=== PATIENT | male | born 1990 | race African-American/Black ===

== ENCOUNTER 2022-06-10 10:44 | Inpatient (IN) | payer OTHER ==
[2022-06-10] MEDS ORDERED: SODIUM CHLORIDE 0.9% 1,000 ML IV ONE ×2 (11:34→15:25)
--- NOTE | 2022-06-10 11:34 | ED ---
General Adult HPI - General Chief complaint: Weakness Stated complaint: Sickle Cell Time Seen by Provider: 06/10/22 11:23 Source: patient, RN notes reviewed Mode of arrival: ambulatory Limitations: no limitations - History of Present Illness Initial comments: 32-year-old -Chinese male with a past medical history significant for sickle cell disease presents to the emergency department for generalized fatigue. He reports that he felt this way for approximately 2 weeks. He reports that it was worse today as he was not able to get a good night's sleep last night. He denies any recent known sick contacts. He reports accompanying symptoms of palpitations. He denies any dizziness, lightheadedness, chest pain, shortness of breath, cough, abdominal pain, nausea, vomiting with this. He does report that his last bowel movement was yesterday and was non-bloody diarrhea. - Related Data Home Medications Medication Instructions Recorded Confirmed No Known Home Medications 06/10/22 06/10/22 Allergies Allergy/AdvReac Type Severity Reaction Status Date / Time cefazolin Allergy Rash/Hives Verified 06/10/22 13:07 Review of Systems ROS Statement: Those systems with pertinent positive or pertinent negative responses have been documented in the HPI. ROS Other: All systems not noted in ROS Statement are negative. Past Medical History Additional Past Medical History / Comment(s): sickle cell History of Any Multi-Drug Resistant Organisms: None Reported Past Surgical History: Cholecystectomy Past Psychological History: No Psychological Hx Reported Smoking Status: Current every day smoker Past Alcohol Use History: None Reported Past Drug Use History: None Reported General Exam Limitations: no limitations General appearance: alert, in no apparent distress Head exam: Present: atraumatic, normocephalic, normal inspection Eye exam: Present: normal appearance, PERRL, EOMI. Absent: scleral icterus, conjunctival injection, periorbital swelling ENT exam: Present: normal exam, mucous membranes moist Neck exam: Present: normal inspection. Absent: tenderness, meningismus, lymphadenopathy Respiratory exam: Present: normal lung sounds bilaterally. Absent: respiratory distress, wheezes, rales, rhonchi, stridor Cardiovascular Exam: Present: regular rate, normal rhythm, normal heart sounds. Absent: systolic murmur, diastolic murmur, rubs, gallop, clicks GI/Abdominal exam: Present: soft, normal bowel sounds. Absent: distended, tenderness, guarding, rebound, rigid Extremities exam: Present: normal inspection, full ROM, normal capillary refill. Absent: tenderness, pedal edema, joint swelling, calf tenderness Back exam: Present: normal inspection Neurological exam: Present: alert, oriented X3, CN II-XII intact Psychiatric exam: Present: normal affect, normal mood Skin exam: Present: warm, dry, intact, normal color. Absent: rash Course Vital Signs 06/10/22 06/10/22 06/10/22 11:17 12:00 12:11 Temperature 98.4 F 100.0 F H 100.4 F H Pulse Rate 83 77 Respiratory 18 16 Rate Blood Pressure 147/72 118/74 O2 Sat by Pulse 95 Oximetry 06/10/22 06/10/22 06/10/22 13:00 15:00 15:28 Temperature 98.7 F Pulse Rate 77 67 73 Respiratory 16 15 16 Rate Blood Pressure 131/76 121/73 114/69 O2 Sat by Pulse 99 99 99 Oximetry - Reevaluation(s) Reevaluation #1: 06/10/22 13:18 Patient reevaluated. Patient reports feeling tired however he is not in any acute distress. Patient notified awaiting additional test results. Reevaluation #2: 06/10/22 16:[address] Reardon, EMS who agrees and accepts the patient for admission EKG Findings - EKG Comments: EKG Findings:: I interpreted the following: EKG performed at 11:54. Rate 77 bpm normal sinus rhythm, with left ventricular hypertrophy. DC interval 155, QRS duration 94, QT/QTc 352/384 Medical Decision Making - Medical Decision Making Was pt. sent in by a medical professional or institution (, PA, NEUROPHYSIOLOGICAL TECHNICIAN, urgent care, hospital, or senior living...) When possible be specific @ -[No] Did you speak to anyone other than the patient for history (EMS, parent, family, police, friend...)? What history was obtained from this source @ -[No] Did you review nursing and triage notes (agree or disagree)? Why? @ -[I reviewed and agree with nursing and triage notes] Were old charts reviewed (outside hosp., previous admission, EMS record, old EKG, old radiological studies, urgent care reports/EKG's, senior living records)? Report findings @ -[No old charts were reviewed] Differential Diagnosis (chest pain, altered mental status, abdominal pain women, abdominal pain men, vaginal bleeding, weakness, fever, dyspnea, syncope, headache, dizziness, GI bleed, back pain, seizure, CVA, palpatations, mental health, musculoskeletal)? @ -[not applicable] EKG interpreted by me (3pts min.). @ -[As above] X-rays interpreted by me (1pt min.). @ -[None done] CT interpreted by me (1pt min.). @ -[None done] U/S interpreted by me (1pt. min.). @ -[None done] What testing was considered but not performed or refused? (CT, X-rays, U/S, labs)? Why? @ -[None] What meds were considered but not given or refused? Why? @ -[None] Did you discuss the management of the patient with other professionals (professionals i.e. , PA, NEUROPHYSIOLOGICAL TECHNICIAN, lab, RT, psych nurse, social work faculty member, sweatband drummer, teacher, animal park code enforcement officer, pillowcase cleaner)? Give summary @ -[No] Was smoking cessation discussed for >3mins.? @ -[No] Was critical care preformed (if so, how long)? @ -[No] Were there social determinants of health that impacted care today? How? (Homelessness, low income, unemployed, alcoholism, drug addiction, transportation, low edu. Level, literacy, decrease access to med. care, [facility], rehab)? @ -[No] Was there de-escalation of care discussed even if they declined (Discuss DNR or withdrawal of care, Hospice)? DNR status @ -[No] What co-morbidities impacted this encounter? (DM, HTN, Smoking, COPD, CAD, Cancer, CVA, ARF, Chemo, Hep., AIDS, mental health diagnosis, sleep apnea, morbid obesity)? @ -[None] Was patient admitted / discharged? Hospital course, mention meds given and route, prescriptions, significant lab abnormalities, going to OR and other pertinent info. @ -Admission. This is a 32-year-old -Chinese male who presents to the emergency department with sickle cell crisis. Patient had a thorough history and physical exam performed on the ED. Visible exam is essentially unremarkable heart rate regular rate and rhythm, lungs clear to auscultation bilaterally abdomen is soft and nontender. Patient in no acute distress. Patient was given 2 L of IV fluids and given Tylenol Motrin for his fever. Patient had lab work and imaging performed: Labs remarkable for WBCs 8.9, hemoglobin 7.3, reticulocyte 25.7, BMP unre markable BUN 6, creatinine 0.56, initial troponin 0.050, second troponin 0.251 urinalysis negative Covid, RSV, influenza negative Chest x-ray negative for intrapleural process I discussed the results in detail with the patient verbalized understanding and all questions were addressed. It is my decision to admit the patient for minimum of 1-2 nights for further observation. Case discussed with Dr. Reardon who agrees and accepts the patient for admission. Case discussed with [facility]. H[facility] who agrees with plan of care Undiagnosed new problem with uncertain prognosis? @ -[No] Drug Therapy requiring intensive monitoring for toxicity (Heparin, Nitro, Insulin, Cardizem)? @ -[No] Were any procedures done? @ -[No] Diagnosis/symptom? @ -sickle cell crisis - generalized weakness Acute, or Chronic, or Acute on Chronic? @ -acute Uncomplicated (without systemic symptoms) or Complicated (systemic symptoms)? @ -uncomplicated Side effects of treatment? @ -[No] Exacerbation, Progression, or Severe Exacerbation? @ -[No] Poses a threat to life or bodily function? How? (Chest pain, [place], [place], pneumonia, PE, COPD, DKA, ARF, appy, cholecystitis, CVA, Diverticulitis, Homicidal, Suicidal, threat to staff... and all critical care pts) @ -low likelihood - Lab Data Result diagrams: 06/11/22 07:31 06/11/22 07:31 Lab Results 06/10/22 06/10/22 06/10/22 Range/Units 12:11 12:11 12:11 WBC 8.9 (3.8-10.6) k/uL RBC 2.20 L (4.30-5.90) m/uL Hgb 7.3 L (13.0-17.5) gm/dL Hct 21.3 L (39.0-53.0) % MCV 96.8 (80.0-100.0) fL MCH 33.2 (25.0-35.0) pg MCHC 34.3 (31.0-37.0) g/dL RDW 24.6 H (11.5-15.5) % Plt Count 205 (150-450) k/uL MPV 9.6 Neutrophils % (Manual) 57 % Lymphocytes % (Manual) 34 % Monocytes % (Manual) 9 % Eosinophils % (Manual) 1 % Myelocytes % 1 % Neutrophils # (Manual) 5.07 (1.3-7.7) k/uL Lymphocytes # (Manual) 3.03 (1.0-4.8) k/uL Monocytes # (Manual) 0.80 (0-1.0) k/uL Eosinophils # (Manual) 0.09 (0-0.7) k/uL Myelocytes # (Manual) 0.09 H (0) k/uL Nucleated RBCs 6 H (0-0) /100 WBC Manual Slide Review Performed Polychromasia Present Hypochromasia Slight Hyperchromasia Moderate Poikilocytosis Marked Anisocytosis Marked Microcytosis Slight Macrocytosis Moderate Sickle Cells Present Target Cells Present Stomatocytes Present Retic Count (0.5-2.0) % PT 11.0 (9.0-12.0) sec INR 1.1 (<1.2) APTT 25.8 (22.0-30.0) sec Sodium (137-145) mmol/L Potassium (3.5-5.1) mmol/L Chloride (98-107) mmol/L Carbon Dioxide (22-30) mmol/L Anion Gap mmol/L BUN (9-20) mg/dL Creatinine (0.66-1.25) mg/dL Est GFR (CKD-EPI)AfAm (>60 ml/min/1.73 sqM) Est GFR (CKD-EPI)NonAf (>60 ml/min/1.73 sqM) Glucose (74-99) mg/dL Calcium (8.4-10.2) mg/dL Total Bilirubin (0.2-1.3) mg/dL AST (17-59) U/L ALT (4-49) U/L Alkaline Phosphatase (38-126) U/L Troponin I (0.000-0.034) ng/mL Total Protein (6.3-8.2) g/dL Albumin (3.5-5.0) g/dL Urine Color Yellow Urine Appearance Clear (Clear) Urine pH 7.0 (5.0-8.0) Ur Specific [place] 1.005 (1.001-1.035) Urine Protein Negative (Negative) Urine Glucose (UA) Negative (Negative) Urine Ketones Negative (Negative) Urine Blood Negative (Negative) Urine Nitrite Negative (Negative) Urine Bilirubin Negative (Negative) Urine Urobilinogen 3.0 (<2.0) mg/dL Ur Leukocyte Esterase Negative (Negative) Influenza Type A (PCR) (Not Detectd) Influenza Type B (PCR) (Not Detectd) RSV (PCR) (Not Detectd) SARS-CoV-2 (PCR) (Not Detectd) Blood Type Confirm 06/10/22 06/10/22 06/10/22 Range/Units 12:11 12:11 12:11 WBC (3.8-10.6) k/uL RBC (4.30-5.90) m/uL Hgb (13.0-17.5) gm/dL Hct (39.0-53.0) % MCV (80.0-100.0) fL MCH (25.0-35.0) pg MCHC (31.0-37.0) g/dL RDW (11.5-15.5) % Plt Count (150-450) k/uL MPV Neutrophils % (Manual) % Lymphocytes % (Manual) % Monocytes % (Manual) % Eosinophils % (Manual) % Myelocytes % % Neutrophils # (Manual) (1.3-7.7) k/uL Lymphocytes # (Manual) (1.0-4.8) k/uL Monocytes # (Manual) (0-1.0) k/uL Eosinophils # (Manual) (0-0.7) k/uL Myelocytes # (Manual) (0) k/uL Nucleated RBCs (0-0) /100 WBC Manual Slide Review Polychromasia Hypochromasia Hyperchromasia Poikilocytosis Anisocytosis Microcytosis Macrocytosis Sickle Cells Target Cells Stomatocytes Retic Count (0.5-2.0) % PT (9.0-12.0) sec INR (<1.2) APTT (22.0-30.0) sec Sodium 139 (137-145) mmol/L Potassium 4.1 (3.5-5.1) mmol/L Chloride 112 H (98-107) mmol/L Carbon Dioxide 21 L (22-30) mmol/L Anion Gap 6 mmol/L BUN 6 L (9-20) mg/dL Creatinine 0.56 L (0.66-1.25) mg/dL Est GFR (CKD-EPI)AfAm >90 (>60 ml/min/1.73 sqM) Est GFR (CKD-EPI)NonAf >90 (>60 ml/min/1.73 sqM) Glucose 83 (74-99) mg/dL Calcium 9.0 (8.4-10.2) mg/dL Total Bilirubin 3.5 H (0.2-1.3) mg/dL AST 53 (17-59) U/L ALT 22 (4-49) U/L Alkaline Phosphatase 168 H (38-126) U/L Troponin I 0.050 H* (0.000-0.034) ng/mL Total Protein 7.7 (6.3-8.2) g/dL Albumin 3.9 (3.5-5.0) g/dL Urine Color Urine Appearance (Clear) Urine pH (5.0-8.0) Ur Specific [place] (1.001-1.035) Urine Protein (Negative) Urine Glucose (UA) (Negative) Urine Ketones (Negative) Urine Blood (Negative) Urine Nitrite (Negative) Urine Bilirubin (Negative) Urine Urobilinogen (<2.0) mg/dL Ur Leukocyte Esterase (Negative) Influenza Type A (PCR) Not Detected (Not Detectd) Influenza Type B (PCR) Not Detected (Not Detectd) RSV (PCR) Not Detected (Not Detectd) SARS-CoV-2 (PCR) Not Detected (Not Detectd) Blood Type Confirm 06/10/22 06/10/22 06/10/22 Range/Units 12:11 12:11 13:55 WBC (3.8-10.6) k/uL RBC (4.30-5.90) m/uL Hgb (13.0-17.5) gm/dL Hct (39.0-53.0) % MCV (80.0-100.0) fL MCH (25.0-35.0) pg MCHC (31.0-37.0) g/dL RDW (11.5-15.5) % Plt Count (150-450) k/uL MPV Neutrophils % (Manual) % Lymphocytes % (Manual) % Monocytes % (Manual) % Eosinophils % (Manual) % Myelocytes % % Neutrophils # (Manual) (1.3-7.7) k/uL Lymphocytes # (Manual) (1.0-4.8) k/uL Monocytes # (Manual) (0-1.0) k/uL Eosinophils # (Manual) (0-0.7) k/uL Myelocytes # (Manual) (0) k/uL Nucleated RBCs (0-0) /100 WBC Manual Slide Review Polychromasia Hypochromasia Hyperchromasia Poikilocytosis Anisocytosis Microcytosis Macrocytosis Sickle Cells Target Cells Stomatocytes Retic Count 25.7 H (0.5-2.0) % PT (9.0-12.0) sec INR (<1.2) APTT (22.0-30.0) sec Sodium (137-145) mmol/L Potassium (3.5-5.1) mmol/L Chloride (98-107) mmol/L Carbon Dioxide (22-30) mmol/L Anion Gap mmol/L BUN (9-20) mg/dL Creatinine (0.66-1.25) mg/dL Est GFR (CKD-EPI)AfAm (>60 ml/min/1.73 sqM) Est GFR (CKD-EPI)NonAf (>60 ml/min/1.73 sqM) Glucose (74-99) mg/dL Calcium (8.4-10.2) mg/dL Total Bilirubin (0.2-1.3) mg/dL AST (17-59) U/L ALT (4-49) U/L Alkaline Phosphatase (38-126) U/L Troponin I 0.051 H* (0.000-0.034) ng/mL Total Protein (6.3-8.2) g/dL Albumin (3.5-5.0) g/dL Urine Color Urine Appearance (Clear) Urine pH (5.0-8.0) Ur Specific [place] (1.001-1.035) Urine Protein (Negative) Urine Glucose (UA) (Negative) Urine Ketones (Negative) Urine Blood (Negative) Urine Nitrite (Negative) Urine Bilirubin (Negative) Urine Urobilinogen (<2.0) mg/dL Ur Leukocyte Esterase (Negative) Influenza Type A (PCR) (Not Detectd) Influenza Type B (PCR) (Not Detectd) RSV (PCR) (Not Detectd) SARS-CoV-2 (PCR) (Not Detectd) Blood Type Confirm A Positive Disposition Clinical Impression: Sickle cell anemia with crisis, Fatigue Disposition: ADMITTED IP TO THIS HOSP Condition: Fair Is patient prescribed a controlled substance at d/c from ED?: No Time of Disposition: 15:12
--- NOTE | 2022-06-10 12:28 | XR ---
EXAMINATION TYPE: XR chest 2V DATE OF EXAM: 06/10/2022 COMPARISON: NONE HISTORY: Palpitations. TECHNIQUE: Frontal and lateral views of the chest are obtained. FINDINGS: There is no focal air space opacity, pleural effusion, or pneumothorax seen. The cardiac silhouette size is within normal limits. The osseous structures are intact. Overlying EKG leads are noted. IMPRESSION: No acute cardiopulmonary process.
[2022-06-10 12:46] LABS: Anisocytosis Marked; HCT 21.3 % (39.0-53.0); HGB 7.3 gm/dL (13.0-17.5); Hyperchromasia Moderate; Hypochromasia Slight; MCH 33.2 pg (25.0-35.0); MCHC 34.3 g/dL (31.0-37.0); MCV 96.8 fL (80.0-100.0); Macrocytosis Moderate; Mean Platelet Volume 9.6; Microcytosis Slight; Platelet Count 205 k/uL (150-450); Poikilocytosis Marked; RDW 24.6 % (11.5-15.5)
[2022-06-10 12:51] LABS: ALT 22 U/L (4-49); AST 53 U/L (17-59); African American GFR (CKD) >90 (>60 ml/min/1.73 sqM); Albumin 3.9 g/dL (3.5-5.0); Alkaline Phosphatase 168 U/L (38-126); Anion Gap 6 mmol/L; Blood Urea Nitrogen 6 mg/dL (9-20); Carbon Dioxide 21 mmol/L (22-30); Chloride 112 mmol/L (98-107); Glucose 83 mg/dL (74-99); Non-African American GFR(CKD) >90 (>60 ml/min/1.73 sqM); Potassium 4.1 mmol/L (3.5-5.1); Sodium 139 mmol/L (137-145); Total Bilirubin 3.5 mg/dL (0.2-1.3); Total Protein 7.7 g/dL (6.3-8.2)
[2022-06-10 12:54] LABS: INR 1.1 (<1.2); Partial Thromboplastin Time 25.8 sec (22.0-30.0)
[2022-06-10 12:55] LABS: Appearance,Urine Clear (Clear); Bilirubin,Urine Negative (Negative); Blood,Urine Negative (Negative); Color,Urine Yellow; Glucose,Urine (UA) Negative (Negative); Ketones,Urine Negative (Negative); Leukocyte Esterase,Urine Negative (Negative); Nitrite,Urine Negative (Negative); Protein,Urine Negative (Negative); Specific Gravity,Urine 1.005 (1.001-1.035)
[2022-06-10] MEDS ORDERED: IBUPROFEN 600 MG TAB PO STA (12:57)
[2022-06-10 13:34] LABS: Eosinophils # (M) 0.09 k/uL (0-0.7); Myelocytes # (M) 0.09 k/uL (0); Myelocytes % 1 %; Neutrophils % (M) 57 %; Nucleated Red Blood Cells 6 /100 WBC (0-0); Total Cells Counted 200
[2022-06-10 13:35] LABS: Lymphocytes # (M) 3.03 k/uL (1.0-4.8); Neutrophils # (M) 5.07 k/uL (1.3-7.7); WBC 8.9 k/uL (3.8-10.6)
[2022-06-10 13:36] LABS: Polychromasia Present; Sickle Cells Present; Target Cells Present
[2022-06-10 13:37] LABS: Stomatocytes Present
[2022-06-10] MEDS: ACETAMINOPHEN TAB 325 MG TAB PO STA ×2 (13:47→13:54)
[2022-06-10] MEDS ORDERED: NALOXONE 0.4 MG/ML 1 ML VIAL IV PRN (16:06)
[2022-06-10] MEDS ORDERED: ACETAMINOPHEN TAB 325 MG TAB PO PRN (16:06)
[2022-06-10 17:00] LABS: Reticulocyte % 25.7 % (0.5-2.0)
[2022-06-10] MEDS: SODIUM CHLORIDE 0.9% 1,000 ML IV SCH (18:19)
[2022-06-10] MEDS: IBUPROFEN 400 MG TAB PO PRN (20:45)
[2022-06-10] MEDS: NICOTINE 14MG/24HR PATCH TRANSDERM SCH (20:48)
[2022-06-11] MEDS: SODIUM CHLORIDE 0.9% 1,000 ML IV SCH ×2 (06:18→21:33)
[2022-06-11] MEDS: IBUPROFEN 400 MG TAB PO PRN ×2 (06:18→20:10)
[2022-06-11] MEDS: NICOTINE 14MG/24HR PATCH TRANSDERM SCH (08:21)
[2022-06-11 08:58] LABS: Anisocytosis Marked; Hypochromasia Marked; MCH 33.1 pg (25.0-35.0); MCHC 32.5 g/dL (31.0-37.0); Macrocytosis Marked; Mean Platelet Volume 9.3; Platelet Count 177 k/uL (150-450); Poikilocytosis Marked; RBC 1.95 m/uL (4.30-5.90)
[2022-06-11 09:10] LABS: RDW 25.8 % (11.5-15.5)
[2022-06-11 09:11] LABS: HCT 19.8 % (39.0-53.0); HGB 6.4 gm/dL (13.0-17.5); MCV 101.8 fL (80.0-100.0)
[2022-06-11 09:20] LABS: African American GFR (CKD) >90 (>60 ml/min/1.73 sqM); Anion Gap 4 mmol/L; Blood Urea Nitrogen 8 mg/dL (9-20); Calcium 8.4 mg/dL (8.4-10.2); Carbon Dioxide 18 mmol/L (22-30); Chloride 119 mmol/L (98-107); Glucose 78 mg/dL (74-99); Non-African American GFR(CKD) >90 (>60 ml/min/1.73 sqM); Potassium 4.8 mmol/L (3.5-5.1); Sodium 141 mmol/L (137-145)
--- NOTE | 2022-06-11 10:05 | P.CRDCN ---
History of Present Illness Consult date: 06/11/22 History of present illness: HISTORY OF PRESENT ILLNESS: This is a 32-year-old male with a past medical history significant for sickle cell anemia and nicotine dependence. 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 We have been asked to see the patient in consultation for abnormal troponins. Patient examined at the bedside. Patient presented to the ER with a chief complaint of generalized weakness and fatigue. Patient without complaints of chest pain or pressure. No shortness of breath. Vital signs are stable. * EKG reveals sinus mechanism with signs of LVH * Chest xray negative for acute process * Laboratory data: WBC 8.9. Hemoglobin 7.3. Platelet count 205. Sodium 139. Potassium 4.1. BUN 6. Creatinine 0.56. Troponin 0.050. 0.051. * Current home cardiac medications include none REVIEW OF SYSTEMS: At the time of my exam: CONSTITUTIONAL: Denies fever or chills. HEENT: Denies blurred vision, vision changes, or eye pain. Denies hemoptysis CARDIOVASCULAR: Denies chest pain. Denies orthopnea. Denies PND. Denies palpitations RESPIRATORY: Denies shortness of breath. GASTROINTESTINAL: Denies abdominal pain. Denies nausea or vomiting. HEMATOLOGIC: Denies bleeding disorders. GENITOURINARY: Denies any blood in urine. SKIN: Denies pruitis. Denies rash. PHYSICAL EXAM: VITAL SIGNS: Reviewed. GENERAL: Well-developed in no acute distress. HEENT: Head is normocephalic. Pupils are equal, round. Sclerae anicteric. Mucous membranes of the mouth are moist. Neck supple. No JVD or thyromegaly LUNGS: Respirations even and unlabored. Lungs essentially clear to auscultation bilaterally. HEART: Regular rate and rhythm. S1 and S2 heard. + systolic murmur ABDOMEN: Soft. Nondistended. Nontender. EXTREMITIES: Normal range of motion. No clubbing or cyanosis. Peripheral pulse s intact. No lower extremity edema NEUROLOGIC: Awake and alert. Oriented x 3. ASSESSMENT: Generalized weakness Sickle cell anemia Abnormal troponin, flat, no suggestive of ACS, likely secondary to above Nicotine dependence PLAN: An acute coronary event has been ruled out Obtain 2-D echo to assess cardiac structure and function Smoking cessation recommended If no significant abnormalities noted on echocardiogram, no further recommendations from a cardiac standpoint Nurse practitioner note has been reviewed by physician. Signing provider agrees with the documented findings, assessment, and plan of care. Past Medical History Additional Past Medical History / Comment(s): sickle cell History of Any Multi-Drug Resistant Organisms: None Reported Past Surgical History: Cholecystectomy Past Anesthesia/Blood Transfusion Reactions: No Reported Reaction Past Psychological History: No Psychological Hx Reported Smoking Status: Current every day smoker Past Alcohol Use History: None Reported Past Drug Use History: None Reported Medications and Allergies Home Medications Medication Instructions Recorded Confirmed Type No Known Home Medications 06/10/22 06/10/22 History Allergies Allergy/AdvReac Type Severity Reaction Status Date / Time cefazolin Allergy Rash/Hives Verified 06/10/22 13:07 Physical Exam Vitals: Vital Signs Temp Pulse Pulse Resp BP BP Pulse Ox 06/11/22 04:00 97.5 F L 75 16 96/53 92 L 06/11/22 01:48 78 18 06/11/22 00:00 78 18 104/53 94 L 06/10/22 20:00 97.9 F 68 18 112/50 94 L 06/10/22 15:28 73 16 114/69 99 06/10/22 15:00 98.7 F 67 15 121/73 99 06/10/22 13:00 77 16 131/76 99 06/10/22 12:11 100.4 F H 06/10/22 12:00 100.0 F H 77 16 118/74 06/10/22 11:17 98.4 F 83 18 147/72 95 Intake and Output 06/10/22 06/11/22 06/11/22 22:59 06:59 14:59 Other: Voiding Method Toilet Toilet # Voids 1 Weight 64.41 kg Results 06/11/22 07:31 06/11/22 07:31 Cardiac Enzymes 06/10/22 06/10/22 06/10/22 Range/Units 12:11 12:11 13:55 AST 53 (17-59) U/L Troponin I 0.050 H* 0.051 H* (0.000-0.034) ng/mL Coagulation 06/10/22 Range/Units 12:11 PT 11.0 (9.0-12.0) sec APTT 25.8 (22.0-30.0) sec CBC 06/10/22 Range/Units 12:11 WBC 8.9 (3.8-10.6) k/uL RBC 2.20 L (4.30-5.90) m/uL Hgb 7.3 L (13.0-17.5) gm/dL Hct 21.3 L (39.0-53.0) % Plt Count 205 (150-450) k/uL Comprehensive Metabolic Panel 06/10/22 Range/Units 12:11 Sodium 139 (137-145) mmol/L Potassium 4.1 (3.5-5.1) mmol/L Chloride 112 H (98-107) mmol/L Carbon Dioxide 21 L (22-30) mmol/L BUN 6 L (9-20) mg/dL Creatinine 0.56 L (0.66-1.25) mg/dL Glucose 83 (74-99) mg/dL Calcium 9.0 (8.4-10.2) mg/dL AST 53 (17-59) U/L ALT 22 (4-49) U/L Alkaline Phosphatase 168 H (38-126) U/L Total Protein 7.7 (6.3-8.2) g/dL Albumin 3.9 (3.5-5.0) g/dL Current Medications Generic Name Dose Route Start Last Admin Trade Name Freq PRN Reason Stop Dose Admin Acetaminophen 650 mg 06/10/22 16:06 Acetaminophen Tab 325 Mg Tab PO Q6HR PRN Mild Pain or Fever > 100.5 Sodium Chloride 1,000 mls @ 75 mls/hr 06/10/22 16:15 06/11/22 06:18 Saline 0.9% IV 75 mls/hr .[id number] CHANDNI Administration Ibuprofen 400 mg 06/10/22 16:06 06/11/22 06:18 Ibuprofen 400 Mg Tab PO 400 mg Q6HR PRN Administration Mild Pain or Fever > 100.5 Naloxone HCl 0.2 mg 06/10/22 16:06 Naloxone 0.4 Mg/Ml 1 Ml Vial IV Q2M PRN Opioid Reversal Nicotine 1 patch 06/10/22 20:45 06/10/22 20:48 Nicotine 14mg/24hr Patch TRANSDERM 1 patch DAILY CHANDNI Administration Intake and Output 06/10/22 06/11/22 06/11/22 22:59 06:59 14:59 Other: Voiding Method Toilet Toilet # Voids 1 Weight 64.41 kg 06/10/22 12:11 06/10/22 12:11
[2022-06-11 10:45] LABS: Total Bilirubin 3.5 mg/dL (0.2-1.3)
[2022-06-11 10:57] LABS: Reticulocyte % 27.8 % (0.5-2.0)
[2022-06-11 13:07] LABS: Band Neutrophils % 1 %; Metamyelocytes % 1 %; Neutrophils % (M) 45 %; Nucleated Red Blood Cells 6 /100 WBC (0-0); Total Cells Counted 200
[2022-06-11 13:08] LABS: Basophils # (M) 0.08 k/uL (0-0.2); Eosinophils # (M) 0.33 k/uL (0-0.7); Metamyelocytes # (M) 0.08 k/uL (0); WBC 8.2 k/uL (3.8-10.6)
[2022-06-11 13:09] LABS: Sickle Cells Present; Target Cells Present
[2022-06-11 13:10] LABS: Polychromasia Present
--- NOTE | 2022-06-11 18:43 | P.CONS ---
History of Present Illness - Reason for Consult Consult date: 06/11/22 sickle cell anemia Requesting physician: Lisa Almeida - Chief Complaint fatigue and dizziness - History of Present Illness patient is a 32-year-old male with a significant history of sickle cell anemia, diagnosed in childhood. We were consulted for sickle cell anemia. He is a patient of Dr. Brown out of [facility]. He reports last f/u with Dr. Brown was 3-4 years ago, and has been off of hydrea for same amount of time. Pt reports his last sickle cell crisis was approx 5 years ago at which time he had an exchange transfusion. He reports intermittent transient painful priapism and pain in toes. Patient presented to the emergency room for fatigue, dizziness and palpitations. Patient reports dizziness and palpitations have subsided since admission, but is still experiencing fatigue. Hemoglobin 6.4, hematocrit 19.8, platelets 177,000. Reticulocytes 25.7. Bilirubin 3.5. Coags normal. Patient was given 2 L normal saline bolus in the ER, and continues on IV hydration. He is on 2 L supplemental oxygen via nasal cannula. And is taking Motrin for pain with adequate control of pain. Review of Systems 10 point ROS is negative except as stated in HPI Past Medical History Additional Past Medical History / Comment(s): sickle cell History of Any Multi-Drug Resistant Organisms: None Reported Past Surgical History: Cholecystectomy Past Anesthesia/Blood Transfusion Reactions: No Reported Reaction Past Psychological History: No Psychological Hx Reported Smoking Status: Current every day smoker Past Alcohol Use History: None Reported Past Drug Use History: None Reported Medications and Allergies Home Medications Medication Instructions Recorded Confirmed Type No Known Home Medications 06/10/22 06/10/22 History Allergies Allergy/AdvReac Type Severity Reaction Status Date / Time cefazolin Allergy Rash/Hives Verified 06/10/22 13:07 Physical Exam Vitals: Vital Signs Temp Pulse Pulse Resp BP BP Pulse Ox 06/11/22 14:24 97.8 F 81 16 126/63 94 L 06/11/22 12:24 71 18 115/58 99 06/11/22 12:04 63 16 113/64 100 06/11/22 12:03 61 16 113/64 100 06/11/22 11:54 97.5 F L 73 18 112/61 99 06/11/22 08:23 97.5 F L 70 15 102/54 95 06/11/22 04:00 97.5 F L 75 16 96/53 92 L 06/11/22 01:48 78 18 06/11/22 00:00 78 18 104/53 94 L 06/10/22 20:00 97.9 F 68 18 112/50 94 L Intake and Output 06/11/22 06/11/22 06/11/22 06:59 14:59 22:59 Intake Total 546 Balance 546 Intake: Oral 236 Blood Product 310 Rc As-1 Unit 310 [id number] Other: Voiding Method Toilet Toilet # Voids 1 2 - Constitutional General appearance: average body habitus, no acute distress - EENT Eyes: anicteric sclerae, EOMI ENT: hearing grossly normal - Respiratory Respiratory: bilateral: CTA - Cardiovascular Rhythm: regular Heart sounds: normal: S1, S2 Abnormal Heart Sounds: no systolic murmur, no diastolic murmur, no rub, no S3 Gallop, no S4 Gallop, no click, no other - Gastrointestinal General gastrointestinal: soft, no tenderness - Integumentary Integumentary: pale - Neurologic grossly intact - Musculoskeletal Musculoskeletal: strength equal bilaterally - Psychiatric Psychiatric: A&O x's 3, appropriate affect, intact judgment & insight Results CBC & Chem 7: 06/11/22 07:31 06/11/22 07:31 Labs: Abnormal Lab Results - Last 24 Hours (Table) 06/10/22 06/11/22 06/11/22 Range/Units 12:11 07:31 07:31 RBC 1.95 L (4.30-5.90) m/uL Hgb 6.4 L* (13.0-17.5) gm/dL Hct 19.8 L* (39.0-53.0) % MCV 101.8 H D (80.0-100.0) fL RDW 25.8 H (11.5-15.5) % Metamyelocytes # (Man) 0.08 H (0) k/uL Nucleated RBCs 6 H (0-0) /100 WBC Macrocytosis Marked A Retic Count 25.7 H (0.5-2.0) % Chloride 119 H (98-107) mmol/L Carbon Dioxide 18 L (22-30) mmol/L BUN 8 L (9-20) mg/dL Creatinine 0.51 L (0.66-1.25) mg/dL Total Bilirubin (0.2-1.3) mg/dL Lactate Dehydrogenase (120-246) U/L Crossmatch 06/11/22 06/11/22 06/11/22 Range/Units 09:52 09:52 09:52 RBC (4.30-5.90) m/uL Hgb (13.0-17.5) gm/dL Hct (39.0-53.0) % MCV (80.0-100.0) fL RDW (11.5-15.5) % Metamyelocytes # (Man) (0) k/uL Nucleated RBCs (0-0) /100 WBC Macrocytosis Retic Count 27.8 H (0.5-2.0) % Chloride (98-107) mmol/L Carbon Dioxide (22-30) mmol/L BUN (9-20) mg/dL Creatinine (0.66-1.25) mg/dL Total Bilirubin 3.5 H (0.2-1.3) mg/dL Lactate Dehydrogenase 463 H (120-246) U/L Crossmatch See Detail Chest x-ray: report reviewed Assessment and Plan (1) Sickle cell anemia with crisis Current Visit: Yes Status: Acute Priority: High Code(s): D57.00 - HB-SS DISEASE WITH CRISIS, UNSPECIFIED SNOMED Code(s): 611168774 Plan: Sickle cell anemia: -Hgb 6.4, hct 19.8, MCV 101.8, plt 177,000 -1 unit PRBCs ordered -Hemolysis workup ordered -Plan for supportive care. Will continue IV hydration, supplemental oxygen and ibuprofen/tylenol for pain control -Will continue to monitor counts, CBC in AM -Plan for hydrea upon discharge and encouraged pt to reestablish care with Dr. Brown at [facility] Dr attests: I have performed H&P and developed impression and plan of care for patient, discussed with dictator. I agree with dictated note, documented as a scribe
--- NOTE | 2022-06-12 02:55 | HP ---
HISTORY AND PHYSICAL CHIEF COMPLAINT: Weakness and fatigue. HISTORY OF PRESENT ILLNESS: This is a 32-year-old gentleman with a past medical history of multiple medical problems including sickle cell anemia, admitted with weakness and fatigue, some mild diffuse aches and pains. The patient was admitted for further evaluation and treatment. Hemoglobin was found to be 7.3, gone down to 6.4. Retic count was 27.8, indicating possibly sickle cell crisis. Troponins elevated also. There is no history of any fever, rigors, or chills at this time. PAST MEDICAL HISTORY: Sickle cell anemia. Rest of the history and rest of the chart is also reviewed. HOME MEDICATIONS: None. ALLERGIES: Cefazolin. FAMILY HISTORY: No history of heart disease or strokes in the family. SOCIAL HISTORY: History of smoking. REVIEW OF SYSTEMS: A 14-point review is negative as mentioned earlier. PHYSICAL EXAMINATION: VITAL SIGNS: Pulse is 61, blood pressure n, respirations 16. HEENT: Conjunctivae normal. NECK: No jugular venous distention. CARDIOVASCULAR: S1, S2 muffled. RESPIRATORY: Breath sounds diminished at the bases. No rhonchi. No crackles. ABDOMEN: Soft. LEGS: No edema. NERVOUS SYSTEM: No focal deficits. SKIN: No ulcers, rashes, or bleeding. JOINTS: No active deforming arthropathy. LABORATORY DATA: Reviewed. ASSESSMENT: 1. Generalized fatigue, possibly sickle cell crisis. 2. Anemia. 3. Elevated reticulocyte count. 4. Troponin 0.050. 5. Multiple medical issues. RECOMMENDATIONS: This is a 32-year-old gentleman who presented with multiple complex medical issues, we will monitor the patient closely. I would also continue to follow up with Hematology, Oncology transfusion. Cardiology is following the patient closely and the prognosis guarded because of multiple complex medical issues. Pain management. Otherwise, I would recommend cultures as well and further recommendations follow. Prognosis guarded. Also obtain a 2D echo with Doppler. MMODL / IJN: [id number] / [facility]
--- NOTE | 2022-06-12 06:31 | P.PN ---
Subjective Progress Note Date: 06/12/22 Principal diagnosis: Abnormal troponin The patient is a 32-year-old -[place] gentleman who was admitted to the hospital with sickle cell crisis complicated by anemia. We consulted to see the patient because of abnormal troponin. The patient did not have any symptoms of any chest pain or chest discomfort. The EKG did not show any ischemic changes. Further risk stratification was advised including obtaining an echocardiogram which is still pending. 06/12/2022 The patient was seen and evaluated this morning. He is asymptomatic. He is moderately stable. The hemoglobin was below 7. He received blood. Hemoglobin this morning still pending. Echo still pending. We'll follow-up with the patient Assessment Sickle cell crisis Anemia secondary to the above Evidence of myocardial injury was no evidence of ischemia Plan Continue the current medical regimen Continue monitor the hemoglobin Follow-up on the echo Objective - Vital Signs Vital signs: Vital Signs Temp 97.8 F 06/12/22 03:51 Pulse 82 06/12/22 03:51 Resp 18 06/12/22 03:51 BP 110/68 06/12/22 03:51 Pulse Ox 98 06/12/22 03:51 FiO2 Intake & Output 06/11/22 06/11/22 06/12/22 06:59 18:59 06:59 Intake Total 786 Balance 786 Intake: Oral 476 Blood Product 310 Rc As-1 Unit 310 [id number] Other: Voiding Method Toilet Toilet Toilet # Voids 1 2 - Labs CBC & Chem 7: 06/11/22 07:31 06/11/22 07:31 Labs: Abnormal Lab Results - Last 24 Hours (Table) 06/11/22 06/11/22 06/11/22 Range/Units 07:31 07:31 09:52 RBC 1.95 L (4.30-5.90) m/uL Hgb 6.4 L* (13.0-17.5) gm/dL Hct 19.8 L* (39.0-53.0) % MCV 101.8 H D (80.0-100.0) fL RDW 25.8 H (11.5-15.5) % Metamyelocytes # (Man) 0.08 H (0) k/uL Nucleated RBCs 6 H (0-0) /100 WBC Macrocytosis Marked A Retic Count 27.8 H (0.5-2.0) % Haptoglobin (31.2-198.0) mg/dL Chloride 119 H (98-107) mmol/L Carbon Dioxide 18 L (22-30) mmol/L BUN 8 L (9-20) mg/dL Creatinine 0.51 L (0.66-1.25) mg/dL Total Bilirubin (0.2-1.3) mg/dL Lactate Dehydrogenase (120-246) U/L Crossmatch 06/11/22 06/11/22 06/11/22 Range/Units 09:52 09:52 09:52 RBC (4.30-5.90) m/uL Hgb (13.0-17.5) gm/dL Hct (39.0-53.0) % MCV (80.0-100.0) fL RDW (11.5-15.5) % Metamyelocytes # (Man) (0) k/uL Nucleated RBCs (0-0) /100 WBC Macrocytosis Retic Count (0.5-2.0) % Haptoglobin <10.0 L (31.2-198.0) mg/dL Chloride (98-107) mmol/L Carbon Dioxide (22-30) mmol/L BUN (9-20) mg/dL Creatinine (0.66-1.25) mg/dL Total Bilirubin 3.5 H (0.2-1.3) mg/dL Lactate Dehydrogenase 463 H (120-246) U/L Crossmatch See Detail
[2022-06-12] MEDS: NICOTINE 14MG/24HR PATCH TRANSDERM SCH (08:04)
[2022-06-12] MEDS: IBUPROFEN 400 MG TAB PO PRN ×2 (08:04→19:40)
[2022-06-12 08:09] LABS: Anisocytosis Moderate; HCT 22.5 % (39.0-53.0); HGB 7.8 gm/dL (13.0-17.5); Hyperchromasia Slight; Hypochromasia Slight; MCH 33.7 pg (25.0-35.0); MCHC 34.6 g/dL (31.0-37.0); MCV 97.5 fL (80.0-100.0); Macrocytosis Moderate; Mean Platelet Volume 9.5; Platelet Count 194 k/uL (150-450); Poikilocytosis Marked; RDW 23.3 % (11.5-15.5)
[2022-06-12 08:19] LABS: African American GFR (CKD) >90 (>60 ml/min/1.73 sqM); Anion Gap 6 mmol/L; Blood Urea Nitrogen 9 mg/dL (9-20); Calcium 8.5 mg/dL (8.4-10.2); Carbon Dioxide 19 mmol/L (22-30); Chloride 116 mmol/L (98-107); Glucose 85 mg/dL (74-99); Non-African American GFR(CKD) >90 (>60 ml/min/1.73 sqM); Potassium 4.4 mmol/L (3.5-5.1); Sodium 141 mmol/L (137-145)
[2022-06-12 10:00] LABS: Eosinophils # (M) 0.21 k/uL (0-0.7); Lymphocytes # (M) 3.38 k/uL (1.0-4.8); Monocytes # (M) 0.69 k/uL (0-1.0); Neutrophils # (M) 2.69 k/uL (1.3-7.7); Neutrophils % (M) 39 %; Nucleated Red Blood Cells 5 /100 WBC (0-0); Polychromasia Present; Sickle Cells Present; Total Cells Counted 200; WBC 6.9 k/uL (3.8-10.6)
[2022-06-12 10:01] LABS: Target Cells Present
[2022-06-12] MEDS: SODIUM CHLORIDE 0.9% 1,000 ML IV SCH ×2 (11:49→20:29)
--- NOTE | 2022-06-12 12:38 | CA ---
Transthoracic Echo Report Name: Rno Malone Age: 32 Gender: M : 1990 Exam Date: 06/11/2022 12:47 Exam Location: [employer] Echo Ht (in): 69 Wt (lb): 142 Ordering Physician: Kaleigh Duffy Attending/Referring Phys: [id number], [facility] [employer] Vikram Salinas RDCS Procedure CPT: Indications: LV function Cardiac Hx: Technical Quality: Good Contrast 1: Total Dose (mL): Contrast 2: Total Dose (mL): MEASUREMENTS (Male / Female) Normal Values 2D ECHO LV Diastolic Diameter PLAX 6.2 cm 4.2 - 5.9 / 3.9 - 5.3 cm LV Systolic Diameter PLAX 3.3 cm IVS Diastolic Thickness 1.2 cm 0.6 - 1.0 / 0.6 - 0.9 cm LVPW Diastolic Thickness 1.3 cm 0.6 - 1.0 / 0.6 - 0.9 cm LV Relative Wall Thickness 0.4 RV Internal Dim ED PLAX 3.3 cm LVOT Diameter 2.0 cm LA Systolic Diameter LX 4.6 cm 3.0 - 4.0 / 2.7 - 3.8 cm MV Area Planimetry 16.7 cm??? LV Diastolic Volume MOD BP 154.8 cm??? 67 - 155 / 56 - 104 cm??? LV Systolic Volume MOD BP 60.3 cm??? 22 - 58 / 19 - 49 cm??? LV Ejection Fraction MOD BP 61.1 % >= 55 % LV Diastolic Volume MOD 4C 129.2 cm??? LV Systolic Volume MOD 4C 47.0 cm??? LV Ejection Fraction MOD 4C 63.6 % LV Diastolic Length 4C 8.3 cm LV Systolic Length 4C 6.7 cm LV Diastolic Volume MOD 2C 179.1 cm??? LV Systolic Volume MOD 2C 70.7 cm??? LV Ejection Fraction MOD 2C 60.5 % LV Diastolic Length 2C 8.6 cm LV Systolic Length 2C 6.1 cm Ascending Aorta Diameter 2.2 cm M-MODE LV Diastolic Diameter MM 5.6 cm 4.2 - 5.9 / 3.9 - 5.3 cm LV Systolic Diameter MM 4.0 cm IVS Diastolic Thickness MM 1.2 cm 0.6 - 1.0 / 0.6 - 0.9 cm LVPW Diastolic Thickness MM 1.4 cm 0.6 - 1.0 / 0.6 - 0.9 cm LV Relative Wall Thickness MM 0.5 0.24 - 0.42 / 0.22 - 0.42 LV Mass Index MM 178.1 g/m??? 49 - 115 / 43 - 95 g/m??? RV Diastolic Diameter MM 2.2 cm Aortic Root Diameter MM 3.0 cm LA Systolic Diameter MM 4.4 cm LA Ao Ratio MM 1.5 MV E Point Septal Separation 1.3 cm AV Cusp Separation MM 1.6 cm DOPPLER AV Peak Velocity 143.3 cm/s AV Peak Gradient 8.2 mmHg AV Mean Velocity 95.5 cm/s AV Mean Gradient 4.1 mmHg AV Velocity Time Integral 31.3 cm LVOT Peak Velocity 125.5 cm/s LVOT Peak Gradient 6.3 mmHg LVOT Velocity Time Integral 28.3 cm LVOT Stroke Volume 92.4 cm??? LVOT Stroke Volume Index 51.7 ml/m??? AV Area Cont Eq vti 3.0 cm??? AV Area Cont Eq pk 2.9 cm??? Mitral E Point Velocity 77.1 cm/s Mitral A Point Velocity 60.1 cm/s Mitral E to A Ratio 1.3 MV Deceleration Time 104.1 ms MV E' Velocity 11.0 cm/s Mitral E to MV E' Ratio 7.0 TR Peak Velocity 239.6 cm/s TR Peak Gradient 23.0 mmHg Right Ventricular Systolic Press 31.0 mmHg PV Peak Velocity 125.8 cm/s PV Peak Gradient 6.3 mmHg FINDINGS Left Ventricle Left ventricular ejection fraction is estimated at 55-60 %. Mild concentric left ventricular hypertrophy. Trabeclated LV especially in the apex portion. Normal diatolic function. Right Ventricle Right ventricle at upper limits of normal. RVSP- 31 mm Hg. Right Atrium Mild right atrial dilatation. Left Atrium Mild left atrial dilatation. Mitral Valve Structurally normal mitral valve. Mild to moderate mitral regurgitation. Aortic Valve Trileaflet aortic valve. Tricuspid Valve Mild to moderate tricuspid regurgitation. Pulmonic Valve Trace to mild pulmonic regurgitation. Pericardium Normal pericardium. No pericardial effusion. Aorta Normal size aortic root and proximal ascending aorta. CONCLUSIONS Normal LV systolic function. Mild concentric LVH [id number] mitral regurgitation Mild to moderate tricuspid regurgitation Previewed by: Dr. Lei Graves MD (Electronically Signed) Final Date: 12 June 2022 12:37
--- NOTE | 2022-06-12 13:03 | PN ---
PROGRESS NOTE DATE OF SERVICE: 06/12/2022 SUBJECTIVE: This is a 32-year-old gentleman who was admitted with generalized fatigue and possible sickle cell crisis, closely monitored. No chest pain. No palpitations. No fever. OBJECTIVE: VITAL SIGNS: Pulse 64, blood pressure 116/60, respirations 16. CHEST: Clear to auscultation. CARDIOVASCULAR: S1, S2. Regular. ABDOMEN: Soft. NERVOUS SYSTEM: No focal deficit. LABORATORY DATA: Reviewed. Hemoglobin is 7.8. ASSESSMENT: 1. Generalized fatigue, possible sickle cell crisis. 2. Anemia. 3. Elevated reticulocyte count. 4. Troponin is 0.05. 5. Multiple medical issues. RECOMMENDATIONS: Recommend to continue current medications and symptomatic treatment. Otherwise, increase ambulation. Continue symptomatic treatment. Repeat labs in the morning and possible discharge in the next 24 hours. MMODL / IJN: [id number] /
--- NOTE | 2022-06-12 13:46 | P.PN ---
Subjective Progress Note Date: 06/12/22 -No acute events overnight -Reports having improved pain in the lower back on ibuprofen -He reports having occasional palpitations, but denies any chest pain, diaphoresis, nausea Objective - Vital Signs Vital signs: Vital Signs Temp 97.6 F 06/12/22 11:11 Pulse 64 06/12/22 11:11 Resp 16 06/12/22 11:11 BP 116/65 06/12/22 11:11 Pulse Ox 97 06/12/22 11:11 FiO2 Intake & Output 06/11/22 06/12/22 06/12/22 18:59 06:59 18:59 Intake Total 786 118 Balance 786 118 Intake: Oral 476 118 Blood Product 310 Rc As-1 Unit 310 [id number] Other: Voiding Method Toilet Toilet Toilet # Voids 2 - Constitutional General appearance: Present: cooperative, no acute distress - EENT EENT Comment(s): Mild scleral icterus Eyes: Present: edentulous - Respiratory Respiratory: bilateral: CTA - Cardiovascular Rhythm: regular - Gastrointestinal General gastrointestinal: Present: normal bowel sounds, soft. Absent: distended, tenderness - Neurologic Neurologic: Present: CNII-XII intact - Psychiatric Psychiatric: Present: A&O x's 3 - Labs CBC & Chem 7: 06/12/22 06:55 06/12/22 06:55 Labs: Abnormal Lab Results - Last 24 Hours (Table) 06/11/22 06/11/22 06/12/22 Range/Units 09:52 09:52 06:55 RBC 2.30 L (4.30-5.90) m/uL Hgb 7.8 L (13.0-17.5) gm/dL Hct 22.5 L (39.0-53.0) % RDW 23.3 H (11.5-15.5) % Nucleated RBCs 5 H (0-0) /100 WBC Haptoglobin <10.0 L (31.2-198.0) mg/dL Chloride (98-107) mmol/L Carbon Dioxide (22-30) mmol/L Creatinine (0.66-1.25) mg/dL Crossmatch See Detail 06/12/22 Range/Units 06:55 RBC (4.30-5.90) m/uL Hgb (13.0-17.5) gm/dL Hct (39.0-53.0) % RDW (11.5-15.5) % Nucleated RBCs (0-0) /100 WBC Haptoglobin (31.2-198.0) mg/dL Chloride 116 H (98-107) mmol/L Carbon Dioxide 19 L (22-30) mmol/L Creatinine 0.55 L (0.66-1.25) mg/dL Crossmatch Assessment and Plan (1) Sickle cell anemia with crisis Current Visit: Yes Status: Acute Priority: High Code(s): D57.00 - HB-SS DISEASE WITH CRISIS, UNSPECIFIED SNOMED Code(s): 913225397 Plan: Sickle cell disease with acute pain crisis -Hemoglobin 7.8 from 6.4 yesterday status post 1 unit packed red blood cells consistent with an appropriate response -Hemolysis work-up revealed haptoglobin less than 10 with LDH 463 -Given the appropriate response with transfusion and clinical stability, there is low clinical suspicion of acute hyper hemolysis -Individuals with sickle cell disease often have low haptoglobin due to ongoing chronic hemolysis, which is likely reflected in the hemolysis work-up results -Plan for supportive care. Will continue IV hydration, supplemental oxygen and ibuprofen/tylenol for pain control -He was encouraged to restart Hydrea 500 mg daily outpatient, which was sent to his pharmacy on file -When discussing outpatient follow-up with his original ic designer custom Dr. Brown at [facility], he notes he would rather follow-up closer to [place] where he now lives. He previously followed up with Dr. Brown when he lived in [place] -We will arrange for follow-up outpatient around the time of discharge -Continue monitoring CBC daily
[2022-06-13 08:12] VITALS: RESP 16
[2022-06-13] MEDS: NICOTINE 14MG/24HR PATCH TRANSDERM SCH (08:13)
[2022-06-13] MEDS: IBUPROFEN 400 MG TAB PO PRN (08:13)
[2022-06-13 08:18] LABS: Anisocytosis Moderate; HGB 7.6 gm/dL (13.0-17.5); Hyperchromasia Slight; Hypochromasia Slight; MCH 32.3 pg (25.0-35.0); MCHC 32.9 g/dL (31.0-37.0); MCV 98.2 fL (80.0-100.0); Macrocytosis Moderate; Mean Platelet Volume 10.6; Platelet Count 157 k/uL (150-450); Poikilocytosis Marked; RBC 2.34 m/uL (4.30-5.90); RDW 22.8 % (11.5-15.5)
--- NOTE | 2022-06-13 08:24 | P.PN ---
Subjective Progress Note Date: 06/13/22 Principal diagnosis: Abnormal troponin The patient is a 32-year-old -[place] gentleman who was admitted to the hospital with sickle cell crisis complicated by anemia. We consulted to see the patient because of abnormal troponin. The patient did not have any symptoms of any chest pain or chest discomfort. The EKG did not show any ischemic changes. Further risk stratification was advised including obtaining an echocardiogram which is still pending. 06/12/2022 The patient was seen and evaluated this morning. He is asymptomatic. He is moderately stable. The hemoglobin was below 7. He received blood. Hemoglobin this morning still pending. Echo still pending. We'll follow-up with the patient June 132022 The patient was seen and evaluated this morning. He is feeling better. He has no pain in the chest. Hemodynamically he is stable. The hemoglobin remained stable as well. He underwent an echo yesterday and that revealed normal biventricular systolic function was mild to moderate mitral and tricuspid regurgitation. Assessment Sickle cell crisis Anemia secondary to the above Evidence of myocardial injury was no evidence of ischemia Plan Continue the current medical regimen Continue monitor the hemoglobin Possible discharge in the next 12-24 hour Objective - Vital Signs Vital signs: Vital Signs Temp 97.6 F 06/13/22 08:10 Pulse 65 06/13/22 08:15 Resp 16 06/13/22 08:15 BP 101/58 06/13/22 08:10 Pulse Ox 99 06/13/22 08:10 FiO2 Intake & Output 06/12/22 06/13/22 06/13/22 18:59 06:59 18:59 Intake Total 718 Balance 718 Intake: IV 600 Sodium Chloride 0.9% 1, 600 000 ml @ 75 mls/hr IV . [id number] Rx#:[id number] Oral 118 Other: Voiding Method Toilet Toilet Toilet # Voids 2 - Labs CBC & Chem 7: 06/12/22 06:55 06/12/22 06:55 Labs: Abnormal Lab Results - Last 24 Hours (Table) 06/12/22 Range/Units 06:55 Nucleated RBCs 5 H (0-0) /100 WBC Microbiology - Last 24 Hours (Table) 06/11/22 14:12 Blood Culture - Preliminary Blood No Growth after 24 hours
[2022-06-13 11:35] LABS: African American GFR (CKD) >90 (>60 ml/min/1.73 sqM); Anion Gap 4 mmol/L; Blood Urea Nitrogen 9 mg/dL (9-20); Calcium 8.8 mg/dL (8.4-10.2); Carbon Dioxide 23 mmol/L (22-30); Chloride 114 mmol/L (98-107); Glucose 96 mg/dL (74-99); Non-African American GFR(CKD) >90 (>60 ml/min/1.73 sqM); Potassium 4.5 mmol/L (3.5-5.1); Sodium 141 mmol/L (137-145)
[2022-06-13 11:52] VITALS: BP 121/71; PULSE 55; TEMP 98.1
[2022-06-13 15:21] LABS: Eosinophils # (M) 0.09 k/uL (0-0.7); Monocytes # (M) 1.11 k/uL (0-1.0); Neutrophils # (M) 3.32 k/uL (1.3-7.7); Neutrophils % (M) 39 %; Nucleated Red Blood Cells 3 /100 WBC (0-0); Total Cells Counted 100; WBC 8.5 k/uL (3.8-10.6)
[2022-06-13 15:22] LABS: Crenated RBC Present; Polychromasia Present; Sickle Cells Present
--- NOTE | 2022-06-15 20:07 | P.DS ---
Providers Date of admission: 06/10/22 15:27 Attending physician: Gary Reardon Consults: 06/10/22 16:06 Consult Physician Routine Consulting Provider: Geoff Valdez Consult Reason/Comments: elevated troponin Do you want consulting provider notified?: Yes Consult Physician Routine Consulting Provider: Rasta Leiva Consult Reason/Comments: Sickle cell Do you want consulting provider notified?: Yes Primary care physician: Stated None Hospital Course: Final Diagnosis Generalized fatigue likely from sickle cell crisis Acute pain from sickle cell crisis Anemia Elevated reticulocyte count Troponin elevation flat and likely from sickle cell crisis Nicotine dependence Discharge disposition Patient is stable for discharge home. Patient recommended to follow up with his primary provider in 1 to 2 days. Recommend to follow up with hematology Dr. Brown at [facility]. Information has been provided for Dr. Warner office if patient wishes to follow up closer to home. Repeat CBC outpatient. Patient has been recommended to resume Hydrea 500 mg daily. Ibuprofen recommending for pain. Hospital Course This is a 32 year old male with medical history sickle cell anemia and tobacco use. Patient presents to the hospital with generalized weakness and fatigue and is admitted for sickle cell crisis and was found to have troponin elevation which was attributed to the sickle cell crisis. Patient had echocardiogram done showing normal LV systolic function. Mild to moderate mitral regurgitation. Mild to moderate tricuspid regurgitation. Hemoglobin was 7.3 on admission and did drop to 6.2. Patient received 1 unit of packed red blood cells. Hematology was also consulted. 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. Patient was treated with ibuprofen for pain and his symptoms improved. Cleared for discharge by all consultants. 06/13/2022 Patient is evaluated today resting in bed. No acute events overnight. Denies shortness of breath. Denies chest pain. Lungs are clear, S1 S2 auscultated. Abdomen is soft and nontender. Alert x 3 focal neurological exam is negative. Hemoglobin has stabilized at 7.6. He is afebrile, heart rate 55, blood pressure 121/71, and 100% on room air. Please see medication reconciliation for a list of current medication. Thank you for allowing us to participate in the care of this patient. The impression and plan of care has been dictated by Jessika Vides, Nurse Practitioner as directed. Dr. Brianne MD I have performed a history and physical examination and medical decision making of this patient, discussed the same with the dictator, and agree with the dictators assessment and plan as written, documented as a scribe. Based on total visit time, I have performed more than 50% of this visit. Patient Condition at Discharge: Stable Plan - Discharge Summary Discharge Rx Participant: No New Discharge Prescriptions: New Hydroxyurea [Hydrea] 500 mg PO DAILY 30 Days #30 capsule Ibuprofen [Motrin] 400 mg PO Q6HR PRN #12 tab PRN Reason: Pain Acetaminophen Tab [Tylenol] 650 mg PO Q6HR PRN tab PRN Reason: Mild Pain Or Fever > 100.5 Discharge Medication List Hydroxyurea [Hydrea] 500 mg PO DAILY 30 Days #30 capsule 06/12/22 [Rx] Acetaminophen Tab [Tylenol] 650 mg PO Q6HR PRN tab 06/13/22 [Rx] Ibuprofen [Motrin] 400 mg PO Q6HR PRN #12 tab 06/13/22 [Rx] Follow up Appointment(s)/Referral(s): Da Alan MD [STAFF PHYSICIAN] - 1 Week Pantera Helms MD [STAFF PHYSICIAN] - 1-2 days Ambulatory/Diagnostic Orders: Complete Blood Count w/diff [LAB.AMB] Time Frame: 1 Week, Location: None Selected Patient Instructions/Handouts: Sickle Cell Crisis (DC) Activity/Diet/Wound Care/Special Instructions: Follow up with your finisher [employer] Dr. Brown at [facility] Information has been provided for Dr. Warner office if you wish to follow up closer to home Repeat CBC outpatient. Follow up with PCP in 1 to 2 days. Discharge Disposition: HOME SELF-CARE
== END 2022-06-13 16:30 | disposition home or self-care (01) | DRG 662 ==
LOC: EC 10:44 → 3SCARD 15:27
PROVIDERS: ADMIT Hospitalist; ATTEND Hospitalist
PROC: 30233N1 Transfusion of Nonautologous Red Blood Cells into Peripheral Vein, Percutaneous Approach (ICD-10-PCS; principal; 2022-06-11)
DX: D57.00 Hb-SS disease with crisis, unspecified (principal); I5A Non-ischemic myocardial injury (non-traumatic); I08.1 Rheumatic disorders of both mitral and tricuspid valves; F17.210 Nicotine dependence, cigarettes, uncomplicated; R77.8 Other specified abnormalities of plasma proteins; R01.1 Cardiac murmur, unspecified; M54.50 Low back pain, unspecified; N48.30 Priapism, unspecified; M79.676 Pain in unspecified toe(s); Z20.822 Contact with and (suspected) exposure to COVID-19; Z88.1 Allergy status to other antibiotic agents; Z28.310 Unvaccinated for COVID-19
CPT/HCPCS: 36415; 71046; 80048; 80053; 81003; 82247; 83010; 83615; 84484; 85025; 85045; 85610; 85730; 86850; 86900; 86901; 86920; 87040; 87636; 93005; 93306

== ENCOUNTER 2022-10-07 02:35 | Emergency (ER) | payer OTHER ==
[2022-10-07 02:42] VITALS: TEMP 98.1
[2022-10-07] MEDS ORDERED: HYDROmorphone 1 MG/ML 1 ML SYRINGE IVP STA ×2 (03:02→03:48)
[2022-10-07] MEDS ORDERED: SODIUM CHLORIDE 0.9% 1,000 ML IV STA (03:03)
--- NOTE | 2022-10-07 03:04 | ED ---
General Adult HPI - General Chief complaint: Chest Pain Stated complaint: Chest Pain Time Seen by Provider: 10/07/22 02:58 Source: patient Mode of arrival: wheelchair Limitations: no limitations - History of Present Illness Initial comments: Dictation was produced using [employer] dictation software. please excuse any grammatical, word or spelling errors. Chief Complaint: 32-year-old male presents with chest pain History of Present Illness: 32-year-old male who has past medical history of sickle cell disease. The last several hours she is developed severe chest pain. States that the chest pain is sharp and located to is lower anterior chest. States it radiates down both extremities. Denies any numbness and paresthesias to the arms or legs. Patient also complaining of back pain. He's had sickle cell pain similar to this however has never had it in his chest. Denies any shortness of breath. No cough. Denies any fever constitutional symptoms. Patient's stamp analyst Dr. Alan. Most recent transfusion was in May of this year. The ROS documented in this emergency department record has been reviewed and confirmed by me. Those systems with pertinent positive or negative responses have been documented in the HPI. All other systems are other negative and/or noncontributory. - Related Data Previous Rx's Medication Instructions Recorded Hydroxyurea [Hydrea] 500 mg PO DAILY 30 Days #30 capsule 06/12/22 Acetaminophen Tab [Tylenol] 650 mg PO Q6HR PRN tab 06/13/22 Ibuprofen [Motrin] 400 mg PO Q6HR PRN #12 tab 06/13/22 Allergies Allergy/AdvReac Type Severity Reaction Status Date / Time cefazolin Allergy Rash/Hives Verified 10/07/22 02:39 Review of Systems ROS Statement: Those systems with pertinent positive or pertinent negative responses have been documented in the HPI. ROS Other: All systems not noted in ROS Statement are negative. Past Medical History Additional Past Medical History / Comment(s): sickle cell History of Any Multi-Drug Resistant Organisms: None Reported Past Surgical History: Cholecystectomy Past Anesthesia/Blood Transfusion Reactions: No Reported Reaction Past Psychological History: No Psychological Hx Reported Smoking Status: Current every day smoker Past Alcohol Use History: None Reported Past Drug Use History: None Reported General Exam - General Exam Comments Initial Comments: PHYSICAL EXAM: General Impression: Alert and oriented x3, acute distress secondary to pain HEENT: Normocephalic atraumatic, extra-ocular movements intact, pupils equal and reactive to light bilaterally, mucous membranes moist. Cardiovascular: Heart regular rate and rhythm Chest: Able to complete full sentences, no retractions, no tachypnea Abdomen: abdomen soft, non-tender, non-distended, no organomegaly Musculoskeletal: Pulses present and equal in all extremities, no peripheral edema Motor: no focal deficits noted Neurological: CN II-XII grossly intact, no focal motor or sensory deficits noted Skin: Intact with no visualized rashes Psych: Normal affect and mood Limitations: no limitations Course Vital Signs 10/07/22 10/07/22 02:40 06:00 Temperature 98.1 F Pulse Rate 58 L 60 Respiratory 18 16 Rate Blood Pressure 159/87 110/68 O2 Sat by Pulse 98 99 Oximetry EKG Findings - EKG Comments: EKG Findings:: My EKG interpretation: Ventricular rate 59, sinus bradycardia,. 175, QRS 80, QTc 386. No MT prolongation, no QTC prolongation, no ST or T-wave changes noted. Overall, this EKG is unremarkable Medical Decision Making - Medical Decision Making Was pt. sent in by a medical professional or institution (, PA, MANAGER IN HOME, urgent care, hospital, or custodial...) When possible be specific @ -No Did you speak to anyone other than the patient for history (EMS, parent, family, police, friend...)? What history was obtained from this source @ -No Did you review nursing and triage notes (agree or disagree)? Why? @ -I reviewed and agree with nursing and triage notes Were old charts reviewed (outside hosp., previous admission, EMS record, old EKG, old radiological studies, urgent care reports/EKG's, custodial records)? Report findings @ -No old charts were reviewed Differential Diagnosis (chest pain, altered mental status, abdominal pain women, abdominal pain men, vaginal bleeding, musculoskeletal, weakness, fever, dyspn ea, syncope, headache, dizziness, GI bleed, back pain, seizure, CVA, palpatations, mental health)? @ -Differential Chest Pain: Stable Angina, Unstable Angina, STEMI, NSTEMI Aortic Dissection, Pneumothorax, Musculoskeletal, Esophageal Spasm GERD, Cholecystitis, Pancreatitis, Zoster, this is not meant to be an all-inclusive list. EKG interpreted by me (3pts min.). @ -See above X-rays interpreted by me (1pt min.). @ -Chest x-ray is unremarkable CT interpreted by me (1pt min.). @ -CT angiography of the aorta shows no acute processes U/S interpreted by me (1pt. min.). @ -None done What testing was considered but not performed or refused? (CT, X-rays, U/S, labs)? Why? @ -None What meds were considered but not given or refused? Why? @ -None Did you discuss the management of the patient with other professionals (professionals i.e. , PA, MANAGER IN HOME, lab, RT, psych nurse, social work supervisor, tail board worker, teacher, articulation officer, rn case management)? Give summary @ -No Was smoking cessation discussed for >3mins.? @ -No Was critical care preformed (if so, how long)? @ -No Were there social determinants of health that impacted care today? How? (Homelessness, low income, unemployed, alcoholism, drug addiction, lomeli sportation, low edu. Level, literacy, decrease access to med. care, custodial, rehab)? @ -No Was there de-escalation of care discussed even if they declined (Discuss DNR or withdrawal of care, Hospice)? DNR status @ -No What co-morbidities impacted this encounter? (DM, HTN, Smoking, COPD, CAD, Cancer, CVA, ARF, Chemo, Hep., AIDS, mental health diagnosis, sleep apnea, morbid obesity)? @ -History of sickle cell disease Was patient admitted / discharged? Hospital course, mention meds given and route, prescriptions, significant lab abnormalities, going to OR and other pertinent info. @ -32-year-old male presents emergency department with chest pain. He has past medical history of sickle cell disease. Gait is atypical for acute coronary syndrome. Vital signs stable. Imaging studies are negative. Laboratory evaluation shows depressed reticulocyte count 13.4. Rest of labs none acceptable limits. Disposition options discussed with patient patient's feeling improved after analgesia and IV fluids. Patient requesting discharge. He is told of his reticulocyte count. Return precautions discussed. Symptoms likely secondary to sickle cell pain Undiagnosed new problem with uncertain prognosis? @ -No Drug Therapy requiring intensive monitoring for toxicity (Heparin, Nitro, Insulin, Cardizem)? @ -No Were any procedures done? @ -No Diagnosis/symptom? Acute, or Chronic, or Acute on Chronic? Uncomplicated (without systemic symptoms) or Complicated (systemic symptoms)? @ -1. Sickle cell pain crisis Side effects of treatment? @ -No Exacerbation, Progression, or Severe Exacerbation? @ -No Poses a threat to life or bodily function? How? (Chest pain, USA, MD, pneumonia, PE, COPD, DKA, ARF, appy, cholecystitis, CVA, Diverticulitis, Homicidal, Suicidal, threat to staff... and all critical care pts) @ -yes - Lab Data Result diagrams: 10/07/22 03:02 10/07/22 03:02 Lab Results 10/07/22 10/07/22 10/07/22 Range/Units 03:02 03:02 03:02 WBC 9.8 (3.8-10.6) k/uL RBC 2.10 L (4.30-5.90) m/uL Hgb 8.1 L (13.0-17.5) gm/dL Hct 23.9 L (39.0-53.0) % MCV 113.3 H (80.0-100.0) fL MCH 38.4 H (25.0-35.0) pg MCHC 33.9 (31.0-37.0) g/dL RDW 18.8 H (11.5-15.5) % Plt Count 190 (150-450) k/uL MPV 9.6 Neutrophils % (Manual) 52 % Band Neuts % (Manual) 2 % Lymphocytes % (Manual) 36 % Monocytes % (Manual) 9 % Eosinophils % (Manual) 1 % Neutrophils # (Manual) 5.20 (1.3-7.7) k/uL Lymphocytes # (Manual) 3.53 (1.0-4.8) k/uL Monocytes # (Manual) 0.88 (0-1.0) k/uL Eosinophils # (Manual) 0.10 (0-0.7) k/uL Nucleated RBCs 2 H (0-0) /100 WBC Manual Slide Review Performed Polychromasia Present Poikilocytosis Marked Poikilocytosis (manual Present Anisocytosis Slight Anisocytosis (manual) Present Macrocytosis Marked A Spherocytes Present Sickle Cells Present Target Cells Present [place] Bodies Present Retic Count 13.4 H (0.5-2.0) % PT 10.8 (9.0-12.0) sec INR 1.0 (<1.2) APTT 27.8 (22.0-30.0) sec D-Dimer 1.27 H (<0.60) mg/L FEU Sodium 135 L (137-145) mmol/L Potassium 3.8 (3.5-5.1) mmol/L Chloride 110 H (98-107) mmol/L Carbon Dioxide 16 L (22-30) mmol/L Anion Gap 9 mmol/L BUN 9 (9-20) mg/dL Creatinine 0.62 L (0.66-1.25) mg/dL Est GFR (CKD-EPI)AfAm >90 (>60 ml/min/1.73 sqM) Est GFR (CKD-EPI)NonAf >90 (>60 ml/min/1.73 sqM) Glucose 116 H (74-99) mg/dL Calcium 8.6 (8.4-10.2) mg/dL Total Bilirubin 3.2 H (0.2-1.3) mg/dL AST 46 (17-59) U/L ALT 25 (4-49) U/L Alkaline Phosphatase 208 H (38-126) U/L Troponin I (0.000-0.034) ng/mL Total Protein 7.1 (6.3-8.2) g/dL Albumin 3.6 (3.5-5.0) g/dL 10/07/22 Range/Units 03:02 WBC (3.8-10.6) k/uL RBC (4.30-5.90) m/uL Hgb (13.0-17.5) gm/dL Hct (39.0-53.0) % MCV (80.0-100.0) fL MCH (25.0-35.0) pg MCHC (31.0-37.0) g/dL RDW (11.5-15.5) % Plt Count (150-450) k/uL MPV Neutrophils % (Manual) % Band Neuts % (Manual) % Lymphocytes % (Manual) % Monocytes % (Manual) % Eosinophils % (Manual) % Neutrophils # (Manual) (1.3-7.7) k/uL Lymphocytes # (Manual) (1.0-4.8) k/uL Monocytes # (Manual) (0-1.0) k/uL Eosinophils # (Manual) (0-0.7) k/uL Nucleated RBCs (0-0) /100 WBC Manual Slide Review Polychromasia Poikilocytosis Poikilocytosis (manual Anisocytosis Anisocytosis (manual) Macrocytosis Spherocytes Sickle Cells Target Cells [place] Bodies Retic Count (0.5-2.0) % PT (9.0-12.0) sec INR (<1.2) APTT (22.0-30.0) sec D-Dimer (<0.60) mg/L FEU Sodium (137-145) mmol/L Potassium (3.5-5.1) mmol/L Chloride (98-107) mmol/L Carbon Dioxide (22-30) mmol/L Anion Gap mmol/L BUN (9-20) mg/dL Creatinine (0.66-1.25) mg/dL Est GFR (CKD-EPI)AfAm (>60 ml/min/1.73 sqM) Est GFR (CKD-EPI)NonAf (>60 ml/min/1.73 sqM) Glucose (74-99) mg/dL Calcium (8.4-10.2) mg/dL Total Bilirubin (0.2-1.3) mg/dL AST (17-59) U/L ALT (4-49) U/L Alkaline Phosphatase (38-126) U/L Troponin I 0.019 (0.000-0.034) ng/mL Total Protein (6.3-8.2) g/dL Albumin (3.5-5.0) g/dL Disposition Clinical Impression: Sickle cell anemia with pain Disposition: HOME SELF-CARE Condition: Good Instructions (If sedation given, give patient instructions): Chest Pain (ED), Sickle Cell Disease (DC) Is patient prescribed a controlled substance at d/c from ED?: No Referrals: Da Alan MD [Primary Care Provider] - 1-2 days Time of Disposition: 07:17
[2022-10-07 03:19] LABS: Anisocytosis Slight; HCT 23.9 % (39.0-53.0); HGB 8.1 gm/dL (13.0-17.5); MCH 38.4 pg (25.0-35.0); MCHC 33.9 g/dL (31.0-37.0); MCV 113.3 fL (80.0-100.0); Macrocytosis Marked; Mean Platelet Volume 9.6; Platelet Count 190 k/uL (150-450); Poikilocytosis Marked; RDW 18.8 % (11.5-15.5); Reticulocyte % 13.4 % (0.5-2.0)
[2022-10-07 03:33] LABS: ALT 25 U/L (4-49); AST 46 U/L (17-59); African American GFR (CKD) >90 (>60 ml/min/1.73 sqM); Albumin 3.6 g/dL (3.5-5.0); Alkaline Phosphatase 208 U/L (38-126); Anion Gap 9 mmol/L; Blood Urea Nitrogen 9 mg/dL (9-20); Calcium 8.6 mg/dL (8.4-10.2); Carbon Dioxide 16 mmol/L (22-30); Chloride 110 mmol/L (98-107); Glucose 116 mg/dL (74-99); Non-African American GFR(CKD) >90 (>60 ml/min/1.73 sqM); Potassium 3.8 mmol/L (3.5-5.1); Sodium 135 mmol/L (137-145); Total Bilirubin 3.2 mg/dL (0.2-1.3); Total Protein 7.1 g/dL (6.3-8.2)
[2022-10-07 03:54] LABS: Partial Thromboplastin Time 27.8 sec (22.0-30.0); Prothrombin Time 10.8 sec (9.0-12.0)
[2022-10-07 04:04] LABS: Band Neutrophils % 2 %; Lymphocytes # (M) 3.53 k/uL (1.0-4.8); Monocytes # (M) 0.88 k/uL (0-1.0); Neutrophils % (M) 52 %; Nucleated Red Blood Cells 2 /100 WBC (0-0); Total Cells Counted 200; WBC 9.8 k/uL (3.8-10.6)
[2022-10-07 04:05] LABS: Anisocytosis (M) Present; Poikilocytosis (M) Present; Polychromasia Present
[2022-10-07 04:06] LABS: Spherocytes Present; Target Cells Present
[2022-10-07 04:07] LABS: Howell-Jolly Bodies Present; Sickle Cells Present
--- NOTE | 2022-10-07 06:09 | XR ---
EXAM: XR Chest, 2 Views CLINICAL HISTORY: : chest pain TECHNIQUE: Frontal and lateral views of the chest. COMPARISON: June 10, 2022. FINDINGS: Lungs: Unremarkable. No infiltration, atelectasis or mass density. Pleural space: Unremarkable. No pneumothorax. No pleural fluid. Heart: Borderline cardiomegaly. Mediastinum: Unremarkable. Bones/joints: Unremarkable. No acute abnormalities. IMPRESSION: No acute findings in the chest.
--- NOTE | 2022-10-07 07:13 | CT ---
EXAM: CT Angiography Chest With Intravenous Contrast CLINICAL HISTORY: suspect aortic dissection TECHNIQUE: Axial computed tomographic angiography images of the chest with intravenous contrast. CTDI is 32.442 mGy and DLP is 401.1 mGy-cm. This CT exam was performed using one or more of the following dose reduction techniques: automated exposure control, adjustment of the mA and/or kV according to patient size, and/or use of iterative reconstruction technique. MIP reconstructed images were created and reviewed. COMPARISON: No relevant prior studies available. FINDINGS: Pulmonary arteries: Unremarkable. No pulmonary embolism. Aorta: No acute findings. No thoracic aortic aneurysm or dissection. Lungs: Mild posterior dependent atelectasis in the lower lobes. No mass. Pleural space: Unremarkable. No significant effusion. No pneumothorax. Heart: Unremarkable. No cardiomegaly. No significant pericardial effusion. No evidence of RV dysfunction. Bones/joints: No acute fracture. No dislocation. Soft tissues: Unremarkable. Lymph nodes: Unremarkable. No enlarged lymph nodes. IMPRESSION: No evidence of thoracic aortic aneurysm or dissection. No pulmonary emboli. The EXAM: CT Angiography Abdomen and Pelvis With Intravenous Contrast CLINICAL HISTORY: suspect aortic dissection TECHNIQUE: Axial computed tomographic angiography images of the abdomen and pelvis with intravenous contrast. CTDI is 32.442 mGy and DLP is 401.1 mGy-cm. This CT exam was performed using one or more of the following dose reduction techniques: automated exposure control, adjustment of the mA and/or kV according to patient size, and/or use of iterative reconstruction technique. MIP reconstructed images were created and reviewed. COMPARISON: No relevant prior studies available. FINDINGS: VASCULATURE: Aorta: No acute findings. No abdominal aortic aneurysm. No dissection. Celiac trunk and mesenteric arteries: No acute findings. No occlusion or significant stenosis. Renal arteries: No acute findings. No occlusion or significant stenosis. Iliac arteries: No acute findings. No occlusion or significant stenosis. Lung bases: Unremarkable. No mass. No consolidation. ABDOMEN: Liver: Unremarkable. No mass. Gallbladder and bile ducts: Unremarkable. No calcified stones. No ductal dilation. Pancreas: Unremarkable. No ductal dilation. No mass. Spleen: Unremarkable. No splenomegaly. Adrenals: Unremarkable. No mass. Kidneys and ureters: Unremarkable. No hydronephrosis. No solid mass. Stomach and bowel: Unremarkable. No obstruction. No mucosal thickening. PELVIS: Appendix: No findings to suggest acute appendicitis. Bladder: Distended urinary bladder. Reproductive: Unremarkable as visualized. ABDOMEN and PELVIS: Intraperitoneal space: Unremarkable. No significant fluid collection. No free air. Bones/joints: No acute fracture. No dislocation. Soft tissues: Unremarkable. Lymph nodes: Unremarkable. No enlarged lymph nodes. IMPRESSION: Negative CTA of the abdomen and pelvis.
[2022-10-07 07:24] VITALS: BP 108/70; PULSE 78; RESP 18
== END 2022-10-07 07:24 | disposition home or self-care (01) ==
LOC: EC 02:35
DX: D57.00 Hb-SS disease with crisis, unspecified (principal); F17.200 Nicotine dependence, unspecified, uncomplicated; Z88.1 Allergy status to other antibiotic agents; Z90.49 Acquired absence of other specified parts of digestive tract
CPT/HCPCS: 36415; 93005; 85379; 80053; 84484; 85025; 85610; 85045; 85730; 71046; 71275; 74174; 99285; 96374; 96376; 96361; J1170; Q9967

== ENCOUNTER 2023-05-20 10:18 | Inpatient (IN) | payer OTHER ==
--- NOTE | 2023-05-20 10:54 | ED ---
General Adult HPI - General Source: patient, RN notes reviewed Mode of arrival: ambulatory Limitations: no limitations <Bipin Hills - Last Filed: 05/20/23 10:53> - General Source: patient, RN notes reviewed Mode of arrival: ambulatory Limitations: no limitations <Krysta Ross - Last Filed: 05/22/23 11:26> - General Chief complaint: Recheck/Abnormal Lab/Rx Stated complaint: Weakness/ Pain all over Time Seen by Provider: 05/20/23 10:27 - History of Present Illness Initial comments: 33-year-old male presents emergency department with chief complaint of sickle cell problems. Patient states he feels like he sickle cell crisis in which she has pain in his chest denies fevers denies shortness of breath. Patient states this feels like the pain that he had in the past. (Bipin Hills) Patient is a 33-year-old male presented to ER with a chief complaint of pain all over. Patient does have a history significant for sickle cell disease. He believes he is in crisis as his pain feels similar. He states for the past 2 to 3 days he has been having increase in pain all over. He is taken prescribed oxycodone with minor relief of pain. Patient denies any recent fevers, chills, night sweats, cough, congestion, sore throat. He does report mild chest pain but denies shortness of breath. Denies any constipation/diarrhea, urinary complaints. (Krysta Ross) - Related Data Home Medications Medication Instructions Recorded Confirmed Folic Acid 1 mg PO DAILY 05/20/23 05/20/23 Hydroxyurea [Hydrea] 1,000 mg PO DAILY 05/20/23 05/20/23 Naloxone HCl [Narcan] 4 mg NASAL DIRECTED PRN 05/20/23 05/20/23 oxyCODONE-APAP 5-325MG [Percocet 1 tab PO Q6H PRN 05/20/23 05/20/23 5-325 mg] Allergies Allergy/AdvReac Type Severity Reaction Status Date / Time cefazolin Allergy Rash/Hives Verified 05/20/23 13:40 Review of Systems ROS Other: All systems not noted in ROS Statement are negative. <Bipin Hills - Last Filed: 05/20/23 10:53> ROS Other: All systems not noted in ROS Statement are negative. <Krysta Ross - Last Filed: 05/22/23 11:26> ROS Statement: Those systems with pertinent positive or pertinent negative responses have been documented in the HPI. Past Medical History Additional Past Medical History / Comment(s): sickle cell History of Any Multi-Drug Resistant Organisms: None Reported Past Surgical History: Cholecystectomy Past Anesthesia/Blood Transfusion Reactions: No Reported Reaction Past Psychological History: No Psychological Hx Reported Smoking Status: Current every day smoker Past Alcohol Use History: None Reported Past Drug Use History: None Reported <Bipin Hills - Last Filed: 05/20/23 10:53> General Exam Limitations: no limitations <Bipin Hills - Last Filed: 05/20/23 10:53> Limitations: no limitations General appearance: alert, in no apparent distress, other (Laying in position appears in pain.) ENT exam: Present: normal exam, mucous membranes moist Respiratory exam: Present: normal lung sounds bilaterally. Absent: respiratory distress, wheezes, rales, rhonchi, stridor Cardiovascular Exam: Present: regular rate, normal rhythm, normal heart sounds. Absent: systolic murmur, diastolic murmur, rubs, gallop, clicks GI/Abdominal exam: Present: soft, normal bowel sounds. Absent: distended, tenderness, guarding, rebound, rigid Neurological exam: Present: alert, oriented X3, CN II-XII intact Psychiatric exam: Present: normal affect, normal mood Skin exam: Present: warm, dry, intact, normal color. Absent: rash <Krysta Ross - Last Filed: 05/22/23 11:26> - General Exam Comments Initial Comments: Visual Physical Exam Vital signs reviewed General: Well-appearing, nontoxic, no acute distress. Head: Normocephalic, atraumatic Eyes: PERRLA, EOMI ENT: Airway patent Chest: Nonlabored breathing Skin: No visual rash, normal skin tone Neuro: Alert and oriented 3 Musculoskeletal: No gross abnormalities (Bipin Hills) Course <Krytsa Ross - Last Filed: 05/22/23 11:26> Vital Signs 05/20/23 05/20/23 05/20/23 10:48 16:00 18:07 Temperature 98.6 F Pulse Rate 95 76 75 Respiratory 20 18 16 Rate Blood Pressure 156/78 131/71 137/76 O2 Sat by Pulse 98 95 96 Oximetry 05/20/23 05/20/23 19:00 21:10 Temperature 98.4 F Pulse Rate 69 78 Respiratory 18 16 Rate Blood Pressure 152/88 153/88 O2 Sat by Pulse 97 98 Oximetry - Reevaluation(s) Reevaluation #1: 05/20/23 13:[address] Skinner, [facility] physician who accepted medical management. (Krysta Ross) Medical Decision Making <Bipin Hills - Last Filed: 05/20/23 10:53> - Lab Data Result diagrams: 05/22/23 09:00 05/22/23 09:00 - EKG Data -: EKG Interpreted by Me - Radiology Data Radiology results: report reviewed, image reviewed <Krysta Ross - Last Filed: 05/22/23 11:26> - Medical Decision Making I completed the quick note portion of this chart signed Bipin Hills PA-C (Bipin Hills) Was pt. sent in by a medical professional or institution (Dr. PA, D[employer] MECH[employer]IC, urgent care, hospital, or assisted...) When possible be specific @ -No Did you speak to anyone other than the patient for history (EMS, parent, family, police, friend...)? What history was obtained from this source @ -No Did you review nursing and triage notes (agree or disagree)? Why? @ -I reviewed and agree with nursing and triage notes Were old charts reviewed (outside hosp., previous admission, EMS record, old EKG, old radiological studies, urgent care reports/EKG's, assisted records)? Report findings @ -No old charts were reviewed Differential Diagnosis (chest pain, altered mental status, abdominal pain women, abdominal pain men, vaginal bleeding, weakness, fever, dyspnea, syncope, headache, dizziness, GI bleed, back pain, seizure, CVA, palpatations, mental health, musculoskeletal)? @ -Differential Chest Pain: Stable Angina, Unstable Angina, STEMI, NSTEMI Aortic Dissection, Pneumothorax, Musculoskeletal, Esophageal Spasm GERD, Cholecystitis, Pancreatitis, Zoster, this is not meant to be an all-inclusive list. EKG interpreted by me (3pts min.). @ -As above X-rays interpreted by me (1pt min.). @ -Chest x-ray interpreted by me shows no acute cardiopulmonary process. CT interpreted by me (1pt min.). @ -None done U/S interpreted by me (1pt. min.). @ -None done What testing was considered but not performed or refused? (CT, X-rays, U/S, labs)? Why? @ -None What meds were considered but not given or refused? Why? @ -None Did you discuss the management of the patient with other professionals (professionals i.e. , PA, DIESEL BUS MECHANIC, lab, RT, psych nurse, social work job titles, corporate lawyer, teacher, sales promotion officer, case management coordinator)? Give summary @ -No Was smoking cessation discussed for >3mins.? @ -No Was critical care preformed (if so, how long)? @ -No Were there social determinants of health that impacted care today? How? (Homelessness, low income, unemployed, alcoholism, drug addiction, transportation, low edu. Level, literacy, decrease access to med. care, skilled nursing, rehab)? @ -No Was there de-escalation of care discussed even if they declined (Discuss DNR or withdrawal of care, Hospice)? DNR status @ -No What co-morbidities impacted this encounter? (DM, HTN, Smoking, COPD, CAD, Cancer, CVA, ARF, Chemo, Hep., AIDS, mental health diagnosis, sleep apnea, morbid obesity)? @ -Sickle cell disease Was patient admitted / discharged? Hospital course, mention meds given and route, prescriptions, significant lab abnormalities, going to OR and other pertinent info. @ -Admitted. Patient is a 33-year-old male presented to ER with chief complaint of pain all over. History and physical exam completed. Vital stable. Upon evaluation patient was laying in position appearing in pain. Lung sounds clear to auscultation bilaterally. No other acute findings on exam. Labs obtained significant for hemoglobin 8.2, retic count 17.0, troponin 0.043. Influenza A positive. COVID and RSV negative. EKG significant fro normal sinus rhythm without acute evidence of infarct or ishcemia. LVH present. Urine without signs of infection. Patient received IV fluids and Dilaudid in ER with improvement of symptoms. Admission was considered given elevated troponin and pain control. Case discussed with Dr. Skinner, [facility] physician who accepted medical management. Patient agreeable for admission. Cardiology will be on consult. Patient admitted for further treatment. Undiagnosed new problem with uncertain prognosis? @ -No Drug Therapy requiring intensive monitoring for toxicity (Heparin, Nitro, Insulin, Cardizem)? @ -No Were any procedures done? @ -No Diagnosis/symptom? @ -Sickle cell crisis Acute, or Chronic, or Acute on Chronic? @ -Acute Uncomplicated (without systemic symptoms) or Complicated (systemic symptoms)? @ -Complicated Side effects of treatment? @ -No Exacerbation, Progression, or Severe Exacerbation? @ -No Poses a threat to life or bodily function? How? (Chest pain, USA, PR, pneumonia, PE, COPD, DKA, ARF, appy, cholecystitis, CVA, Diverticulitis, Homicidal, Suicidal, threat to staff... and all critical care pts) @ -Yes, sickle cell crisis can lead to life-threatening organ damage. (Krysta Ross) - Lab Data Lab Results 05/20/23 05/20/23 05/20/23 Range/Units 11:39 11:39 12:15 WBC 9.5 (3.8-10.6) k/uL RBC 2.00 L (4.30-5.90) m/uL Hgb 8.2 L (13.0-17.5) gm/dL Hct 23.1 L (39.0-53.0) % MCV 115.4 H (80.0-100.0) fL MCH 41.2 H (25.0-35.0) pg MCHC 35.7 (31.0-37.0) g/dL RDW 20.1 H (11.5-15.5) % Plt Count 187 (150-450) k/uL MPV 10.1 Neutrophils % (Manual) 48 % Band Neuts % (Manual) 1 % Lymphocytes % (Manual) 40 % Monocytes % (Manual) 11 % Eosinophils % (Manual) 2 % Neutrophils # (Manual) 4.60 (1.3-7.7) k/uL Lymphocytes # (Manual) 3.80 (1.0-4.8) k/uL Monocytes # (Manual) 1.05 H (0-1.0) k/uL Eosinophils # (Manual) 0.19 (0-0.7) k/uL Nucleated RBCs 4 H (0-0) /100 WBC Manual Slide Review Performed Polychromasia Present Hyperchromasia Slight Poikilocytosis Marked Anisocytosis Moderate Macrocytosis Marked A Retic Count 17.0 H (0.5-2.0) % PT (10.0-12.5) sec INR (<1.2) APTT (22.0-30.0) sec Sodium 141 (137-145) mmol/L Potassium 4.7 (3.5-5.1) mmol/L Chloride 113 H (98-107) mmol/L Carbon Dioxide 20 L (22-30) mmol/L Anion Gap 8 mmol/L BUN 7 L (9-20) mg/dL Creatinine 0.56 L (0.66-1.25) mg/dL Est GFR (CKD-EPI)AfAm >90 (>60 ml/min/1.73 sqM) Est GFR (CKD-EPI)NonAf >90 (>60 ml/min/1.73 sqM) Glucose 84 (74-99) mg/dL Calcium 9.4 (8.4-10.2) mg/dL Total Bilirubin 2.4 H (0.2-1.3) mg/dL AST 47 (17-59) U/L ALT 19 (4-49) U/L Alkaline Phosphatase 151 H (38-126) U/L Troponin I (0.000-0.034) ng/mL Total Protein 7.1 (6.3-8.2) g/dL Albumin 4.0 (3.5-5.0) g/dL Urine Color Light Yellow Urine Appearance Clear (Clear) Urine pH 6.0 (5.0-8.0) Ur Specific Stanley 1.006 (1.001-1.035) Urine Protein Trace H (Negative) Urine Glucose (UA) Negative (Negative) Urine Ketones Negative (Negative) Urine Blood Negative (Negative) Urine Nitrite Negative (Negative) Urine Bilirubin Negative (Negative) Urine Urobilinogen <2.0 (<2.0) mg/dL Ur Leukocyte Esterase Negative (Negative) Influenza Type A (PCR) (Not Detectd) Influenza Type B (PCR) (Not Detectd) RSV (PCR) (Not Detectd) SARS-CoV-2 (PCR) (Not Detectd) 05/20/23 05/20/23 05/20/23 Range/Units 12:15 12:15 12:15 WBC (3.8-10.6) k/uL RBC (4.30-5.90) m/uL Hgb (13.0-17.5) gm/dL Hct (39.0-53.0) % MCV (80.0-100.0) fL MCH (25.0-35.0) pg MCHC (31.0-37.0) g/dL RDW (11.5-15.5) % Plt Count (150-450) k/uL MPV Neutrophils % (Manual) % Band Neuts % (Manual) % Lymphocytes % (Manual) % Monocytes % (Manual) % Eosinophils % (Manual) % Neutrophils # (Manual) (1.3-7.7) k/uL Lymphocytes # (Manual) (1.0-4.8) k/uL Monocytes # (Manual) (0-1.0) k/uL Eosinophils # (Manual) (0-0.7) k/uL Nucleated RBCs (0-0) /100 WBC Manual Slide Review Polychromasia Hyperchromasia Poikilocytosis Anisocytosis Macrocytosis Retic Count (0.5-2.0) % PT 11.2 (10.0-12.5) sec INR 1.0 (<1.2) APTT 26.8 (22.0-30.0) sec Sodium (137-145) mmol/L Potassium (3.5-5.1) mmol/L Chloride (98-107) mmol/L Carbon Dioxide (22-30) mmol/L Anion Gap mmol/L BUN (9-20) mg/dL Creatinine (0.66-1.25) mg/dL Est GFR (CKD-EPI)AfAm (>60 ml/min/1.73 sqM) Est GFR (CKD-EPI)NonAf (>60 ml/min/1.73 sqM) Glucose (74-99) mg/dL Calcium (8.4-10.2) mg/dL Total Bilirubin (0.2-1.3) mg/dL AST (17-59) U/L ALT (4-49) U/L Alkaline Phosphatase (38-126) U/L Troponin I 0.045 H* (0.000-0.034) ng/mL Total Protein (6.3-8.2) g/dL Albumin (3.5-5.0) g/dL Urine Color Urine Appearance (Clear) Urine pH (5.0-8.0) Ur Specific Stanley (1.001-1.035) Urine Protein (Negative) Urine Glucose (UA) (Negative) Urine Ketones (Negative) Urine Blood (Negative) Urine Nitrite (Negative) Urine Bilirubin (Negative) Urine Urobilinogen (<2.0) mg/dL Ur Leukocyte Esterase (Negative) Influenza Type A (PCR) Detected A (Not Detectd) Influenza Type B (PCR) Not Detected (Not Detectd) RSV (PCR) Not Detected (Not Detectd) SARS-CoV-2 (PCR) Not Detected (Not Detectd) - EKG Data EKG Comments: EKG taken at 11: 51 shows sinus rhythm with no acute ST segment or T wave abnormalities. There is LVH. Ventricular rate 86, CO interval 151, QRS duration 88, QT/QTc 339/382. (Krysta Ross) Disposition <Bipin Hills - Last Filed: 05/20/23 10:53> Time of Disposition: 13:27 <Krysta Ross - Last Filed: 05/22/23 11:26> Clinical Impression: Sickle cell anemia with crisis, Elevated troponin Disposition: ADMITTED IP TO THIS HOSP Condition: Fair
[2023-05-20] MEDS: SODIUM CHLORIDE 0.9% 1,000 ML IV STA (11:55)
[2023-05-20] MEDS: ONDANSETRON 4 MG/2 ML VIAL IVP STA (12:03)
[2023-05-20] MEDS: HYDROmorphone 1 MG/ML 1 ML SYRINGE IVP STA ×2 (12:03→12:55)
[2023-05-20 12:06] LABS: ALT 19 U/L (4-49); AST 47 U/L (17-59); African American GFR (CKD) >90 (>60 ml/min/1.73 sqM); Alkaline Phosphatase 151 U/L (38-126); Anion Gap 8 mmol/L; Blood Urea Nitrogen 7 mg/dL (9-20); Calcium 9.4 mg/dL (8.4-10.2); Carbon Dioxide 20 mmol/L (22-30); Chloride 113 mmol/L (98-107); Glucose 84 mg/dL (74-99); Non-African American GFR(CKD) >90 (>60 ml/min/1.73 sqM); Potassium 4.7 mmol/L (3.5-5.1); Sodium 141 mmol/L (137-145); Total Bilirubin 2.4 mg/dL (0.2-1.3); Total Protein 7.1 g/dL (6.3-8.2)
[2023-05-20 12:22] LABS: Anisocytosis Moderate; HCT 23.1 % (39.0-53.0); HGB 8.2 gm/dL (13.0-17.5); Hyperchromasia Slight; MCH 41.2 pg (25.0-35.0); MCHC 35.7 g/dL (31.0-37.0); MCV 115.4 fL (80.0-100.0); Macrocytosis Marked; Mean Platelet Volume 10.1; Platelet Count 187 k/uL (150-450); Poikilocytosis Marked; RDW 20.1 % (11.5-15.5)
[2023-05-20 12:29] LABS: Appearance,Urine Clear (Clear); Bilirubin,Urine Negative (Negative); Blood,Urine Negative (Negative); Color,Urine Light Yellow; Glucose,Urine (UA) Negative (Negative); Ketones,Urine Negative (Negative); Leukocyte Esterase,Urine Negative (Negative); Nitrite,Urine Negative (Negative); Protein,Urine Trace (Negative); Specific Gravity,Urine 1.006 (1.001-1.035); Urobilinogen,Urine <2.0 mg/dL (<2.0)
[2023-05-20 12:38] LABS: Partial Thromboplastin Time 26.8 sec (22.0-30.0); Prothrombin Time 11.2 sec (10.0-12.5)
--- NOTE | 2023-05-20 13:07 | XR ---
EXAMINATION TYPE: XR chest 2V DATE OF EXAM: 05/20/2023 12:26 PM CLINICAL INDICATION:Male, 33 years old with history of pain; COMPARISON: Chest radiographs from 10/07/2022 TECHNIQUE: XR chest 2V Frontal and lateral views of the chest. FINDINGS: Lungs/Pleura: There is no evidence of pleural effusion, focal consolidation, or pneumothorax. Pulmonary vascularity: Unremarkable. Heart/mediastinum: Cardiomediastinal silhouette is unremarkable. Musculoskeletal: No acute osseous pathology. IMPRESSION: No acute cardiopulmonary disease/process.
[2023-05-20 13:16] LABS: Band Neutrophils % 1 %; Eosinophils # (M) 0.19 k/uL (0-0.7); Monocytes # (M) 1.05 k/uL (0-1.0); Neutrophils % (M) 48 %; Nucleated Red Blood Cells 4 /100 WBC (0-0); Total Cells Counted 200; WBC 9.5 k/uL (3.8-10.6)
[2023-05-20 13:17] LABS: Polychromasia Present
[2023-05-20] MEDS ORDERED: NALOXONE 0.4 MG/ML 1 ML VIAL IV PRN (13:26)
[2023-05-20] MEDS: SODIUM CHLORIDE 0.9% 1,000 ML IV SCH (14:36)
[2023-05-20] MEDS: HYDROmorphone 1 MG/ML 1 ML SYRINGE IVP PRN (14:48)
--- NOTE | 2023-05-20 19:57 | P.HPIM ---
History of Present Illness This is a pleasant 33 years old -Spanish male with past medical history of sickle cell disorder. He follows up with Dr. Alan. 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 Patient presents because of generalized body aches and pain including 8/10 in severity, achy and sharp pain. However patient denies specific chest pain or abdominal pain. No urinary complaint or dysuria. No headache dizziness, limb weakness or numbness. No blurred vision. patient feels generally weak Patient smokes 6 to 7 cigarettes/day and he was counseled to quit and he agrees to the nicotine patch Patient denies chest pain dyspnea coughing. No palpitation. Vitals are stable and patient afebrile Labs stable. Hemoglobin 8.2. Patient has unremarkable INR 1.0. Unremarkable BMP and urinalysis is negative. Influenza A is positive. Chest x-ray is negative for acute process EKG showing sinus rhythm at [address]-T changes. Patient admitted with telemetry monitoring on IV fluid normal saline 75 mL/h Past Medical History Additional Past Medical History / Comment(s): sickle cell History of Any Multi-Drug Resistant Organisms: None Reported Past Surgical History: Cholecystectomy Past Anesthesia/Blood Transfusion Reactions: No Reported Reaction Past Psychological History: No Psychological Hx Reported Smoking Status: Current every day smoker Past Alcohol Use History: None Reported Past Drug Use History: None Reported Medications and Allergies Home Medications Medication Instructions Recorded Confirmed Type Folic Acid 1 mg PO DAILY 05/20/23 05/20/23 History Hydroxyurea [Hydrea] 1,000 mg PO DAILY 05/20/23 05/20/23 History Naloxone HCl [Narcan] 4 mg NASAL DIRECTED PRN 05/20/23 05/20/23 History oxyCODONE-APAP 5-325MG [Percocet 1 tab PO Q6H PRN 05/20/23 05/20/23 History 5-325 mg] Allergies Allergy/AdvReac Type Severity Reaction Status Date / Time cefazolin Allergy Rash/Hives Verified 05/20/23 13:40 Physical Exam Vitals: Vital Signs Temp Pulse Resp BP Pulse Ox 05/20/23 19:00 69 18 152/88 97 05/20/23 18:07 75 16 137/76 96 05/20/23 16:00 76 18 131/71 95 05/20/23 10:48 98.6 F 95 20 156/78 98 Intake and Output 05/20/23 05/20/23 05/20/23 06:59 14:59 22:59 Other: Weight 65.771 kg -GENERAL: The patient is alert and oriented x3, not in any acute distress. Well developed, well nourished. Generally weak and lethargic HEENT: Pupils are round and equally reacting to light. EOMI. No scleral icterus. No conjunctival pallor. Normocephalic, atraumatic. No pharyngeal erythema. No thyromegaly. CARDIOVASCULAR: S1 and S2 present. No murmurs, rubs, or gallops. PULMONARY: Chest is clear to auscultation, no wheezing , no crackles. ABDOMEN: Soft, nontender, nondistended, normoactive bowel sounds. No palpable organomegaly. MUSCULOSKELETAL: No joint swelling or deformity. EXTREMITIES: No cyanosis, clubbing, or pedal edema. NEUROLOGICAL: Gross neurological examination did not reveal any focal deficits. SKIN: No rashes. no petechiae. Results CBC & Chem 7: 05/20/23 11:39 05/20/23 11:39 Labs: Abnormal Lab Results - Last 24 Hours (Table) 05/20/23 05/20/23 05/20/23 Range/Units 11:39 11:39 12:15 RBC 2.00 L (4.30-5.90) m/uL Hgb 8.2 L (13.0-17.5) gm/dL Hct 23.1 L (39.0-53.0) % MCV 115.4 H (80.0-100.0) fL MCH 41.2 H (25.0-35.0) pg RDW 20.1 H (11.5-15.5) % Monocytes # (Manual) 1.05 H (0-1.0) k/uL Nucleated RBCs 4 H (0-0) /100 WBC Macrocytosis Marked A Retic Count 17.0 H (0.5-2.0) % Chloride 113 H (98-107) mmol/L Carbon Dioxide 20 L (22-30) mmol/L BUN 7 L (9-20) mg/dL Creatinine 0.56 L (0.66-1.25) mg/dL Total Bilirubin 2.4 H (0.2-1.3) mg/dL Alkaline Phosphatase 151 H (38-126) U/L Troponin I (0.000-0.034) ng/mL Urine Protein Trace H (Negative) Influenza Type A (PCR) (Not Detectd) 05/20/23 05/20/23 Range/Units 12:15 12:15 RBC (4.30-5.90) m/uL Hgb (13.0-17.5) gm/dL Hct (39.0-53.0) % MCV (80.0-100.0) fL MCH (25.0-35.0) pg RDW (11.5-15.5) % Monocytes # (Manual) (0-1.0) k/uL Nucleated RBCs (0-0) /100 WBC Macrocytosis Retic Count (0.5-2.0) % Chloride (98-107) mmol/L Carbon Dioxide (22-30) mmol/L BUN (9-20) mg/dL Creatinine (0.66-1.25) mg/dL Total Bilirubin (0.2-1.3) mg/dL Alkaline Phosphatase (38-126) U/L Troponin I 0.045 H* (0.000-0.034) ng/mL Urine Protein (Negative) Influenza Type A (PCR) Detected A (Not Detectd) Assessment and Plan Assessment: Influenza A infection Sickle cell disease with possible sickle cell crisis Elevated troponin. Nicotine dependence Generalized weakness secondary to above. Anemia. Plan: Start patient on Tamiflu Continue with normal saline 75 mL/h Pain medication and currently on Dilaudid. Do serial troponin and cardiology consult check echocardiogram Telemetry monitoring Nicotine patch. Labs and medication were reviewed.. Continue same treatment. Continue with symptomatic treatment. Resume home medication. Monitor labs and vitals. DVT and GI prophylaxis. Further recommendations as per clinical course of the patient DVT prophylaxis: Subcutaneous heparin GI Prophylaxis: Pepcid Prognosis is guarded
[2023-05-20] MEDS: OSELTAMIVIR 75 MG CAP PO SCH (20:03)
[2023-05-20] MEDS: NICOTINE 14MG/24HR PATCH TRANSDERM SCH (20:04)
[2023-05-20] MEDS: HEPARIN SODIUM,PORCINE 5,000 UNIT/ML 1 ML VIAL SQ SCH (21:15)
[2023-05-20] MEDS: FAMOTIDINE 20 MG/2 ML VIAL IV SCH (21:15)
[2023-05-21] MEDS: SODIUM CHLORIDE 0.9% 1,000 ML IV SCH (05:52)
[2023-05-21 08:05] LABS: Anisocytosis Moderate; Hyperchromasia Slight; Hypochromasia Slight; MCHC 35.1 g/dL (31.0-37.0); MCV 116.7 fL (80.0-100.0); Macrocytosis Marked; Mean Platelet Volume 8.9; Platelet Count 146 k/uL (150-450); Poikilocytosis Marked; RBC 1.65 m/uL (4.30-5.90); RDW 20.8 % (11.5-15.5)
[2023-05-21 08:12] LABS: HCT 19.2 % (39.0-53.0); HGB 6.8 gm/dL (13.0-17.5)
[2023-05-21 08:20] LABS: African American GFR (CKD) >90 (>60 ml/min/1.73 sqM); Anion Gap 2 mmol/L; Blood Urea Nitrogen 6 mg/dL (9-20); Calcium 8.7 mg/dL (8.4-10.2); Carbon Dioxide 23 mmol/L (22-30); Chloride 113 mmol/L (98-107); Glucose 95 mg/dL (74-99); Non-African American GFR(CKD) >90 (>60 ml/min/1.73 sqM); Potassium 4.4 mmol/L (3.5-5.1); Sodium 138 mmol/L (137-145)
--- NOTE | 2023-05-21 08:33 | P.CRDCN ---
History of Present Illness Consult date: 05/21/23 Chief complaint: Generalized pain History of present illness: The patient is a 33-year-old -[place]ym[place] gentleman with a past medical history significant for sickle cell disease the patient sees a pediatric assistant/oncologist on regular basis and also history of chronic pain. He presented to the hospital complaining of generalized pain including pain in the chest. No shortness of breath and no dizziness or lightheadedness and no feeling of heart racing or fluttering and no presyncope or syncope and no fever or chills or cough or sputum production. He was tested positive for flu. Also he underwent a workup including hemoglobin and that came in to be 6.8. He did not receive a blood as of yet. Beside that he underwent a blood work showed abnormal troponin which appeared to be flat across the board. No history of coronary artery disease or congestive heart failure or cardiac arrhythmia and he does not follow-up with any undercollar maker before. Currently his chest pain-free. He is slightly lethargic. The EKG showed sinus mechanism with nonspecific ST and T wave abnormalities but no ischemic changes noted overall. The physical examination is remarkable for regular rhythm with a systolic murmur at the right and left upper sternal border with diminished breathing sounds bilaterally and no edema was noted. Please note that also the patient underwent a chest x-ray and that showed no acute abnormalities. Assessment Sickle cell disease Anemia secondary to sickle cell crisis Generalized pain including chest pain Plan The pain is likely secondary to severe anemia The evidence of myocardial injury with elevated troponin is secondary to mismatch Consider ruling out severe CAD once the hemoglobin is stable and as an outpat ient Meanwhile obtain an echocardiogram. Other Follow-up with the patient Past Medical History Past Medical History: Blood Disorder Additional Past Medical History / Comment(s): sickle cell History of Any Multi-Drug Resistant Organisms: None Reported Past Surgical History: Cholecystectomy Additional Past Surgical History / Comment(s): 2010 cholecystectomy Past Anesthesia/Blood Transfusion Reactions: No Reported Reaction Past Psychological History: No Psychological Hx Reported Smoking Status: Current every day smoker Past Alcohol Use History: None Reported Past Drug Use History: None Reported Medications and Allergies Home Medications Medication Instructions Recorded Confirmed Type Folic Acid 1 mg PO DAILY 05/20/23 05/20/23 History Hydroxyurea [Hydrea] 1,000 mg PO DAILY 05/20/23 05/20/23 History Naloxone HCl [Narcan] 4 mg NASAL DIRECTED PRN 05/20/23 05/20/23 History oxyCODONE-APAP 5-325MG [Percocet 1 tab PO Q6H PRN 05/20/23 05/20/23 History 5-325 mg] Allergies Allergy/AdvReac Type Severity Reaction Status Date / Time cefazolin Allergy Rash/Hives Verified 05/20/23 13:40 Physical Exam Vitals: Vital Signs Temp Pulse Pulse Resp BP BP Pulse Ox 05/21/23 04:00 98.4 F 89 18 115/56 95 05/21/23 02:00 85 16 05/20/23 22:05 98.1 F 85 16 147/72 100 05/20/23 21:10 98.4 F 78 16 153/88 98 05/20/23 19:00 69 18 152/88 97 05/20/23 18:07 75 16 137/76 96 05/20/23 16:00 76 18 131/71 95 05/20/23 10:48 98.6 F 95 20 156/78 98 Intake and Output 05/20/23 05/21/23 05/21/23 22:59 06:59 14:59 Other: Voiding Method Toilet # Voids 1 Weight 65.771 kg Results 05/21/23 07:36 05/21/23 07:36 Cardiac Enzymes 05/20/23 05/20/23 05/20/23 Range/Units 11:39 12:15 20:36 AST 47 (17-59) U/L Troponin I 0.045 H* 0.053 H* (0.000-0.034) ng/mL 05/20/23 Range/Units 22:56 AST (17-59) U/L Troponin I 0.043 H* (0.000-0.034) ng/mL Coagulation 05/20/23 Range/Units 12:15 PT 11.2 (10.0-12.5) sec APTT 26.8 (22.0-30.0) sec CBC 05/20/23 05/21/23 Range/Units 11:39 07:36 WBC 9.5 9.0 (3.8-10.6) k/uL RBC 2.00 L 1.65 L (4.30-5.90) m/uL Hgb 8.2 L 6.8 L* (13.0-17.5) gm/dL Hct 23.1 L 19.2 L* (39.0-53.0) % Plt Count 187 146 L (150-450) k/uL Comprehensive Metabolic Panel 05/20/23 05/21/23 Range/Units 11:39 07:36 Sodium 141 138 (137-145) mmol/L Potassium 4.7 4.4 (3.5-5.1) mmol/L Chloride 113 H 113 H (98-107) mmol/L Carbon Dioxide 20 L 23 (22-30) mmol/L BUN 7 L 6 L (9-20) mg/dL Creatinine 0.56 L 0.57 L (0.66-1.25) mg/dL Glucose 84 95 (74-99) mg/dL Calcium 9.4 8.7 (8.4-10.2) mg/dL AST 47 (17-59) U/L ALT 19 (4-49) U/L Alkaline Phosphatase 151 H (38-126) U/L Total Protein 7.1 (6.3-8.2) g/dL Albumin 4.0 (3.5-5.0) g/dL Current Medications Generic Name Dose Route Start Last Admin Trade Name Freq PRN Reason Stop Dose Admin Famotidine 20 mg 05/20/23 21:00 05/20/23 21:15 Famotidine 20 Mg/2 Ml Vial IV Not Given Q12HR [facility] Heparin Sodium (Porcine) 5,000 unit 05/20/23 21:00 05/20/23 21:15 Heparin Sodium,Porcine 5,000 Unit/Ml 1 Ml Vial SQ Not Given Q12HR CHANDNI Hydromorphone HCl 1 mg 05/20/23 13:26 05/21/23 04:41 Hydromorphone 1 Mg/Ml 1 Ml Syringe IVP 1 mg Q3HR PRN Administration Severe Pain (Scale 7 to 10) Sodium Chloride 1,000 mls @ 75 mls/hr 05/21/23 05:45 05/21/23 05:52 Saline 0.9% IV 75 mls/hr .[id number] CHANDNI Administration Naloxone HCl 0.2 mg 05/20/23 13:26 Naloxone 0.4 Mg/Ml 1 Ml Vial IV Q2M PRN Opioid Reversal Nicotine 1 patch 05/20/23 20:00 05/20/23 20:04 Nicotine 14mg/24hr Patch TRANSDERM Not Given DAILY CHANDNI Oseltamivir Phosphate 75 mg 05/20/23 20:00 05/20/23 20:03 Oseltamivir 75 Mg Cap PO 05/25/23 20:01 75 mg Q12HR CHANDNI Administration Protocol Intake and Output 05/20/23 05/21/23 05/21/23 22:59 06:59 14:59 Other: Voiding Method Toilet # Voids 1 Weight 65.771 kg 05/21/23 07:36 05/21/23 07:36
[2023-05-21 08:51] LABS: Anisocytosis (M) Present; Eosinophils # (M) 0.25 k/uL (0-0.7); Lymphocytes # (M) 3.19 k/uL (1.0-4.8); Neutrophils # (M) 4.45 k/uL (1.3-7.7); Neutrophils % (M) 53 %; Nucleated Red Blood Cells 7 /100 WBC (0-0); Polychromasia Present; Sickle Cells Present; Target Cells Present; Total Cells Counted 100; WBC 8.4 k/uL (3.8-10.6)
[2023-05-21 08:52] LABS: Hypochromasia (M) Present
[2023-05-21] MEDS ORDERED: FOLIC ACID 1 MG TAB PO SCH (09:00)
--- NOTE | 2023-05-21 09:13 | P.PN ---
Subjective This is a pleasant 33 years old -Luxembourger male with past medical history of sickle cell disorder. He follows up with Dr. Alan. Also with community engagement coordinator at [facility]. Patient presents because of generalized body aches and pain including 8/10 in severity, achy and sharp pain. However patient denies specific chest pain or abdominal pain. No urinary complaint or dysuria. No headache dizziness, limb weakness or numbness. No blurred vision. patient feels generally weak Patient smokes 6 to 7 cigarettes/day and he was counseled to quit and he agrees to the nicotine patch Patient denies chest pain dyspnea coughing. No palpitation. Vitals are stable and patient afebrile Labs stable. Hemoglobin 8.2. Patient has unremarkable INR 1.0. Unremarkable BMP and urinalysis is negative. Influenza A is positive. Chest x-ray is negative for acute process EKG showing sinus rhythm at [address]-T changes. Patient admitted with telemetry monitoring on IV fluid normal saline 75 mL/h 04/23/2023 Patient today awake alert at baseline, he has same back pain but looks more tired and more malaise. Has been having pain all over his body including chest pain for the last 2 days with no recent worsening. No dyspnea no coughing. No respiratory symptoms and his oxygen saturating his well. Also is complaining from headache, Fioricet is added for him. Vitals look stable and he is afebrile Hemoglobin dropped today 8.2 down to 6.8 and platelet count down to 146 while WBC is not within the range. Patient reports no source of bleeding. No black stool or blood in the stool which is brown in color. No bleeding from anywhere else. No new urinary complaint. Her troponin is mildly elevated but stable. Sport Intern evaluated the patient and recommended outpatient workup. Remains on Tamiflu, normal saline 75 mL/h Because of his drop in hemoglobin, hematology/oncology team on the case who recommended to hold transfusion to review the case. We will do anemia workup including iron level, reticulocyte count, vitamin B12 and folate level. A blast crisis is suspected and we are going to check parvovirus 19. Review of systems CONSTITUTIONAL: No fever, no malaise, no fatigue. HEENT: No recent visual problems or hearing problems. Denied any sore throat. CARDIOVASCULAR: No orthopnea, PND, no palpitations, no syncope. PULMONARY: No shortness of breath, no cough, no hemoptysis. GASTROINTESTINAL: No diarrhea, no nausea, no vomiting, no abdominal pain. Normoactive bowel sounds. NEUROLOGICAL: No headaches, no weakness, no numbness. Active Medications Generic Name Dose Route Start Last Admin Trade Name Freq PRN Reason Stop Dose Admin Famotidine 20 mg 05/20/23 21:00 05/20/23 21:15 Famotidine 20 Mg/2 Ml Vial IV Not Given Q12HR [facility] Heparin Sodium (Porcine) 5,000 unit 05/20/23 21:00 05/20/23 21:15 Heparin Sodium,Porcine 5,000 Unit/Ml 1 Ml Vial SQ Not Given Q12HR CHANDNI Hydromorphone HCl 1 mg 05/20/23 13:26 05/21/23 04:41 Hydromorphone 1 Mg/Ml 1 Ml Syringe IVP 1 mg Q3HR PRN Administration Severe Pain (Scale 7 to 10) Sodium Chloride 1,000 mls @ 75 mls/hr 05/21/23 05:45 05/21/23 05:52 Saline 0.9% IV 75 mls/hr .[id number] CHANDNI Administration Naloxone HCl 0.2 mg 05/20/23 13:26 Naloxone 0.4 Mg/Ml 1 Ml Vial IV Q2M PRN Opioid Reversal Nicotine 1 patch 05/20/23 20:00 05/20/23 20:04 Nicotine 14mg/24hr Patch TRANSDERM Not Given DAILY CHANDNI Oseltamivir Phosphate 75 mg 05/20/23 20:00 05/20/23 20:03 Oseltamivir 75 Mg Cap PO 05/25/23 20:01 75 mg Q12HR CHANDNI Administration Protocol Objective - Vital Signs Vital signs: Vital Signs Temp 98.4 F 05/21/23 04:00 Pulse 89 05/21/23 04:00 Resp 18 05/21/23 04:00 BP 115/56 05/21/23 04:00 Pulse Ox 95 05/21/23 04:00 FiO2 Intake & Output 05/20/23 05/21/23 05/21/23 18:59 06:59 18:59 Weight 65.771 kg 65.771 kg Other: Voiding Method Toilet # Voids 1 - Exam -GENERAL: The patient is alert and oriented x3, not in any acute distress. Well developed, well nourished. Generally weak with malaise HEENT: Pupils are round and equally reacting to light. EOMI. No scleral icterus. No conjunctival pallor. Normocephalic, atraumatic. No pharyngeal erythema. No thyromegaly. CARDIOVASCULAR: S1 and S2 present. No murmurs, rubs, or gallops. PULMONARY: Chest is clear to auscultation, no wheezing , no crackles. ABDOMEN: Soft, nontender, nondistended, normoactive bowel sounds. No palpable organomegaly. MUSCULOSKELETAL: No joint swelling or deformity. EXTREMITIES: No cyanosis, clubbing, or pedal edema. NEUROLOGICAL: Gross neurological examination did not reveal any focal deficits. SKIN: No rashes. no petechiae. Transfer tech - Labs CBC & Chem 7: 05/21/23 07:36 05/21/23 07:36 Labs: Abnormal Lab Results - Last 24 Hours (Table) 05/20/23 05/20/23 05/20/23 Range/Units 11:39 11:39 12:15 RBC 2.00 L (4.30-5.90) m/uL Hgb 8.2 L (13.0-17.5) gm/dL Hct 23.1 L (39.0-53.0) % MCV 115.4 H (80.0-100.0) fL MCH 41.2 H (25.0-35.0) pg RDW 20.1 H (11.5-15.5) % Plt Count (150-450) k/uL Monocytes # (Manual) 1.05 H (0-1.0) k/uL Nucleated RBCs 4 H (0-0) /100 WBC Macrocytosis Marked A Retic Count 17.0 H (0.5-2.0) % Chloride 113 H (98-107) mmol/L Carbon Dioxide 20 L (22-30) mmol/L BUN 7 L (9-20) mg/dL Creatinine 0.56 L (0.66-1.25) mg/dL Total Bilirubin 2.4 H (0.2-1.3) mg/dL Alkaline Phosphatase 151 H (38-126) U/L Troponin I (0.000-0.034) ng/mL Urine Protein Trace H (Negative) Influenza Type A (PCR) (Not Detectd) 05/20/23 05/20/2305/19/24 Range/Units 12:15 12:15 20:36 RBC (4.30-5.90) m/uL Hgb (13.0-17.5) gm/dL Hct (39.0-53.0) % MCV (80.0-100.0) fL MCH (25.0-35.0) pg RDW (11.5-15.5) % Plt Count (150-450) k/uL Monocytes # (Manual) (0-1.0) k/uL Nucleated RBCs (0-0) /100 WBC Macrocytosis Retic Count (0.5-2.0) % Chloride (98-107) mmol/L Carbon Dioxide (22-30) mmol/L BUN (9-20) mg/dL Creatinine (0.66-1.25) mg/dL Total Bilirubin (0.2-1.3) mg/dL Alkaline Phosphatase (38-126) U/L Troponin I 0.045 H* 0.053 H* (0.000-0.034) ng/mL Urine Protein (Negative) Influenza Type A (PCR) Detected A (Not Detectd) 05/20/23 05/21/23 05/21/23 Range/Units 22:56 07:36 07:36 RBC 1.65 L (4.30-5.90) m/uL Hgb 6.8 L* (13.0-17.5) gm/dL Hct 19.2 L* (39.0-53.0) % MCV 116.7 H (80.0-100.0) fL MCH 41.0 H (25.0-35.0) pg RDW 20.8 H (11.5-15.5) % Plt Count 146 L (150-450) k/uL Monocytes # (Manual) (0-1.0) k/uL Nucleated RBCs 7 H (0-0) /100 WBC Macrocytosis Marked A Retic Count (0.5-2.0) % Chloride 113 H (98-107) mmol/L Carbon Dioxide (22-30) mmol/L BUN 6 L (9-20) mg/dL Creatinine 0.57 L (0.66-1.25) mg/dL Total Bilirubin (0.2-1.3) mg/dL Alkaline Phosphatase (38-126) U/L Troponin I 0.043 H* (0.000-0.034) ng/mL Urine Protein (Negative) Influenza Type A (PCR) (Not Detectd) Assessment and Plan Assessment: Sickle cell disease with possible sickle cell crisis, including pain crisis Acute Elevated troponin. Viral myocarditis is suspected Worsening anemia and thrombocytopenia suspicious for aplastic crisis Nicotine dependence Generalized weakness secondary to above. Plan: Start patient on Tamiflu Continue with normal saline 75 mL/h Pain medication and currently on Dilaudid. cardiology consult check echocardiogram hand ii blocker recommended further workup as an outpatient Check for parvovirus infection and anemia workup. On follow-up with hematology/oncology consult Nicotine patch. Labs and medication were reviewed.. Continue same treatment. Continue with symptomatic treatment. Resume home medication. Monitor labs and vitals. DVT and GI prophylaxis. Further recommendations as per clinical course of the patient DVT prophylaxis: Subcutaneous heparin GI Prophylaxis: Pepcid Prognosis is guarded
[2023-05-21] MEDS ORDERED: ONDANSETRON 4 MG/2 ML VIAL IVP PRN (09:32)
[2023-05-21] MEDS: ACETAMINOPHEN TAB 325 MG TAB PO PRN (09:36)
[2023-05-21 11:38] LABS: Reticulocyte % 20.3 % (0.5-2.0)
[2023-05-21 11:57] LABS: Bilirubin, Delta 0.6 mg/dL (0.0-0.2); Bilirubin,Unconjugated 2.5 mg/dL (0.0-1.1); Total Bilirubin 3.1 mg/dL (0.2-1.3)
[2023-05-21 13:45] LABS: % Iron Saturation 43.42 (15.00-50.00)
--- NOTE | 2023-05-21 14:15 | P.CONS ---
History of Present Illness - Reason for Consult Consult date: 05/21/23 Sickle cell anemia - Chief Complaint Diffuse pain - History of Present Illness Mr. Kemp is a 33-year-old gentleman with a past medical history significant for hemoglobin SS sickle cell disease who presents with diffuse pain. About 5 to 7 days ago, he noted having upper sinus congestion with no fevers, chills, sore throat, cough, or dyspnea. He eventually began having mild myalgias. 2 days prior to presentation, he began developing significant pain in the sternum as well as in the extremities similar to prior sickle cell pain episodes. He does have Percocet at home, which he takes only when there is acute pain, which did not relieve his pain. He had been taking Hydrea 1000 mg daily without complications. This prompted him to present to the [facility] ED for additional management. On presentation, vital signs were stable. Hemoglobin was at 8.2 with total bilirubin 2.4. Urinalysis revealed no evidence of infection. Viral panel was positive for influenza A. Troponin was initially elevated at 0.045 with 2 additional troponins repeated being stable. Chest x-ray revealed no acute cardiopulmonary process. He was started on Tamiflu for treatment of influenza A along with normal saline at 75 cc an hour and IV Dilaudid and was admitted to internal medicine for additional management. Currently, Dilaudid 1 mg IV every 3 hours as needed is providing relief. Review of Systems 14 point review of systems was conducted with pertinent positives and negatives as noted per HPI Past Medical History Past Medical History: Blood Disorder Additional Past Medical History / Comment(s): sickle cell History of Any Multi-Drug Resistant Organisms: None Reported Past Surgical History: Cholecystectomy Additional Past Surgical History / Comment(s): 2011 cholecystectomy Past Anesthesia/Blood Transfusion Reactions: No Reported Reaction Past Psychological History: No Psychological Hx Reported Smoking Status: Current every day smoker Past Alcohol Use History: None Reported Past Drug Use History: None Reported Medications and Allergies Home Medications Medication Instructions Recorded Confirmed Type Folic Acid 1 mg PO DAILY 05/20/23 05/20/23 History Hydroxyurea [Hydrea] 1,000 mg PO DAILY 05/20/23 05/20/23 History Naloxone HCl [Narcan] 4 mg NASAL DIRECTED PRN 05/20/23 05/20/23 History oxyCODONE-APAP 5-325MG [Percocet 1 tab PO Q6H PRN 05/20/23 05/20/23 History 5-325 mg] Allergies Allergy/AdvReac Type Severity Reaction Status Date / Time cefazolin Allergy Rash/Hives Verified 05/20/23 13:40 Physical Exam Vitals: Vital Signs Temp Pulse Pulse Resp BP BP Pulse Ox 05/21/23 09:39 97.2 F L 80 16 127/66 98 05/21/23 04:00 98.4 F 89 18 115/56 95 05/21/23 02:00 85 16 05/20/23 22:05 98.1 F 85 16 147/72 100 05/20/23 21:10 98.4 F 78 16 153/88 98 05/20/23 19:00 69 18 152/88 97 05/20/23 18:07 75 16 137/76 96 05/20/23 16:00 76 18 131/71 95 Intake and Output 05/20/23 05/21/23 05/21/23 22:59 06:59 14:59 Intake Total 118 Balance 118 Intake: Oral 118 Other: Voiding Method Toilet Toilet # Voids 1 Weight 65.771 kg - Constitutional General appearance: average body habitus, cooperative, no acute distress - EENT Eyes: EOMI - Respiratory Respiratory: bilateral: CTA - Cardiovascular Flow murmur Rhythm: regular - Gastrointestinal General gastrointestinal: no distended, soft, no tenderness - Integumentary Integumentary: no rash - Neurologic Neurologic: CNII-XII intact - Psychiatric Psychiatric: A&O x's 3, appropriate affect, intact judgment & insight Results CBC & Chem 7: 05/21/23 07:36 05/21/23 07:36 Labs: Abnormal Lab Results - Last 24 Hours (Table) 05/20/23 05/20/23 05/21/23 Range/Units 20:36 22:56 07:36 RBC 1.65 L (4.30-5.90) m/uL Hgb 6.8 L* (13.0-17.5) gm/dL Hct 19.2 L* (39.0-53.0) % MCV 116.7 H (80.0-100.0) fL MCH 41.0 H (25.0-35.0) pg RDW 20.8 H (11.5-15.5) % Plt Count 146 L (150-450) k/uL Nucleated RBCs 7 H (0-0) /100 WBC Macrocytosis Marked A Retic Count (0.5-2.0) % Chloride (98-107) mmol/L BUN (9-20) mg/dL Creatinine (0.66-1.25) mg/dL Transferrin (204.0-354.0) mg/dL Total Bilirubin (0.2-1.3) mg/dL Unconjugated Bilirubin (0.0-1.1) mg/dL Delta Bilirubin (0.0-0.2) mg/dL Lactate Dehydrogenase (120-246) U/L Troponin I 0.053 H* 0.043 H* (0.000-0.034) ng/mL 05/21/23 05/21/23 05/21/23 Range/Units 07:36 07:36 10:19 RBC (4.30-5.90) m/uL Hgb (13.0-17.5) gm/dL Hct (39.0-53.0) % MCV (80.0-100.0) fL MCH (25.0-35.0) pg RDW (11.5-15.5) % Plt Count (150-450) k/uL Nucleated RBCs (0-0) /100 WBC Macrocytosis Retic Count 20.3 H (0.5-2.0) % Chloride 113 H (98-107) mmol/L BUN 6 L (9-20) mg/dL Creatinine 0.57 L (0.66-1.25) mg/dL Transferrin (204.0-354.0) mg/dL Total Bilirubin 3.1 H (0.2-1.3) mg/dL Unconjugated Bilirubin 2.5 H (0.0-1.1) mg/dL Delta Bilirubin 0.6 H (0.0-0.2) mg/dL Lactate Dehydrogenase 444 H (120-246) U/L Troponin I (0.000-0.034) ng/mL 05/21/23 Range/Units 10:19 RBC (4.30-5.90) m/uL Hgb (13.0-17.5) gm/dL Hct (39.0-53.0) % MCV (80.0-100.0) fL MCH (25.0-35.0) pg RDW (11.5-15.5) % Plt Count (150-450) k/uL Nucleated RBCs (0-0) /100 WBC Macrocytosis Retic Count (0.5-2.0) % Chloride (98-107) mmol/L BUN (9-20) mg/dL Creatinine (0.66-1.25) mg/dL Transferrin 163.0 L (204.0-354.0) mg/dL Total Bilirubin (0.2-1.3) mg/dL Unconjugated Bilirubin (0.0-1.1) mg/dL Delta Bilirubin (0.0-0.2) mg/dL Lactate Dehydrogenase (120-246) U/L Troponin I (0.000-0.034) ng/mL Assessment and Plan (1) Influenza A Current Visit: Yes Status: Acute Code(s): J10.1 - FLU DUE TO OTH IDENT INFLUENZA VIRUS W OTH RESP MANIFEST SNOMED Code(s): 691050431 (2) Sickle cell anemia with crisis Current Visit: Yes Status: Acute Priority: High Code(s): D57.00 - HB-SS DISEASE WITH CRISIS, UNSPECIFIED SNOMED Code(s): 506501422 Plan: #Sickle cell pain episode -Presented with progressive pain in the sternum along with the extremities consistent with prior pain episodes -He had been on hydroxyurea 1000 mg daily with no hospitalizations since May 2022 -Prior to presentation, there was sinus congestion along with myalgias prior to sickle cell pain -Workup on admission was significant for influenza A -His current pain episode is secondary to influenza A -Continue Dilaudid 1 mg IV every 3 hours as needed as this is controlling his pain -Increase normal saline to 125 mg/h from 75 mg/h to provide more aggressive hydration as treatment for sickle cell pain crisis -Given he is not hypoxic and there is no concern for acute chest syndrome, hold on blood transfusion at this time -Hemolysis labs ordered to assess for the presence of hyper hemolysis, which appears less likely. These can be trended daily while inpatient #Hemoglobin SS sickle cell disease -Previous complications include acute pain episodes, cholecystitis requiring cholecystectomy in 2010, and acute chest syndrome in 2014 -Last seen in clinic on 09/16/2022, where Hydrea was increased to 500 mg twice daily -He is currently on Hydrea 1000 mg daily prior to admission -Hydrea will not help alleviate his current pain episode and does not need to be started inpatient #Influenza A -Continue Tamiflu per primary team Da Alan MD
[2023-05-21] MEDS: FAMOTIDINE 20 MG TAB PO SCH (20:05)
--- NOTE | 2023-05-22 09:07 | P.PN ---
Subjective Progress Note Date: 05/22/23 Principal diagnosis: Abnormal cardiac enzyme The patient is a 33-year-old -Irish gentleman with a past medical history significant for sickle cell disease the patient sees a lead technologist in cytogenetics/oncologist on regular basis and also history of chronic pain. He presented to the hospital complaining of generalized pain including pain in the chest. No shortness of breath and no dizziness or lightheadedness and no feeling of heart racing or fluttering and no presyncope or syncope and no fever or chills or cough or sputum production. He was tested positive for flu. Also he underwent a workup including hemoglobin and that came in to be 6.8. He did not receive a blood as of yet. Beside that he underwent a blood work showed abnormal troponin which appeared to be flat across the board. No history of coronary artery disease or congestive heart failure or cardiac arrhythmia and he does not follow-up with any spool tender before. Currently his chest pain-free. He is slightly lethargic. The EKG showed sinus mechanism with nonspecific ST and T wave abnormalities but no ischemic changes noted overall. The physical examination is remarkable for regular rhythm with a systolic murmur at the right and left upper sternal border with diminished breathing sounds bilaterally and no edema was noted. Please note that also the patient underwent a chest x-ray and that showed no acute abnormalities. May 22, 2023 The patient was seen and evaluated this morning. He is overall better. He is not as lethargic as yesterday. The generalized pain has improved as well. We felt that the troponin is elevated because of severe anemia. An echo was ordered for risk stratification but still pending. Vitals are stable. The blood work overall is unremarkable beside of course of the low hemoglobin which is below 7 but the hematology team recommended no blood transfusion as of now. The examination is remarkable for regular rhythm with a systolic murmur at the right upper sternal border with diminished breathing sounds bilaterally and no edema was noted. Assessment Sickle cell disease Anemia secondary to sickle cell crisis Generalized pain including chest pain Plan The pain is likely secondary to severe anemia The evidence of myocardial injury with elevated troponin is secondary to mismatch Meanwhile obtain an echocardiogram. Other Follow-up with the patient Objective - Vital Signs Vital signs: Vital Signs Temp 97.9 F 05/22/23 04:00 Pulse 80 05/22/23 04:00 Resp 16 05/22/23 04:00 BP 126/59 05/22/23 04:00 Pulse Ox 94 L 05/22/23 04:00 FiO2 Intake & Output 05/21/23 05/22/23 05/22/23 18:59 06:59 18:59 Intake Total 2198 Balance 2198 Intake: Intake, IV Titration 1500 Amount Sodium Chloride 0.9% 1, 1500 000 ml @ 125 mls/hr IV . Q8H CHANDNI Rx#:[id number] Oral 698 Other: Voiding Method Toilet Toilet # Voids 2 - Labs CBC & Chem 7: 05/21/23 07:36 05/21/23 07:36 Labs: Abnormal Lab Results - Last 24 Hours (Table) 05/21/23 05/21/23 05/21/23 Range/Units 07:36 10:19 10:19 Retic Count 20.3 H (0.5-2.0) % Transferrin 163.0 L (204.0-354.0) mg/dL Total Bilirubin 3.1 H (0.2-1.3) mg/dL Unconjugated Bilirubin 2.5 H (0.0-1.1) mg/dL Delta Bilirubin 0.6 H (0.0-0.2) mg/dL Lactate Dehydrogenase 444 H (120-246) U/L
[2023-05-22 10:09] LABS: Anisocytosis Moderate; HCT 20.4 % (39.0-53.0); HGB 7.2 gm/dL (13.0-17.5); Hyperchromasia Slight; Hypochromasia Slight; MCH 41.8 pg (25.0-35.0); MCHC 35.3 g/dL (31.0-37.0); MCV 118.6 fL (80.0-100.0); Macrocytosis Marked; Mean Platelet Volume 9.6; Platelet Count 160 k/uL (150-450); Poikilocytosis Marked; RBC 1.72 m/uL (4.30-5.90)
[2023-05-22 10:18] LABS: African American GFR (CKD) >90 (>60 ml/min/1.73 sqM); Anion Gap 5 mmol/L; Blood Urea Nitrogen 4 mg/dL (9-20); Calcium 8.8 mg/dL (8.4-10.2); Carbon Dioxide 20 mmol/L (22-30); Chloride 113 mmol/L (98-107); Glucose 105 mg/dL (74-99); LDH 453 U/L (120-246); Non-African American GFR(CKD) >90 (>60 ml/min/1.73 sqM); Potassium 4.1 mmol/L (3.5-5.1); Sodium 138 mmol/L (137-145)
[2023-05-22 10:48] LABS: Anisocytosis (M) Present; Eosinophils # (M) 0.08 k/uL (0-0.7); Hypochromasia (M) Present; Lymphocytes # (M) 2.89 k/uL (1.0-4.8); Monocytes # (M) 0.62 k/uL (0-1.0); Neutrophils # (M) 4.21 k/uL (1.3-7.7); Neutrophils % (M) 54 %; Nucleated Red Blood Cells 10 /100 WBC (0-0); Sickle Cells Present; Target Cells Present; Total Cells Counted 100; WBC 7.8 k/uL (3.8-10.6)
[2023-05-22 10:49] LABS: Polychromasia Present
--- NOTE | 2023-05-22 15:23 | P.PN ---
Subjective This is a pleasant 33 years old -[place] male with past medical history of sickle cell disorder. He follows up with Dr. Alan. 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 Patient presents because of generalized body aches and pain including 8/10 in severity, achy and sharp pain. However patient denies specific chest pain or abdominal pain. No urinary complaint or dysuria. No headache dizziness, limb weakness or numbness. No blurred vision. patient feels generally weak Patient smokes 6 to 7 cigarettes/day and he was counseled to quit and he agrees to the nicotine patch Patient denies chest pain dyspnea coughing. No palpitation. Vitals are stable and patient afebrile Labs stable. Hemoglobin 8.2. Patient has unremarkable INR 1.0. Unremarkable BMP and urinalysis is negative. Influenza A is positive. Chest x-ray is negative for acute process EKG showing sinus rhythm at [address]-T changes. Patient admitted with telemetry monitoring on IV fluid normal saline 75 mL/h 04/23/2023 Patient today awake alert at baseline, he has same back pain but looks more tired and more malaise. Has been having pain all over his body including chest pain for the last 2 days with no recent worsening. No dyspnea no coughing. No respiratory symptoms and his oxygen saturating his well. Also is complaining from headache, Fioricet is added for him. Vitals look stable and he is afebrile Hemoglobin dropped today 8.2 down to 6.8 and platelet count down to 146 while WBC is not within the range. Patient reports no source of bleeding. No black stool or blood in the stool which is brown in color. No bleeding from anywhere else. No new urinary complaint. Her troponin is mildly elevated but stable. Slate Roofer evaluated the patient and recommended outpatient workup. Remains on Tamiflu, normal saline 75 mL/h Because of his drop in hemoglobin, hematology/oncology team on the case who recommended to hold transfusion to review the case. We will do anemia workup including iron level, reticulocyte count, vitamin B12 and folate level. A blast crisis is suspected and we are going to check parvovirus 19. 05/22/2023 Patient awake alert Still complaining from back pain No other new complaints, no respiratory symptoms or hypoxia Continues on Tamiflu Hemoglobin improved 7.2 without blood transfusion platelet count normal at 160 Workup showing evidence of hemolysis with low haptoglobin-directly Balwinder, reticulocyte count and LDH No chest pain and suspicion for myocarditis is low, slightly elevated troponin secondary to demand/supply mismatch, however echocardiogram is still pending Remains on normal saline 125 mL/h and Tamiflu Objective - Vital Signs Vital signs: Vital Signs Temp 98.0 F 05/22/23 11:22 Pulse 86 05/22/23 11:22 Resp 16 05/22/23 11:22 BP 129/70 05/22/23 11:22 Pulse Ox 100 05/22/23 11:22 FiO2 Intake & Output 05/21/23 05/22/23 05/22/23 18:59 06:59 18:59 Intake Total 2198 1500 Balance 2198 1500 Intake: Intake, IV Titration 1500 1500 Amount Sodium Chloride 0.9% 1, 1500 1500 000 ml @ 125 mls/hr IV . Q8H [facility] Rx#:[id number] Oral 698 Other: Voiding Method Toilet Toilet Toilet # Voids 2 - Exam -GENERAL: The patient is alert and oriented x3, not in any acute distress. Well developed, well nourished. Generally weak with malaise HEENT: Pupils are round and equally reacting to light. EOMI. No scleral icterus. No conjunctival pallor. Normocephalic, atraumatic. No pharyngeal erythema. No t hyromegaly. CARDIOVASCULAR: S1 and S2 present. No murmurs, rubs, or gallops. PULMONARY: Chest is clear to auscultation, no wheezing , no crackles. ABDOMEN: Soft, nontender, nondistended, normoactive bowel sounds. No palpable organomegaly. MUSCULOSKELETAL: No joint swelling or deformity. EXTREMITIES: No cyanosis, clubbing, or pedal edema. NEUROLOGICAL: Gross neurological examination did not reveal any focal deficits. SKIN: No rashes. no petechiae. Transfer tech - Labs CBC & Chem 7: 05/22/23 09:00 05/22/23 09:00 Labs: Abnormal Lab Results - Last 24 Hours (Table) 05/21/23 05/21/23 05/22/23 Range/Units 07:36 10:19 09:00 RBC 1.72 L (4.30-5.90) m/uL Hgb 7.2 L (13.0-17.5) gm/dL Hct 20.4 L (39.0-53.0) % MCV 118.6 H (80.0-100.0) fL MCH 41.8 H (25.0-35.0) pg RDW 21.0 H (11.5-15.5) % Nucleated RBCs 10 H (0-0) /100 WBC Macrocytosis Marked A Retic Count 19.0 H (0.5-2.0) % Chloride (98-107) mmol/L Carbon Dioxide (22-30) mmol/L BUN (9-20) mg/dL Creatinine (0.66-1.25) mg/dL Glucose (74-99) mg/dL Transferrin 163.0 L (204.0-354.0) mg/dL Total Bilirubin 3.1 H (0.2-1.3) mg/dL Unconjugated Bilirubin 2.5 H (0.0-1.1) mg/dL Delta Bilirubin 0.6 H (0.0-0.2) mg/dL Lactate Dehydrogenase 444 H (120-246) U/L 05/22/23 Range/Units 09:00 RBC (4.30-5.90) m/uL Hgb (13.0-17.5) gm/dL Hct (39.0-53.0) % MCV (80.0-100.0) fL MCH (25.0-35.0) pg RDW (11.5-15.5) % Nucleated RBCs (0-0) /100 WBC Macrocytosis Retic Count (0.5-2.0) % Chloride 113 H (98-107) mmol/L Carbon Dioxide 20 L (22-30) mmol/L BUN 4 L (9-20) mg/dL Creatinine 0.54 L (0.66-1.25) mg/dL Glucose 105 H (74-99) mg/dL Transferrin (204.0-354.0) mg/dL Total Bilirubin (0.2-1.3) mg/dL Unconjugated Bilirubin (0.0-1.1) mg/dL Delta Bilirubin (0.0-0.2) mg/dL Lactate Dehydrogenase 453 H (120-246) U/L Assessment and Plan Assessment: Sickle cell disease with possible sickle cell crisis, including pain crisis Acute Elevated troponin. Viral myocarditis is felt less likely. Mostly patient has demand/supply mismatch Worsening anemia and thrombocytopenia suspicious for hemolytic anemia. While aplastic crisis felt less likely Nicotine dependence Generalized weakness secondary to above. Plan: Start patient on Tamiflu Continue with normal saline 125 mL/h Pain medication and currently on Dilaudid. cardiology consult check echocardiogram casing inspector recommended further workup as an outpatient Check for parvovirus infection and anemia workup. On follow-up with hematology/oncology consult Nicotine patch. Labs and medication were reviewed.. Continue same treatment. Continue with symptomatic treatment. Resume home medication. Monitor labs and vitals. DVT and GI prophylaxis. Further recommendations as per clinical course of the patient DVT prophylaxis: Subcutaneous heparin GI Prophylaxis: Pepcid Prognosis is guarded
--- NOTE | 2023-05-22 19:48 | CA ---
Transthoracic Echo Report Name: Ron Kemp Age: 33 Gender: M : 1990 Exam Date: 05/22/2023 09:48 Exam Location: [facility] Ht (in): 69 Wt (lb): 145 Ordering Physician: Nando Skinner MD Attending/Referring Phys: Operations Forester ML Procedure CPT: Indications: Rule out heart disease Cardiac Hx: Technical Quality: Contrast 1: Total Dose (mL): Contrast 2: Total Dose (mL): MEASUREMENTS (Male / Female) Normal Values 2D ECHO LV Diastolic Diameter PLAX 5.9 cm 4.2 - 5.9 / 3.9 - 5.3 cm LV Systolic Diameter PLAX 3.8 cm IVS Diastolic Thickness 0.7 cm 0.6 - 1.0 / 0.6 - 0.9 cm LVPW Diastolic Thickness 1.1 cm 0.6 - 1.0 / 0.6 - 0.9 cm LV Relative Wall Thickness 0.3 LVOT Diameter 2.8 cm Aortic Root Diameter 3.7 cm LA Systolic Diameter LX 4.9 cm 3.0 - 4.0 / 2.7 - 3.8 cm LV Diastolic Volume MOD BP 169.3 cm??? 67 - 155 / 56 - 104 cm??? LV Systolic Volume MOD BP 63.8 cm??? 22 - 58 / 19 - 49 cm??? LV Ejection Fraction MOD BP 62.3 % >= 55 % LV Cardiac Index MOD BP 4606.6 cm???/min???m??? LV Diastolic Volume MOD 4C 204.5 cm??? LV Systolic Volume MOD 4C 56.9 cm??? LV Ejection Fraction MOD 4C 72.2 % LV Cardiac Index MOD 4C 6443.3 cm???/min???m??? LV Diastolic Length 4C 8.3 cm LV Systolic Length 4C 5.7 cm LV Diastolic Volume MOD 2C 125.3 cm??? LV Systolic Volume MOD 2C 56.2 cm??? LV Ejection Fraction MOD 2C 55.1 % LV Cardiac Index MOD 2C 3015.6 cm???/min???m??? LV Diastolic Length 2C 9.4 cm LV Systolic Length 2C 7.3 cm DOPPLER AV Peak Velocity 173.1 cm/s AV Peak Gradient 12.0 mmHg AV Mean Velocity 130.0 cm/s AV Mean Gradient 7.2 mmHg AV Velocity Time Integral 32.4 cm LVOT Peak Velocity 69.7 cm/s LVOT Peak Gradient 1.9 mmHg LVOT Velocity Time Integral 28.0 cm LVOT Stroke Volume 166.4 cm??? LVOT Stroke Volume Index 92.4 ml/m??? LVOT Cardiac Index 7264.8 cm???/min???m??? AV Area Cont Eq vti 5.1 cm??? AV Area Cont Eq pk 2.4 cm??? MR Peak Velocity 428.9 cm/s MR Peak Gradient 73.6 mmHg Mitral E Point Velocity 126.1 cm/s Mitral A Point Velocity 78.1 cm/s Mitral E to A Ratio 1.6 MV Deceleration Time 230.9 ms MV E' Velocity 13.0 cm/s Mitral E to MV E' Ratio 9.7 TR Peak Velocity 239.7 cm/s TR Peak Gradient 23.0 mmHg PV Peak Velocity 125.5 cm/s PV Peak Gradient 6.3 mmHg FINDINGS Left Ventricle Mildly increased left ventricular diastolic volume. Mildly increased left ventricular systolic volume. Left ventricular ejection fraction is estimated at 50-55% Right Ventricle Normal right ventricular size. Right Atrium Normal right atrial size. Left Atrium Moderately increased left atrial diameter. Mitral Valve Mild to moderate mitral regurgitation. Aortic Valve Trileaflet aortic valve. Tricuspid Valve Trace to mild tricuspid regurgitation. Pulmonic Valve No pulmonic regurgitation. Pericardium No pericardial effusion. Aorta Normal size aortic root. CONCLUSIONS Normal LV systolic function. [id number] mitral regurgitation Previewed by: Dr. Lei Graves MD (Electronically Signed) Final Date: 22 May 2023 19:47
[2023-05-23 08:44] LABS: Anisocytosis Moderate; Hypochromasia Slight; MCHC 34.4 g/dL (31.0-37.0); MCV 119.2 fL (80.0-100.0); Macrocytosis Marked; Mean Platelet Volume 9.9; Platelet Count 149 k/uL (150-450); Poikilocytosis Marked; RDW 21.2 % (11.5-15.5)
[2023-05-23 08:47] LABS: HGB 6.6 gm/dL (13.0-17.5)
[2023-05-23 08:48] LABS: HCT 19.1 % (39.0-53.0)
[2023-05-23 09:15] LABS: African American GFR (CKD) >90 (>60 ml/min/1.73 sqM); Anion Gap 4 mmol/L; Blood Urea Nitrogen 5 mg/dL (9-20); Calcium 8.9 mg/dL (8.4-10.2); Carbon Dioxide 23 mmol/L (22-30); Chloride 113 mmol/L (98-107); Glucose 95 mg/dL (74-99); LDH 488 U/L (120-246); Non-African American GFR(CKD) >90 (>60 ml/min/1.73 sqM); Sodium 140 mmol/L (137-145)
[2023-05-23 11:19] LABS: Basophils # (M) 0.07 k/uL (0-0.2); Eosinophils # (M) 0.13 k/uL (0-0.7); Lymphocytes # (M) 2.86 k/uL (1.0-4.8); Monocytes # (M) 0.85 k/uL (0-1.0); Neutrophils # (M) 2.73 k/uL (1.3-7.7); Neutrophils % (M) 42 %; Nucleated Red Blood Cells 4 /100 WBC (0-0); Polychromasia Present; Total Cells Counted 200; WBC 6.5 k/uL (3.8-10.6)
[2023-05-23 11:20] LABS: Sickle Cells Present; Target Cells Present
[2023-05-23] MEDS: FOLIC ACID 1 MG TAB PO SCH (12:02)
--- NOTE | 2023-05-23 13:52 | P.PN ---
Subjective HISTORY OF PRESENT ILLNESS: The patient is a 33-year-old -[place] gentleman with a past medical history significant for sickle cell disease the patient sees a assistant foreman/oncologist on regular basis and also history of chronic pain. He presented to the hospital complaining of generalized pain including pain in the chest. No shortness of breath and no dizziness or lightheadedness and no feeling of heart racing or fluttering and no presyncope or syncope and no fever or chills or cough or sputum production. He was tested positive for flu. Also he underwent a workup including hemoglobin and that came in to be 6.8. He did not receive a blood as of yet. Beside that he underwent a blood work showed abnormal troponin which appeared to be flat across the board. No history of coronary artery disease or congestive heart failure or cardiac arrhythmia and he does not follow-up with any neonatal specialist before. Currently his chest pain-free. He is slightly lethargic. The EKG showed sinus mechanism with nonspecific ST and T wave abnormalities but no ischemic changes noted overall. The physical examination is remarkable for regular rhythm with a systolic murmur at the right and left upper sternal border with diminished breathing sounds bilaterally and no edema was noted. Please note that also the patient underwent a chest x-ray and that showed no acute abnormalities. May 22, 2023 The patient was seen and evaluated this morning. He is overall better. He is not as lethargic as yesterday. The generalized pain has improved as well. We felt that the troponin is elevated because of severe anemia. An echo was ordered for risk stratification but still pending. Vitals are stable. The blood work overall is unremarkable beside of course of the low hemoglobin which is below 7 but the hematology team recommended no blood transfusion as of now. The examination is remarkable for regular rhythm with a systolic murmur at the right upper sternal border with diminished breathing sounds bilaterally and no edema was noted. 05/23/2023 Patient examined this morning at the bedside. Patient reports generalized pain. He does report chest pain that is worse with deep inspiration. He denies shortness of breath. Hemoglobin this morning is 6.6. Echocardiogram completed revealing ejection fraction 50 to 55%, trace to mild TR, mild to moderate MR PHYSICAL EXAM: VITAL SIGNS: Reviewed. GENERAL: Well-developed in no acute distress. NECK: Supple. No JVD or thyromegaly LUNGS: Respirations even and unlabored. Lungs essentially clear to auscultation bilaterally. HEART: Regular rate and rhythm. S1 and S2 heard. EXTREMITIES: Normal range of motion. No clubbing or cyanosis. Peripheral pulses intact. No lower extremity edema ASSESSMENT: Chest pain, ACS ruled out Sickle cell crisis Anemia, secondary to above Acute influenza A PLAN: 2D echo ordered and reviewed No further inpatient recommendations from a cardiac standpoint We will sign off. Please reconsult if needed. Nurse practitioner note has been reviewed by physician. Signing provider agrees with the documented findings, assessment, and plan of care documented by SHOE REPAIRMAN as a scribe. Objective - Vital Signs Vital signs: Vital Signs Temp 98.1 F 05/23/23 13:43 Pulse 78 05/23/23 13:43 Resp 16 05/23/23 13:43 BP 124/60 05/23/23 13:43 Pulse Ox 95 05/23/23 13:43 FiO2 Intake & Output 05/22/23 05/23/23 05/23/23 18:59 06:59 18:59 Intake Total 1840 720 Balance 1840 720 Intake: Intake, IV Titration 1500 Amount Sodium Chloride 0.9% 1, 1500 000 ml @ 125 mls/hr IV . Q8H [facility] Rx#:[id number] Oral 340 720 Blood Product 0 Unit 0 Other: Voiding Method Toilet Toilet Toilet # Voids 2 - Labs CBC & Chem 7: 05/23/23 07:09 05/23/23 07:09 Labs: Abnormal Lab Results - Last 24 Hours (Table) 05/23/23 05/23/23 05/23/23 Range/Units 07:09 07:09 07:09 RBC 1.60 L (4.30-5.90) m/uL Hgb 6.6 L* (13.0-17.5) gm/dL Hct 19.1 L* (39.0-53.0) % MCV 119.2 H (80.0-100.0) fL MCH 41.0 H (25.0-35.0) pg RDW 21.2 H (11.5-15.5) % Plt Count 149 L (150-450) k/uL Nucleated RBCs 4 H (0-0) /100 WBC Macrocytosis Marked A Retic Count 20.0 H (0.5-2.0) % Haptoglobin <10.0 L (31.2-198.0) mg/dL Chloride 113 H (98-107) mmol/L BUN 5 L (9-20) mg/dL Creatinine 0.56 L (0.66-1.25) mg/dL Lactate Dehydrogenase 488 H (120-246) U/L Crossmatch 05/23/23 Range/Units 10:55 RBC (4.30-5.90) m/uL Hgb (13.0-17.5) gm/dL Hct (39.0-53.0) % MCV (80.0-100.0) fL MCH (25.0-35.0) pg RDW (11.5-15.5) % Plt Count (150-450) k/uL Nucleated RBCs (0-0) /100 WBC Macrocytosis Retic Count (0.5-2.0) % Haptoglobin (31.2-198.0) mg/dL Chloride (98-107) mmol/L BUN (9-20) mg/dL Creatinine (0.66-1.25) mg/dL Lactate Dehydrogenase (120-246) U/L Crossmatch See Detail
--- NOTE | 2023-05-23 16:09 | P.PN ---
Subjective Progress Note Date: 05/23/23 In follow-up today patient is reporting improvement in pain. Denies shortness of breath. SPO2 96% on room air. Pt afebrile. Hemoglobin noted at 6.6 today. 1 unit PRBCs have been ordered. Objective - Vital Signs Vital signs: Vital Signs Temp 98.2 F 05/23/23 14:13 Pulse 76 05/23/23 14:13 Resp 16 05/23/23 14:13 BP 118/65 05/23/23 14:13 Pulse Ox 96 05/23/23 14:13 FiO2 Intake & Output 05/22/23 05/23/23 05/23/23 18:59 06:59 18:59 Intake Total 1840 720 Balance 1840 720 Intake: Intake, IV Titration 1500 Amount Sodium Chloride 0.9% 1, 1500 000 ml @ 125 mls/hr IV . Q8H [facility] Rx#:[id number] Oral 340 720 Blood Product 0 Unit 0 Other: Voiding Method Toilet Toilet Toilet # Voids 2 - Constitutional General appearance: Present: no acute distress - EENT Eyes: Present: anicteric sclerae, EOMI ENT: Present: hearing grossly normal - Respiratory Details: breathing even and unlabored - Cardiovascular Details: skin warm and dry - Integumentary Integumentary: Absent: cyanotic - Neurologic Neurologic Comment(s): grossly intact - Musculoskeletal Musculoskeletal: Present: strength equal bilaterally - Psychiatric Psychiatric: Present: A&O x's 3 - Labs CBC & Chem 7: 05/23/23 07:09 05/23/23 07:09 Labs: Abnormal Lab Results - Last 24 Hours (Table) 05/23/23 05/23/23 05/23/23 Range/Units 07:09 07:09 07:09 RBC 1.60 L (4.30-5.90) m/uL Hgb 6.6 L* (13.0-17.5) gm/dL Hct 19.1 L* (39.0-53.0) % MCV 119.2 H (80.0-100.0) fL MCH 41.0 H (25.0-35.0) pg RDW 21.2 H (11.5-15.5) % Plt Count 149 L (150-450) k/uL Nucleated RBCs 4 H (0-0) /100 WBC Macrocytosis Marked A Retic Count 20.0 H (0.5-2.0) % Haptoglobin <10.0 L (31.2-198.0) mg/dL Chloride 113 H (98-107) mmol/L BUN 5 L (9-20) mg/dL Creatinine 0.56 L (0.66-1.25) mg/dL Lactate Dehydrogenase 488 H (120-246) U/L Crossmatch 05/23/23 Range/Units 10:55 RBC (4.30-5.90) m/uL Hgb (13.0-17.5) gm/dL Hct (39.0-53.0) % MCV (80.0-100.0) fL MCH (25.0-35.0) pg RDW (11.5-15.5) % Plt Count (150-450) k/uL Nucleated RBCs (0-0) /100 WBC Macrocytosis Retic Count (0.5-2.0) % Haptoglobin (31.2-198.0) mg/dL Chloride (98-107) mmol/L BUN (9-20) mg/dL Creatinine (0.66-1.25) mg/dL Lactate Dehydrogenase (120-246) U/L Crossmatch See Detail Assessment and Plan (1) Influenza A Current Visit: Yes Status: Acute Priority: High Code(s): J10.1 - FLU DUE TO OTH IDENT INFLUENZA VIRUS W OTH RESP MANIFEST SNOMED Code(s): 067577840 (2) Sickle cell anemia with crisis Current Visit: Yes Status: Acute Priority: High Code(s): D57.00 - HB-SS DISEASE WITH CRISIS, UNSPECIFIED SNOMED Code(s): 129075051 Plan: Sickle cell pain episode: -Presented with progressive pain in the sternum along with the extremities consistent with prior pain episodes -He had been on hydroxyurea 1000 mg daily with no hospitalizations since May 2022, follows at [facility] -Prior to presentation, there was sinus congestion along with myalgias prior to sickle cell pain -Workup on admission was significant for influenza A -His current pain episode is secondary to influenza A -Continue Dilaudid 1 mg IV every 3 hours as needed as this is controlling his pain -Increase normal saline to 125 mg/h from 75 mg/h to provide more aggressive hydration as treatment for sickle cell pain crisis -Hemolysis noted on workup. Hgb 6.6 today, 1 unit PRBCs ordered. No reported SOB, breathing is non-labored. SPO2 96% on room air. If hypoxia and/or acute chest syndrome develops, would need to consider transfer for exchange transfusion. Will continue to monitor Hemoglobin SS sickle cell disease: -Previous complications include acute pain episodes, cholecystitis requiring cholecystectomy in 2010, and acute chest syndrome in 2014 -Last seen in clinic on 09/16/2022, where Hydrea was increased to 500 mg twice daily. Been following up at [facility], had virtual visit in March, and has upcoming appt in 2 weeks in clinic. Reports there has been no changes in regimen. He is currently on Hydrea 1000 mg daily prior to admission -Hydrea will not help alleviate his current pain episode and does not need to be started inpatient Influenza A: -Continue Tamiflu per primary team
--- NOTE | 2023-05-23 20:04 | P.PN ---
Subjective This is a pleasant 33 years old -[place]og[place] male with past medical history of sickle cell disorder. He follows up with Dr. Alan. 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 Patient presents because of generalized body aches and pain including 8/10 in severity, achy and sharp pain. However patient denies specific chest pain or abdominal pain. No urinary complaint or dysuria. No headache dizziness, limb weakness or numbness. No blurred vision. patient feels generally weak Patient smokes 6 to 7 cigarettes/day and he was counseled to quit and he agrees to the nicotine patch Patient denies chest pain dyspnea coughing. No palpitation. Vitals are stable and patient afebrile Labs stable. Hemoglobin 8.2. Patient has unremarkable INR 1.0. Unremarkable BMP and urinalysis is negative. Influenza A is positive. Chest x-ray is negative for acute process EKG showing sinus rhythm at [address]-T changes. Patient admitted with telemetry monitoring on IV fluid normal saline 75 mL/h 04/23/2023 Patient today awake alert at baseline, he has same back pain but looks more tired and more malaise. Has been having pain all over his body including chest pain for the last 2 days with no recent worsening. No dyspnea no coughing. No respiratory symptoms and his oxygen saturating his well. Also is complaining from headache, Fioricet is added for him. Vitals look stable and he is afebrile Hemoglobin dropped today 8.2 down to 6.8 and platelet count down to 146 while WBC is not within the range. Patient reports no source of bleeding. No black stool or blood in the stool which is brown in color. No bleeding from anywhere else. No new urinary complaint. Her troponin is mildly elevated but stable. Injection Molding Process Technician evaluated the patient and recommended outpatient workup. Remains on Tamiflu, normal saline 75 mL/h Because of his drop in hemoglobin, hematology/oncology team on the case who recommended to hold transfusion to review the case. We will do anemia workup including iron level, reticulocyte count, vitamin B12 and folate level. A blast crisis is suspected and we are going to check parvovirus 19. 05/22/2023 Patient awake alert Still complaining from back pain No other new complaints, no respiratory symptoms or hypoxia Continues on Tamiflu Hemoglobin improved 7.2 without blood transfusion platelet count normal at 160 Workup showing evidence of hemolysis with low haptoglobin-directly Balwinder, reticulocyte count and LDH No chest pain and suspicion for myocarditis is low, slightly elevated troponin secondary to demand/supply mismatch, however echocardiogram is still pending Remains on normal saline 125 mL/h and Tamiflu 05/23/2023 Right-sided lower cellulitis here patient still complains from back pain, no other new complaint He is hemodynamically stable, he is afebrile Hemoglobin came down again to 6.6 and hematology team today recommended 1 unit of blood transfusion which was ordered Rest of labs showed platelet 149, haptoglobin less than 10, reticulocyte count 20 and LDH 488 which looks the same as yesterday Remains on normal saline and Tamiflu Echocardiogram showing ejection fraction 50 to 55% with mild to moderate mitral regurgitation and cardiology team already signed off the case Objective - Vital Signs Vital signs: Vital Signs Temp 98.1 F 05/23/23 13:43 Pulse 82 05/23/23 13:50 Resp 16 05/23/23 13:50 BP 124/60 05/23/23 13:43 Pulse Ox 95 05/23/23 13:43 FiO2 Intake & Output 05/22/23 05/23/23 05/23/23 18:59 06:59 18:59 Intake Total 1840 720 Balance 1840 720 Intake: Intake, IV Titration 1500 Amount Sodium Chloride 0.9% 1, 1500 000 ml @ 125 mls/hr IV . Q8H [facility] Rx#:[id number] Oral 340 720 Blood Product 0 Unit 0 Other: Voiding Method Toilet Toilet Toilet # Voids 2 - Exam -GENERAL: The patient is alert and oriented x3, not in any acute distress. Well developed, well nourished. Generally weak with malaise HEENT: Pupils are round and equally reacting to light. EOMI. No scleral icterus. No conjunctival pallor. Normocephalic, atraumatic. No pharyngeal erythema. No thyromegaly. CARDIOVASCULAR: S1 and S2 present. No murmurs, rubs, or gallops. PULMONARY: Chest is clear to auscultation, no wheezing , no crackles. ABDOMEN: Soft, nontender, nondistended, normoactive bowel sounds. No palpable organomegaly. MUSCULOSKELETAL: No joint swelling or deformity. EXTREMITIES: No cyanosis, clubbing, or pedal edema. NEUROLOGICAL: Gross neurological examination did not reveal any focal deficits. SKIN: No rashes. no petechiae. Transfer tech - Labs CBC & Chem 7: 05/23/23 07:09 05/23/23 07:09 Labs: Abnormal Lab Results - Last 24 Hours (Table) 05/23/23 05/23/23 05/23/23 Range/Units 07:09 07:09 07:09 RBC 1.60 L (4.30-5.90) m/uL Hgb 6.6 L* (13.0-17.5) gm/dL Hct 19.1 L* (39.0-53.0) % MCV 119.2 H (80.0-100.0) fL MCH 41.0 H (25.0-35.0) pg RDW 21.2 H (11.5-15.5) % Plt Count 149 L (150-450) k/uL Nucleated RBCs 4 H (0-0) /100 WBC Macrocytosis Marked A Retic Count 20.0 H (0.5-2.0) % Haptoglobin <10.0 L (31.2-198.0) mg/dL Chloride 113 H (98-107) mmol/L BUN 5 L (9-20) mg/dL Creatinine 0.56 L (0.66-1.25) mg/dL Lactate Dehydrogenase 488 H (120-246) U/L Crossmatch 05/23/23 Range/Units 10:55 RBC (4.30-5.90) m/uL Hgb (13.0-17.5) gm/dL Hct (39.0-53.0) % MCV (80.0-100.0) fL MCH (25.0-35.0) pg RDW (11.5-15.5) % Plt Count (150-450) k/uL Nucleated RBCs (0-0) /100 WBC Macrocytosis Retic Count (0.5-2.0) % Haptoglobin (31.2-198.0) mg/dL Chloride (98-107) mmol/L BUN (9-20) mg/dL Creatinine (0.66-1.25) mg/dL Lactate Dehydrogenase (120-246) U/L Crossmatch See Detail Assessment and Plan Assessment: Sickle cell disease with possible sickle cell crisis, including pain crisis Acute Elevated troponin. Viral myocarditis is felt less likely. Mostly patient has demand/supply mismatch Worsening anemia and thrombocytopenia suspicious for hemolytic anemia. While aplastic crisis felt less likely Nicotine dependence Generalized weakness secondary to above. Plan: Start patient on Tamiflu Continue with normal saline 125 mL/h Pain medication and currently on Dilaudid. cardiology consult check echocardiogram floriculture professor recommended further workup as an outpatient Check for parvovirus infection and anemia workup. On follow-up with hematology/oncology consult Nicotine patch. Labs and medication were reviewed.. Continue same treatment. Continue with symptomatic treatment. Resume home medication. Monitor labs and vitals. DVT and GI prophylaxis. Further recommendations as per clinical course of the patient DVT prophylaxis: Subcutaneous heparin GI Prophylaxis: Pepcid Prognosis is guarded
[2023-05-23 20:31] VITALS: RESP 16
[2023-05-24 09:46] LABS: African American GFR (CKD) >90 (>60 ml/min/1.73 sqM); Anion Gap 5 mmol/L; Blood Urea Nitrogen 5 mg/dL (9-20); Calcium 9.2 mg/dL (8.4-10.2); Carbon Dioxide 21 mmol/L (22-30); Chloride 113 mmol/L (98-107); Glucose 99 mg/dL (74-99); LDH 595 U/L (120-246); Non-African American GFR(CKD) >90 (>60 ml/min/1.73 sqM); Potassium 4.5 mmol/L (3.5-5.1); Sodium 139 mmol/L (137-145)
[2023-05-24 10:22] VITALS: TEMP 98.5
[2023-05-24] MEDS: HYDROmorphone 0.5 MG/0.5 ML SYRINGE IVP PRN (11:06)
[2023-05-24 11:34] VITALS: BP 123/68; PULSE 71
[2023-05-24 12:41] LABS: Anisocytosis Moderate; HCT 25.3 % (39.0-53.0); Hypochromasia Slight; MCH 39.8 pg (25.0-35.0); MCHC 34.2 g/dL (31.0-37.0); MCV 116.4 fL (80.0-100.0); Macrocytosis Marked; Mean Platelet Volume 11.1; Platelet Count 148 k/uL (150-450); Poikilocytosis Marked; RBC 2.17 m/uL (4.30-5.90); RDW 20.9 % (11.5-15.5)
[2023-05-24 13:09] LABS: HGB 8.6 gm/dL (13.0-17.5); Reticulocyte % 13.6 % (0.5-2.0)
--- NOTE | 2023-05-24 13:32 | P.PN ---
Subjective Progress Note Date: 05/24/23 In follow-up today patient is reporting improvement in pain. Denies shortness of breath. SPO2 98% on room air. Pt afebrile. Hemoglobin 8.6 s/p 1 unit PRBCs Objective - Vital Signs Vital signs: Vital Signs Temp 98.5 F 05/24/23 08:00 Pulse 71 05/24/23 11:11 Resp 16 05/24/23 11:11 BP 123/68 05/24/23 11:11 Pulse Ox 98 05/24/23 11:11 FiO2 Intake & Output 05/23/23 05/24/23 05/24/23 18:59 06:59 18:59 Intake Total 1030 340 Balance 1030 340 Intake: Oral 720 340 Blood Product 310 Rc As-1 Unit 310 [id number] Other: Voiding Method Toilet Toilet Toilet # Voids 2 2 - Constitutional General appearance: Present: no acute distress - EENT Eyes: Present: anicteric sclerae, EOMI ENT: Present: hearing grossly normal - Respiratory Details: breathing is even and unlabored - Cardiovascular Details: skin warm and dry - Gastrointestinal General gastrointestinal: Present: soft. Absent: tenderness - Integumentary Integumentary: Absent: cyanotic - Neurologic Neurologic Comment(s): grossly intact - Musculoskeletal Musculoskeletal: Present: strength equal bilaterally - Psychiatric Psychiatric: Present: A&O x's 3 - Labs CBC & Chem 7: 05/24/23 09:10 05/24/23 09:10 Labs: Abnormal Lab Results - Last 24 Hours (Table) 05/23/23 05/24/23 05/24/23 Range/Units 10:55 09:10 09:10 RBC 2.17 L (4.30-5.90) m/uL Hgb 8.6 L D (13.0-17.5) gm/dL Hct 25.3 L (39.0-53.0) % MCV 116.4 H (80.0-100.0) fL MCH 39.8 H (25.0-35.0) pg RDW 20.9 H (11.5-15.5) % Plt Count 148 L (150-450) k/uL Macrocytosis Marked A Retic Count 13.6 H (0.5-2.0) % Chloride 113 H (98-107) mmol/L Carbon Dioxide 21 L (22-30) mmol/L BUN 5 L (9-20) mg/dL Creatinine 0.51 L (0.66-1.25) mg/dL Lactate Dehydrogenase 595 H (120-246) U/L Crossmatch See Detail Assessment and Plan (1) Influenza A Current Visit: Yes Status: Acute Priority: High Code(s): J10.1 - FLU DUE TO OTH IDENT INFLUENZA VIRUS W OTH RESP MANIFEST SNOMED Code(s): 052440429 (2) Sickle cell anemia with crisis Current Visit: Yes Status: Acute Priority: High Code(s): D57.00 - HB-SS DISEASE WITH CRISIS, UNSPECIFIED SNOMED Code(s): 381789682 Plan: Sickle cell pain episode: -Presented with progressive pain in the sternum along with the extremities consistent with prior pain episodes -He had been on hydroxyurea 1000 mg daily with no hospitalizations since May 2022, [facility] -Prior to presentation, there was sinus congestion along with myalgias prior to sickle cell pain -Workup on admission was significant for influenza A -His current pain episode is secondary to influenza A -Continue Dilaudid 1 mg IV every 3 hours as needed as this is controlling his pain -Increase normal saline to 125 mg/h from 75 mg/h to provide more aggressive hydration as treatment for sickle cell pain crisis -Hemolysis noted on workup. S/p 1 unit PRBCs for hgb 6.6. Repeat hgb 8.6 today. Reporting improvement in symptoms. No reported SOB, breathing is non-labored. SPO2 98% on room air Briefly discussed case with IM. Pt is cleared for discharge from hem/onc standpoint once cleared by IM and other consulted medical specialities. Hemoglobin SS sickle cell disease: -Previous complications include acute pain episodes, cholecystitis requiring cholecystectomy in 2010, and acute chest syndrome in 2014 -Last seen in clinic on 09/16/2022, where Hydrea was increased to 500 mg twice daily. Been following up at [facility], had virtual visit in March, and has upcoming appt in 2 weeks in clinic. Reports there has been no changes in regimen. He is currently on Hydrea 1000 mg daily prior to admission -Hydrea will not help alleviate his current pain episode and does not need to be started inpatient -Will f/u with hem/onc at [facility] upon discharge for continued management Influenza A: -Continue Tamiflu per primary team
[2023-05-24 15:15] LABS: Neutrophils % (M) 44 %; Nucleated Red Blood Cells 7 /100 WBC (0-0); Total Cells Counted 200
[2023-05-24 15:16] LABS: Eosinophils # (M) 0.06 k/uL (0-0.7); Lymphocytes # (M) 3.01 k/uL (1.0-4.8); Monocytes # (M) 0.58 k/uL (0-1.0); Neutrophils # (M) 2.82 k/uL (1.3-7.7); Sickle Cells Present; Target Cells Present; WBC 6.4 k/uL (3.8-10.6)
[2023-05-24 15:17] LABS: Polychromasia Present
--- NOTE | 2023-05-25 05:50 | P.DS ---
Providers Date of admission: 05/20/23 13:25 Attending physician: Nando Skinner MD Consults: 05/20/23 19:39 Consult Physician Urgent Consulting Provider: Da Alan Consult Reason/Comments: sickle cell disease Do you want consulting provider notified?: Yes Primary care physician: Da Alan MD Hospital Course: Diagnoses: Sickle cell disease with possible sickle cell crisis, including pain crisis Influenza A infection Acute Elevated troponin. Viral myocarditis is felt less likely. Mostly patient has demand/supply mismatch. Echocardiogram showing ejection fraction 50 to 55% with mild to moderate mitral regurgitation Worsening anemia and thrombocytopenia suspicious for hemolytic anemia. While aplastic crisis felt less likely Nicotine dependence Generalized weakness and body aches secondary to above. Hospital course: This is a pleasant 33 years old -[place] male with past medical history of sickle cell disorder. He follows up with Dr. Alan. 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. Patient presents because of generalized body aches and back pain including 8/10 in severity, achy and sharp pain. Patient was found to have also hemolytic anemia with hemoglobin went down to 6.6 and received one unit of blood transfusion. Hemoglobin improved up to 8.6. Also patient was positive for influenza A, he was treated with Tamiflu 5 days. Also patient received extensive IV hydration and pain management. Patient showed interval improvement. His body aches improved. He denies any other complaints. His breathing is nonlabored and he saturating high 90s on ro om air. No chest pain no other new complaint Cardiology team signed off the case. Hematology team. The patient for discharge Patient will be discharged on pain medication including Motrin. And Tylenol. Tamiflu Problems and management plan were discussed with the patient and he verbalized understanding and acceptance Patient was found stable and can be discharged home in guarded prognosis however he needs follow-up as an outpatient. Patient was instructed to follow up with PCP within one week and patient agrees Patient was instructed to follow up with his exceptional children teacher Dr. Alan when jerad nestor discharge and he agrees Physical exam Gen: patient is a AAOx3, no distress CVS: S1-S2, RRR, no murmur Lungs: B/L CTA, no wheezing Abdomen: soft, no distention, no tenderness, positive bowel sounds Extremity: no leg edema or induration Time spent more than 35 minutes Patient Condition at Discharge: Fair Plan - Discharge Summary Discharge Rx Participant: Yes New Discharge Prescriptions: New Ibuprofen [Motrin] 400 mg PO Q8HR PRN 3 Days #12 tab PRN Reason: Pain Oseltamivir [Tamiflu] 75 mg PO Q12HR 1 Days #2 cap Nicotine 14Mg/24Hr Patch [Habitrol] 1 patch TRANSDERM DAILY patch Acetaminophen Tab [Tylenol] 650 mg PO Q6HR PRN tab PRN Reason: Fever And/ Or Pain Continue oxyCODONE-APAP 5-325MG [Percocet 5-325 mg] 1 tab PO Q6H PRN PRN Reason: Pain Folic Acid 1 mg PO DAILY Naloxone HCl [Narcan] 4 mg NASAL DIRECTED PRN PRN Reason: Opioid Reversal Hydroxyurea [Hydrea] 1,000 mg PO DAILY Discharge Medication List Folic Acid 1 mg PO DAILY 05/20/23 [History] Hydroxyurea [Hydrea] 1,000 mg PO DAILY 05/20/23 [History] Naloxone HCl [Narcan] 4 mg NASAL DIRECTED PRN 05/20/23 [History] oxyCODONE-APAP 5-325MG [Percocet 5-325 mg] 1 tab PO Q6H PRN 05/20/23 [History] Acetaminophen Tab [Tylenol] 650 mg PO Q6HR PRN tab 05/24/23 [Rx] Ibuprofen [Motrin] 400 mg PO Q8HR PRN 3 Days #12 tab 05/24/23 [Rx] Nicotine 14Mg/24Hr Patch [Habitrol] 1 patch TRANSDERM DAILY patch 05/24/23 [Rx] Oseltamivir [Tamiflu] 75 mg PO Q12HR 1 Days #2 cap 05/24/23 [Rx] Follow up Appointment(s)/Referral(s): Da Alan MD [Primary Care Provider] - 1-2 days (office will call with an appt.) Activity/Diet/Wound Care/Special Instructions: regular diet activity is restricted till you see your doctor we recommend to contact your health insurance provider to find a nearby primary care physician , please call to make appointment in one week Discharge Disposition: HOME SELF-CARE
== END 2023-05-24 15:38 | disposition home or self-care (01) | DRG 662 ==
LOC: EC 10:18 → OBSVTOIN 13:25 → 6NMEDSUR 13:25 → 3SCARD 17:40
PROVIDERS: ADMIT Internal Medicine; ATTEND Internal Medicine
PROC: 30233N1 Transfusion of Nonautologous Red Blood Cells into Peripheral Vein, Percutaneous Approach (ICD-10-PCS; principal; 2023-05-23)
DX: D57.00 Hb-SS disease with crisis, unspecified (principal); D69.6 Thrombocytopenia, unspecified; L03.115 Cellulitis of right lower limb; I5A Non-ischemic myocardial injury (non-traumatic); J10.1 Influenza due to other identified influenza virus with other respiratory manifestations; R07.2 Precordial pain; Z79.899 Other long term (current) drug therapy; F17.210 Nicotine dependence, cigarettes, uncomplicated; I34.0 Nonrheumatic mitral (valve) insufficiency; G89.29 Other chronic pain; Z28.310 Unvaccinated for COVID-19; Z28.21 Immunization not carried out because of patient refusal; Z88.1 Allergy status to other antibiotic agents
CPT/HCPCS: 36415; 71046; 80048; 80053; 81003; 82248; 82607; 82746; 83010; 83540; 83550; 83615; 84484; 85025; 85045; 85610; 85730; 86747; 86850; 86900; 86901; 86920; 87636; 93005; 93306; 96361; 96374; 96375; 96376; 99285

== ENCOUNTER 2023-11-14 15:27 | Inpatient (IN) | payer OTHER ==
[2023-11-14] MEDS: HYDROmorphone 1 MG/ML 1 ML SYRINGE IVP STA ×3 (16:29→18:24)
[2023-11-14] MEDS: SODIUM CHLORIDE 0.9% 1,000 ML IV ONE (16:29)
[2023-11-14 17:01] LABS: Anisocytosis Slight; HCT 28.2 % (39.0-53.0); HGB 9.5 gm/dL (13.0-17.5); MCH 41.1 pg (25.0-35.0); MCHC 33.7 g/dL (31.0-37.0); Macrocytosis Marked; Mean Platelet Volume 9.2; Platelet Count 275 k/uL (150-450); Poikilocytosis Slight; RBC 2.31 m/uL (4.30-5.90); RDW 17.2 % (11.5-15.5); Reticulocyte % 12.9 % (0.5-2.0)
[2023-11-14 17:08] LABS: ALT 26 U/L (4-49); AST 42 U/L (17-59); African American GFR (CKD) >90 (>60 ml/min/1.73 sqM); Albumin 4.4 g/dL (3.5-5.0); Alkaline Phosphatase 153 U/L (38-126); Anion Gap 7 mmol/L; Blood Urea Nitrogen 8 mg/dL (9-20); Carbon Dioxide 23 mmol/L (22-30); Chloride 109 mmol/L (98-107); Glucose 98 mg/dL (74-99); Non-African American GFR(CKD) >90 (>60 ml/min/1.73 sqM); Potassium 4.3 mmol/L (3.5-5.1); Sodium 139 mmol/L (137-145); Total Bilirubin 2.7 mg/dL (0.2-1.3); Total Protein 7.2 g/dL (6.3-8.2)
[2023-11-14] MEDS: KETOROLAC 15 MG/ML 1 ML VIAL IVP STA (17:17)
[2023-11-14 17:32] LABS: Basophils # (M) 0.08 k/uL (0-0.2); Neutrophils % (M) 44 %; Nucleated Red Blood Cells 3 /100 WBC (0-0); Total Cells Counted 200
[2023-11-14 17:33] LABS: Lymphocytes # (M) 3.95 k/uL (1.0-4.8); Neutrophils # (M) 3.34 k/uL (1.3-7.7); WBC 7.6 k/uL (3.8-10.6)
--- NOTE | 2023-11-14 17:34 | XR ---
EXAMINATION TYPE: XR chest 2V DATE OF EXAM: 11/14/2023 5:31 PM CLINICAL INDICATION: Male, 33 years old with history of pain; COMPARISON: Chest radiographs from 05/20/2023 TECHNIQUE: XR chest 2V Frontal view of the chest. FINDINGS: Lungs/Pleura: There is no evidence of pleural effusion, focal consolidation, or pneumothorax. Pulmonary vascularity: Unremarkable. Heart/mediastinum: Cardiomediastinal silhouette is unremarkable. Musculoskeletal: No acute osseous pathology. Other findings: None IMPRESSION: No acute cardiopulmonary disease/process.
[2023-11-14 18:11] LABS: Appearance,Urine Clear (Clear); Bilirubin,Urine Negative (Negative); Blood,Urine Negative (Negative); Color,Urine Colorless; Glucose,Urine (UA) Negative (Negative); Ketones,Urine Negative (Negative); Leukocyte Esterase,Urine Negative (Negative); Nitrite,Urine Negative (Negative); Protein,Urine Negative (Negative); Specific Gravity,Urine 1.004 (1.001-1.035); Urobilinogen,Urine <2.0 mg/dL (<2.0)
--- NOTE | 2023-11-14 18:35 | ED ---
General Adult HPI - General Chief complaint: Back Pain/Injury Stated complaint: spinal pain Time Seen by Provider: 11/14/23 15:51 Source: patient Mode of arrival: ambulatory Limitations: no limitations - History of Present Illness Initial comments: 33-year-old male with history of sickle cell anemia presenting with chief complaint of back pain. Patient has had mid and lower back pain for about 2 days. Also admits to some rib and chest pain. Feels consistent with his previous sickle cell flareups. States that he was trying to take medication at home but was unable to manage his pain on his own. He denies difficulty breathing. No fevers. No abdominal pain, nausea, vomiting. No recent illness. - Related Data Home Medications Medication Instructions Recorded Confirmed Folic Acid 1 mg PO DAILY 05/20/23 11/14/23 Hydroxyurea [Hydrea] 1,000 mg PO DAILY 05/20/23 11/14/23 oxyCODONE-APAP 10-325MG [Percocet 1 tab PO Q4H PRN 11/14/23 11/14/23 10-325 mg] Previous Rx's Medication Instructions Recorded Ibuprofen [Motrin] 400 mg PO Q8HR PRN 3 Days #12 tab 05/24/23 Allergies Allergy/AdvReac Type Severity Reaction Status Date / Time cefazolin Allergy Rash/Hives Verified 11/14/23 19:23 Review of Systems ROS Statement: Those systems with pertinent positive or pertinent negative responses have been documented in the HPI. ROS Other: All systems not noted in ROS Statement are negative. Past Medical History Past Medical History: Blood Disorder Additional Past Medical History / Comment(s): sickle cell History of Any Multi-Drug Resistant Organisms: None Reported Past Surgical History: Cholecystectomy Additional Past Surgical History / Comment(s): 2011 cholecystectomy Past Anesthesia/Blood Transfusion Reactions: No Reported Reaction Past Psychological History: No Psychological Hx Reported Smoking Status: Current every day smoker Past Alcohol Use History: None Reported Past Drug Use History: None Reported General Exam Limitations: no limitations General appearance: alert, in no apparent distress Head exam: Present: atraumatic, normocephalic Eye exam: Present: normal appearance, EOMI Neck exam: Present: normal inspection. Absent: meningismus Respiratory exam: Present: normal lung sounds bilaterally. Absent: respiratory distress, wheezes, rales, rhonchi, stridor Cardiovascular Exam: Present: regular rate, normal rhythm, normal heart sounds. Absent: systolic murmur, diastolic murmur, rubs, gallop, clicks Back exam: Present: tenderness Neurological exam: Present: alert, oriented X3 Psychiatric exam: Present: normal affect, normal mood Skin exam: Present: warm, dry Course Vital Signs 11/14/23 11/14/23 11/14/23 15:38 17:09 18:21 Temperature 98.8 F Pulse Rate 99 90 83 Respiratory 20 16 18 Rate Blood Pressure 137/85 173/94 119/60 O2 Sat by Pulse 97 98 98 Oximetry 11/14/23 19:55 Temperature 98.7 F Pulse Rate 85 Respiratory 18 Rate Blood Pressure 169/82 O2 Sat by Pulse 97 Oximetry Medical Decision Making - Medical Decision Making Was pt. sent in by a medical professional or institution (Dr. PA, MANAGER GAMES, urgent care, hospital, or [facility]...) When possible be specific @ -No Did you speak to anyone other than the patient for history (EMS, parent, family, police, friend...)? What history was obtained from this source @ -No Did you review nursing and triage notes (agree or disagree)? Why? @ -I reviewed and agree with nursing and triage notes Were old charts reviewed (outside hosp., previous admission, EMS record, old EKG, old radiological studies, urgent care reports/EKG's, [facility] records)? Report findings @ -No old charts were reviewed Differential Diagnosis (chest pain, altered mental status, abdominal pain women, abdominal pain men, vaginal bleeding, weakness, fever, dyspnea, syncope, headache, dizziness, GI bleed, back pain, seizure, CVA, palpatations, mental health, musculoskeletal)? @ - MDM Differential Back Pain: Strain, zoster, cauda equina syndrome, epidural abscess, vertebral osteomyelitis, discitis, fracture, subluxation, disc herniation, DJD, spinal stenosis, dissection, AAA, pancreatitis, peptic ulcer disease, pyelonephritis, kidney stone this is not meant to be an all-inclusive list. EKG interpreted by me (3pts min.). @ -EKG shows sinus rhythm ventricular rate 90. MS interval 163. QRS 83. QT 327. QTc 375. X-rays interpreted by me (1pt min.). @ -Chest x-ray shows no acute cardiopulmonary process CT interpreted by me (1pt min.). @ -None done U/S interpreted by me (1pt. min.). @ -None done What testing was considered but not performed or refused? (CT, X-rays, U/S, lab s)? Why? @ -None What meds were considered but not given or refused? Why? @ -None Did you discuss the management of the patient with other professionals (professionals i.e. Dr., PA, MANAGER GAMES, lab, RT, psych nurse, social worker assistant, tanning wheel operator, teacher, personnel training officer, caser shoe parts)? Give summary @ -Spoke with Leonard from [facility] who accepted admission Was smoking cessation discussed for >3mins.? @ -No Was critical care preformed (if so, how long)? @ -No Were there social determinants of health that impacted care today? How? (Homelessness, low income, unemployed, alcoholism, drug addiction, transportation, low edu. Level, literacy, decrease access to med. care, fpc, rehab)? @ -No Was there de-escalation of care discussed even if they declined (Discuss DNR or withdrawal of care, Hospice)? DNR status @ -No What co-morbidities impacted this encounter? (DM, HTN, Smoking, COPD, CAD, Cancer, CVA, ARF, Chemo, Hep., AIDS, mental health diagnosis, sleep apnea, morbid obesity)? @ -Sickle cell anemia Was patient admitted / discharged? Hospital course, mention meds given and route, prescriptions, significant lab abnormalities, going to OR and other pertinent info. @ -33-year-old male with history of sickle cell anemia presenting with chief complaint of back pain. History and physical exam are conducted. Hemoglobin 9.5 which is improved from his usual baseline. Reticulocyte count is 12.9. Negative troponin. Chest x-ray is negative. Patient will require admission for pain control. He is agreeable with this plan. I discussed this case with my attending Dr. Javier Undiagnosed new problem with uncertain prognosis? @ -No Drug Therapy requiring intensive monitoring for toxicity (Heparin, Nitro, Insulin, Cardizem)? @ -No Were any procedures done? @ -No Diagnosis/symptom? @ -Sickle cell anemia crisis Acute, or Chronic, or Acute on Chronic? @ -Acute Uncomplicated (without systemic symptoms) or Complicated (systemic symptoms)? @ -Complicated Side effects of treatment? @ -No Exacerbation, Progression, or Severe Exacerbation? @ -No Poses a threat to life or bodily function? How? (Chest pain, USA, GA, pneumonia, PE, COPD, DKA, ARF, appy, cholecystitis, CVA, Diverticulitis, Homicidal, Suicidal, threat to staff... and all critical care pts) @ -Yes - Lab Data Result diagrams: 11/14/23 16:19 11/14/23 16:19 Lab Results 11/14/23 11/14/23 11/14/23 Range/Units 16:19 16:19 16:19 WBC 7.6 (3.8-10.6) k/uL RBC 2.31 L (4.30-5.90) m/uL Hgb 9.5 L (13.0-17.5) gm/dL Hct 28.2 L (39.0-53.0) % MCV 122.0 H (80.0-100.0) fL MCH 41.1 H (25.0-35.0) pg MCHC 33.7 (31.0-37.0) g/dL RDW 17.2 H (11.5-15.5) % Plt Count 275 (150-450) k/uL MPV 9.2 Neutrophils % (Manual) 44 % Lymphocytes % (Manual) 52 % Monocytes % (Manual) 4 % Basophils % (Manual) 1 % Neutrophils # (Manual) 3.34 (1.3-7.7) k/uL Lymphocytes # (Manual) 3.95 (1.0-4.8) k/uL Monocytes # (Manual) 0.30 (0-1.0) k/uL Basophils # (Manual) 0.08 (0-0.2) k/uL Nucleated RBCs 3 H (0-0) /100 WBC Manual Slide Review Performed Poikilocytosis Slight Anisocytosis Slight Macrocytosis Marked A Retic Count 12.9 H (0.5-2.0) % Sodium 139 (137-145) mmol/L Potassium 4.3 (3.5-5.1) mmol/L Chloride 109 H (98-107) mmol/L Carbon Dioxide 23 (22-30) mmol/L Anion Gap 7 mmol/L BUN 8 L (9-20) mg/dL Creatinine 0.68 (0.66-1.25) mg/dL Est GFR (CKD-EPI)AfAm >90 (>60 ml/min/1.73 sqM) Est GFR (CKD-EPI)NonAf >90 (>60 ml/min/1.73 sqM) Glucose 98 (74-99) mg/dL Calcium 10.0 (8.4-10.2) mg/dL Total Bilirubin 2.7 H (0.2-1.3) mg/dL AST 42 (17-59) U/L ALT 26 (4-49) U/L Alkaline Phosphatase 153 H (38-126) U/L Troponin I <0.012 (0.000-0.034) ng/mL Total Protein 7.2 (6.3-8.2) g/dL Albumin 4.4 (3.5-5.0) g/dL Urine Color Urine Appearance (Clear) Urine pH (5.0-8.0) Ur Specific [place] (1.001-1.035) Urine Protein (Negative) Urine Glucose (UA) (Negative) Urine Ketones (Negative) Urine Blood (Negative) Urine Nitrite (Negative) Urine Bilirubin (Negative) Urine Urobilinogen (<2.0) mg/dL Ur Leukocyte Esterase (Negative) 11/14/23 Range/Units 16:19 WBC (3.8-10.6) k/uL RBC (4.30-5.90) m/uL Hgb (13.0-17.5) gm/dL Hct (39.0-53.0) % MCV (80.0-100.0) fL MCH (25.0-35.0) pg MCHC (31.0-37.0) g/dL RDW (11.5-15.5) % Plt Count (150-450) k/uL MPV Neutrophils % (Manual) % Lymphocytes % (Manual) % Monocytes % (Manual) % Basophils % (Manual) % Neutrophils # (Manual) (1.3-7.7) k/uL Lymphocytes # (Manual) (1.0-4.8) k/uL Monocytes # (Manual) (0-1.0) k/uL Basophils # (Manual) (0-0.2) k/uL Nucleated RBCs (0-0) /100 WBC Manual Slide Review Poikilocytosis Anisocytosis Macrocytosis Retic Count (0.5-2.0) % Sodium (137-145) mmol/L Potassium (3.5-5.1) mmol/L Chloride (98-107) mmol/L Carbon Dioxide (22-30) mmol/L Anion Gap mmol/L BUN (9-20) mg/dL Creatinine (0.66-1.25) mg/dL Est GFR (CKD-EPI)AfAm (>60 ml/min/1.73 sqM) Est GFR (CKD-EPI)NonAf (>60 ml/min/1.73 sqM) Glucose (74-99) mg/dL Calcium (8.4-10.2) mg/dL Total Bilirubin (0.2-1.3) mg/dL AST (17-59) U/L ALT (4-49) U/L Alkaline Phosphatase (38-126) U/L Troponin I (0.000-0.034) ng/mL Total Protein (6.3-8.2) g/dL Albumin (3.5-5.0) g/dL Urine Color Colorless Urine Appearance Clear (Clear) Urine pH 6.0 (5.0-8.0) Ur Specific [place] 1.004 (1.001-1.035) Urine Protein Negative (Negative) Urine Glucose (UA) Negative (Negative) Urine Ketones Negative (Negative) Urine Blood Negative (Negative) Urine Nitrite Negative (Negative) Urine Bilirubin Negative (Negative) Urine Urobilinogen <2.0 (<2.0) mg/dL Ur Leukocyte Esterase Negative (Negative) Disposition Clinical Impression: Sickle cell anemia with crisis Disposition[facility] Condition: Fair Time of Disposition: 18:35
[2023-11-14] MEDS ORDERED: NALOXONE 0.4 MG/ML 1 ML VIAL IV PRN (18:53)
[2023-11-14] MEDS: HYDROmorphone 1 MG/ML 1 ML SYRINGE IVP PRN (20:00)
[2023-11-14] MEDS: SODIUM CHLORIDE 0.9% 1,000 ML IV SCH (20:11)
[2023-11-14] MEDS: KETOROLAC 15 MG/ML 1 ML VIAL IVP PRN (21:47)
[2023-11-14] MEDS: HYDROcodone/APAP 5-325MG 1 EACH TAB PO PRN (21:54)
[2023-11-15] MEDS ORDERED: polyethylene glycoL 3350 17 GM POWD.PACK PO PRN (10:40)
[2023-11-15] MEDS: FOLIC ACID 1 MG TAB PO SCH (11:11)
[2023-11-15] MEDS: SENNOSIDES-DOCUSATE SODIUM 1 EACH TAB PO SCH (11:11)
[2023-11-15] MEDS: HYDROmorphone 1 MG/ML 1 ML SYRINGE IVP PRN (11:39)
[2023-11-15] MEDS: oxyCODONE-APAP 10-325MG 1 EACH TAB PO PRN (13:20)
--- NOTE | 2023-11-15 15:25 | P.HPIM ---
History of Present Illness H&P Date: 11/15/23 This is a 33-year-old male who presented to the emergency department with severe back and spinal pain. Patient follows with Dr. Alan hematology/oncology in the outpatient setting with history of sickle cell. Patient reports he takes Oxy at home and was unable to control the pain and was instructed to come to the emergency department for further evaluation. Patient was admitted under observ ation for intractable pain and sickle cell crisis. Hematology/oncology was placed on consult and medication adjustments including IV Dilaudid has been ordered. Patient's white count on admission is 7.6 with a hemoglobin of 9.5, MCV is elevated at 122 with MCH of 41.1, RDW 17.2, marked macrocytosis and retake count is elevated at 12.9. Sodium is 139 with a potassium of 4.3 and current creatinine is 0.68. Total bilirubin elevated at 2.7 which is chronic and actually improved from previously this year. Indirect bilirubin ordered and pending at this time. Troponins x 3 were negative and urinalysis is negative. Chest x-ray also done in the ER showing no acute cardiopulmonary process or dis ease. REVIEW OF SYSTEMS: CONSTITUTIONAL: No fever, no malaise, no fatigue. HEENT: No recent visual problems or hearing problems. Denied any sore throat. CARDIOVASCULAR: No chest pain, orthopnea, PND, no palpitations, no syncope. PULMONARY: No shortness of breath, no cough, no hemoptysis. GASTROINTESTINAL: No diarrhea, no nausea, no vomiting, no abdominal pain. NEUROLOGICAL: No headaches, no weakness, no numbness. HEMATOLOGICAL: Denies any bleeding or petechiae. GENITOURINARY: Denies any burning micturition, frequency, or urgency. MUSCULOSKELETAL/RHEUMATOLOGICAL: Reports severe uncontrolled back pain ENDOCRINE: Denies any polyuria or polydipsia. The rest of the 14-point review of systems is negative. PHYSICAL EXAMINATION: GENERAL: The patient is a 33-year-old -[place] male who is alert and oriented x3, not in any acute distress. Well developed, well nourished. HEENT: Pupils are round and equally reacting to light. EOMI. No scleral icterus. No conjunctival pallor. Normocephalic, atraumatic. No pharyngeal erythema. No thyromegaly. CARDIOVASCULAR: S1 and S2 present. No murmurs, rubs, or gallops. PULMONARY: Diminished breath sounds bilaterally otherwise chest is clear to auscultation, no wheezing or crackles. ABDOMEN: Soft, nontender, nondistended, normoactive bowel sounds. No palpable organomegaly. MUSCULOSKELETAL: No joint swelling or deformity. EXTREMITIES: No cyanosis, clubbing, or pedal edema. NEUROLOGICAL: Gross neurological examination did not reveal any focal deficits. SKIN: No rashes. Assessment: Intractable back pain with history of sickle cell anemia follows with hematology outpatient Elevated total bilirubin although improved from previous readings, not significantly elevated History of previous sickle cell crisis, does not appear to be in active sickle cell crisis at this time Chronic pain Continued ongoing nicotine dependence GI prophylaxis DVT prophylaxis Full code Plan: Patient seen and evaluated by hematology/oncology with adjustments to medications being made and home medications reviewed and resumed other than will hold Hydrea for now Patient being started on IV Dilaudid and home Oxy has been resumed. Discussed with the patient the importance of continuing with chronic pain medications along with acute narcotics for pain management and control Encouraged increase activity as tolerated Indirect bilirubin ordered as total bilirubin is elevated and pending Encouraged oral intake Will monitor overnight with possible discharge planning in the next 24 hours The impression and plan of care has been dictated by Klarissa Petersen, Nurse Practitioner as directed. Dr. Brianne MD I have performed a history and examination and MDM of this patient, discussed the same with the dictator, and agree with the dictator's assessment and plan as written ,documented as a scribe. Based on total visit time, I have performed more than 50% of the visit. Past Medical History Past Medical History: Blood Disorder Additional Past Medical History / Comment(s): sickle cell History of Any Multi-Drug Resistant Organisms: None Reported Past Surgical History: Cholecystectomy Additional Past Surgical History / Comment(s): 2011 cholecystectomy Past Anesthesia/Blood Transfusion Reactions: No Reported Reaction Past Psychological History: No Psychological Hx Reported Smoking Status: Current every day smoker Past Alcohol Use History: None Reported Past Drug Use History: None Reported Medications and Allergies Home Medications Medication Instructions Recorded Confirmed Type Folic Acid 1 mg PO DAILY 05/20/23 11/14/23 History Hydroxyurea [Hydrea] 1,000 mg PO DAILY 05/20/23 11/14/23 History Ibuprofen [Motrin] 400 mg PO Q8HR PRN 3 Days #12 tab 05/24/23 11/14/23 Rx oxyCODONE-APAP 10-325MG [Percocet 1 tab PO Q4H PRN 11/14/23 11/14/23 History 10-325 mg] Allergies Allergy/AdvReac Type Severity Reaction Status Date / Time cefazolin Allergy Rash/Hives Verified 11/14/23 19:23 Physical Exam Vitals: Vital Signs Temp Pulse Pulse Resp BP BP Pulse Ox 11/15/23 07:11 97.9 F 70 15 100/62 95 11/15/23 02:00 97.8 F 77 17 114/65 96 11/14/23 20:52 98.2 F 71 18 142/73 99 11/14/23 19:55 98.7 F 85 18 169/82 97 11/14/23 18:21 83 18 119/60 98 11/14/23 17:09 90 16 173/94 98 11/14/23 15:38 98.8 F 99 20 137/85 97 Intake and Output 11/14/23 11/15/23 11/15/23 22:59 06:59 14:59 Intake Total 470 Balance 470 Intake: Other 470 Other: Voiding Method Toilet # Voids 1 2 Weight 68.039 kg Results CBC & Chem 7: 11/14/23 16:19 11/14/23 16:19 Labs: Abnormal Lab Results - Last 24 Hours (Table) 11/14/23 11/14/23 Range/Units 16:19 16:19 RBC 2.31 L (4.30-5.90) m/uL Hgb 9.5 L (13.0-17.5) gm/dL Hct 28.2 L (39.0-53.0) % MCV 122.0 H (80.0-100.0) fL MCH 41.1 H (25.0-35.0) pg RDW 17.2 H (11.5-15.5) % Nucleated RBCs 3 H (0-0) /100 WBC Macrocytosis Marked A Retic Count 12.9 H (0.5-2.0) % Chloride 109 H (98-107) mmol/L BUN 8 L (9-20) mg/dL Total Bilirubin 2.7 H (0.2-1.3) mg/dL Alkaline Phosphatase 153 H (38-126) U/L Thrombosis Risk Factor Assmnt - Choose All That Apply Any of the Below Risk Factors Present?: No
--- NOTE | 2023-11-15 17:29 | P.CONS ---
History of Present Illness - Reason for Consult Consult date: 11/15/23 sickle cell crisis Requesting physician: Yoav Mccullough - Chief Complaint back pain,spinal injury - History of Present Illness Mr. Kemp is a 33-year-old male pt of Dr. Flaca Alan with a PMH significant for sickle cell disease complicated by acute pain crises, cholecystitis requiring cholecystectomy in 2010, and acute chest syndrome in 2014, ankle ulceration and priaprism. He had been treated with hydrea and transfusion exchange in the past. He was admitted for an acute pain crisis at [facility] on 06/10/2022. He did have an episode of priapism prior to his admission. This slowly improved with hydration and pain management. He did note palpitations during his admission, with echo performed on 06/11/2022 noting ejection fraction of 60 to 65% with mild concentric left ventricular hypertrophy along with mild to moderate tricuspid regurgitation. On discharge, he was provided a prescription for Hydrea 500 mg daily and established with Dr. Alan for Hematology care. He was following up as prescribed and tolerating hydrea well. 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 He did have hospitalization for acute pain crisis in May 2023 secondary to influenza A infection treated with IV fluids and pain medication and received 1 unit packed red blood cells on 05/23/2023. He was inpt at of 10/25- for crises. Reports increased stress last few months from getting , financial changes. Last seen in [facility] 11/04/23. Pt has abstained from illicit drug use for at least 3 years now! He reports significantly fewer acute pain crises. Admitted currently with back pain, started 2-3 days ago, persistent, feels similar to previous sickle cell crises he has experienced. Denied fevers, recent illness. Review of Systems 10 point ROS is neg except as stated in HPI Past Medical History Past Medical History: Blood Disorder Additional Past Medical History / Comment(s): sickle cell History of Any Multi-Drug Resistant Organisms: None Reported Past Surgical History: Cholecystectomy Additional Past Surgical History / Comment(s): 2010 cholecystectomy Past Anesthesia/Blood Transfusion Reactions: No Reported Reaction Past Psychological History: No Psychological Hx Reported Smoking Status: Current every day smoker Past Alcohol Use History: None Reported Past Drug Use History: None Reported Medications and Allergies Home Medications Medication Instructions Recorded Confirmed Type Folic Acid 1 mg PO DAILY 05/20/23 11/14/23 History Hydroxyurea [Hydrea] 1,000 mg PO DAILY 05/20/23 11/14/23 History Ibuprofen [Motrin] 400 mg PO Q8HR PRN 3 Days #12 tab 05/24/23 11/14/23 Rx oxyCODONE-APAP 10-325MG [Percocet 1 tab PO Q4H PRN 11/14/23 11/14/23 History 10-325 mg] Allergies Allergy/AdvReac Type Severity Reaction Status Date / Time cefazolin Allergy Rash/Hives Verified 11/14/23 19:23 Physical Exam Vitals: Vital Signs Temp Pulse Pulse Resp BP BP Pulse Ox 11/15/23 02:00 97.8 F 77 17 114/65 96 11/14/23 20:52 98.2 F 71 18 142/73 99 11/14/23 19:55 98.7 F 85 18 169/82 97 11/14/23 18:21 83 18 119/60 98 11/14/23 17:09 90 16 173/94 98 11/14/23 15:38 98.8 F 99 20 137/85 97 Intake and Output 11/14/23 11/15/23 11/15/23 22:59 06:59 14:59 Intake Total 470 Balance 470 Intake: Other 470 Other: Voiding Method Toilet # Voids 1 2 Weight 68.039 kg - Constitutional General appearance: average body habitus, cooperative, no acute distress - EENT Eyes: anicteric sclerae, EOMI ENT: hearing grossly normal, normal oropharynx - Neck Neck: no lymphadenopathy - Respiratory Respiratory: bilateral: CTA - Cardiovascular Rhythm: regular Heart sounds: normal: S1, S2 Abnormal Heart Sounds: no systolic murmur, no diastolic murmur, no rub, no S3 Gallop, no S4 Gallop, no click, no other leg Peripheral Edema: bilateral: None - Gastrointestinal General gastrointestinal: normal bowel sounds, soft - Integumentary Integumentary: normal - Neurologic Neurologic: CNII-XII intact - Musculoskeletal Musculoskeletal: strength equal bilaterally - Psychiatric Psychiatric: A&O x's 3, appropriate affect, intact judgment & insight Results CBC & Chem 7: 11/14/23 16:19 11/14/23 16:19 Labs: Abnormal Lab Results - Last 24 Hours (Table) 11/14/23 11/14/23 Range/Units 16:19 16:19 RBC 2.31 L (4.30-5.90) m/uL Hgb 9.5 L (13.0-17.5) gm/dL Hct 28.2 L (39.0-53.0) % MCV 122.0 H (80.0-100.0) fL MCH 41.1 H (25.0-35.0) pg RDW 17.2 H (11.5-15.5) % Nucleated RBCs 3 H (0-0) /100 WBC Macrocytosis Marked A Retic Count 12.9 H (0.5-2.0) % Chloride 109 H (98-107) mmol/L BUN 8 L (9-20) mg/dL Total Bilirubin 2.7 H (0.2-1.3) mg/dL Alkaline Phosphatase 153 H (38-126) U/L Chest x-ray: report reviewed Assessment and Plan (1) Sickle cell anemia with crisis Current Visit: Yes Status: Acute Priority: High Code(s): D57.00 - HB-SS DISEASE WITH CRISIS, UNSPECIFIED SNOMED Code(s): 460967374 Plan: Sickle cell crisis -Pt receiving hydration, tolerating oral intake. -Receiving pain medications. Patient requested an adjustment. -Discussed pain mgmt with nursing. Encouraged discussions with patient so that he can be transition back to his oral pain meds as soon as tolerable -Medications for prevention of narcotic induced constipation ordered -No significant anemia, does not require transfusion at this time. -Resume hydrea -Case discussed with Attending. Have asked for an overnight stay for pain control, additional hydration. Agreeable to the same.
[2023-11-15 17:38] LABS: Bilirubin,Unconjugated 2.4 mg/dL (0.0-1.1); Total Bilirubin 2.8 mg/dL (0.2-1.3)
[2023-11-15] MEDS: HYDROXYUREA 500 MG CAP PO SCH (18:56)
--- NOTE | 2023-11-16 13:00 | P.PN ---
Subjective Progress Note Date: 11/16/23 Principal diagnosis: Sickle cell crisis In follow-up today patient reports his pain is well-managed, he is lacking some sleep. He denies any bleeding, chest pain, shortness of breath. No new pain to report. Objective - Vital Signs Vital signs: Vital Signs Temp 97.9 F 11/16/23 07:29 Pulse 79 11/16/23 07:29 Resp 17 11/16/23 07:29 BP 110/58 11/16/23 07:29 Pulse Ox 98 11/16/23 07:29 FiO2 Intake & Output 11/15/23 11/16/23 11/16/23 18:59 06:59 18:59 Other: Voiding Method Toilet # Voids 3 1 - Constitutional General appearance: Present: average body habitus, cooperative, no acute distress - EENT Eyes: Present: anicteric sclerae, EOMI ENT: Present: hearing grossly normal - Respiratory Details: Respirations even and unlabored at rest - Cardiovascular Details: Skin warm and dry to the touch, well-perfused - Peripheral edema leg Peripheral Edema: bilateral: None - Neurologic Neurologic: Present: CNII-XII intact - Musculoskeletal Musculoskeletal: Present: strength equal bilaterally - Psychiatric Psychiatric: Present: A&O x's 3, appropriate affect, intact judgment & insight - Labs CBC & Chem 7: 11/14/23 16:19 11/14/23 16:19 Labs: Abnormal Lab Results - Last 24 Hours (Table) 11/15/23 Range/Units 04:01 Total Bilirubin 2.8 H (0.2-1.3) mg/dL Unconjugated Bilirubin 2.4 H (0.0-1.1) mg/dL Assessment and Plan (1) Sickle cell anemia with crisis Current Visit: Yes Status: Acute Priority: High Code(s): D57.00 - HB-SS DISEASE WITH CRISIS, UNSPECIFIED SNOMED Code(s): 419745562 Plan: Sickle cell crisis -Pt receiving hydration, tolerating oral intake. -Pain medications adjusted yesterday, patient reports good pain control -Discussed pain mgmt with nursing yesterday. Encouraged discussions with patient so that he can be transition back to his oral pain meds as soon as tolerable. Discussed with patient today about transitioning back to his oral pain meds at home. -Medications for prevention of narcotic induced constipation ordered -No significant anemia, does not require transfusion at this time. -Hydrea resumed yesterday, patient tolerating well
[2023-11-16] MEDS ORDERED: oxyCODONE-APAP 10-325MG 1 EACH TAB ONE (22:12)
[2023-11-16] MEDS ORDERED: HYDROmorphone 1 MG/ML 1 ML SYRINGE ONE (23:35)
[2023-11-17] MEDS ORDERED: HYDROmorphone 1 MG/ML 1 ML SYRINGE ONE (02:44)
[2023-11-17 07:23] VITALS: BP 109/67; PULSE 99; RESP 15; TEMP 98
--- NOTE | 2023-11-17 09:53 | P.PN ---
Subjective Progress Note Date: 11/16/23 This is a 33-year-old male who presented to the emergency department with severe back and spinal pain. Patient follows with Dr. Alan hematology/oncology in the outpatient setting with history of sickle cell. Patient reports he takes Oxy at home and was unable to control the pain and was instructed to come to the emergency department for further evaluation. Patient was admitted under observation for intractable pain and sickle cell crisis. Hematology/oncology was placed on consult and medication adjustments including IV Dilaudid has been ordered. Patient's white count on admission is 7.6 with a hemoglobin of 9.5, MCV is elevated at 122 with MCH of 41.1, RDW 17.2, marked macrocytosis and retake count is elevated at 12.9. Sodium is 139 with a potassium of 4.3 and current creatinine is 0.68. Total bilirubin elevated at 2.7 which is chronic and actually improved from previously this year. Indirect bilirubin ordered and pending at this time. Troponins x 3 were negative and urinalysis is negative. Chest x-ray also done in the ER showing no acute cardiopulmonary process or disease. 11/16/2023 Patient is seen in follow-up today per nursing staff continues to request IV Dilaudid [id number] every 3 hours and initially last night was refusing again to take his scheduled Oxy and continue to proceed to tell nursing staff he will wait for the Dilaudid. Discussed with the patient again regarding the importance of pain management and breakthrough pain management as well as he matology expressing these procedures as well. Patient continues to report back pain although feels somewhat improved. Encouraged increase activity as tolerated. Patient is afebrile with no reports of chest pain or shortness of breath. Patient did report he had some chest pain on admission to the ER and troponins along with chest x-ray and EKG were negative. Patient is maintaining oxygen saturations above 90% on room air and appears comfortable on exam. at the bedside with questions and concerns that were answered. Review of systems: Constitutional: No reports of fatigue, fever, or chills Cardiovascular: No reports of chest pain or palpitations Respiratory: No reports of shortness of breath or cough GI: No reports of nausea, vomiting, or diarrhea : No reports of dysuria or retention Neurovascular: No reports of weakness or numbness All medications have been reviewed PHYSICAL EXAMINATION: GENERAL: The patient is a 33-year-old -Stateless male who is alert and patience ented x3, not in any acute distress. Well developed, well nourished. HEENT: Pupils are round and equally reacting to light. EOMI. No scleral icterus. No conjunctival pallor. Normocephalic, atraumatic. No pharyngeal erythema. No thyromegaly. CARDIOVASCULAR: S1 and S2 present. No murmurs, rubs, or gallops. PULMONARY: Diminished breath sounds bilaterally otherwise chest is clear to auscultation, no wheezing or crackles. ABDOMEN: Soft, nontender, nondistended, normoactive bowel sounds. No palpable organomegaly. MUSCULOSKELETAL: No joint swelling or deformity. EXTREMITIES: No cyanosis, clubbing, or pedal edema. NEUROLOGICAL: Gross neurological examination did not reveal any focal deficits. SKIN: No rashes. Assessment: Intractable back pain with history of sickle cell anemia follows with hematology outpatient Elevated total bilirubin although improved from previous readings, not sign ificantly elevated History of previous sickle cell crisis, does not appear to be in active sickle cell crisis at this time Chronic pain Continued ongoing nicotine dependence GI prophylaxis DVT prophylaxis Full code Plan: Patient seen and evaluated by hematology/oncology with adjustments to medica tions being made and home medications reviewed and resumed other than will hold Hydrea for now Patient being continued on IV Dilaudid and home Oxy has been resumed. Discussed with the patient the importance of continuing with chronic pain medications along with acute narcotics for pain management and control. Per nursing staff patient continues to refuse oxy at times and reports he will wait for the next dosing of Dilaudid Encouraged increase activity as tolerated Indirect bilirubin elevated as well Encouraged oral intake Will monitor overnight with possible discharge planning in the next 24 hours. This was discussed with hematology The impression and plan of care has been dictated by Klarissa Petersen, Nurse Practitioner as directed. Dr. Brianne MD I have performed a history and examination and MDM of this patient, discussed the same with the dictator, and agree with the dictator's assessment and plan as written ,documented as a scribe. Based on total visit time, I have performed more than 50% of the visit. Objective - Vital Signs Vital signs: Vital Signs Temp 97.9 F 11/16/23 07:29 Pulse 79 11/16/23 07:29 Resp 17 11/16/23 07:29 BP 110/58 11/16/23 07:29 Pulse Ox 98 11/16/23 07:29 FiO2 Intake & Output 11/15/23 11/16/23 11/16/23 18:59 06:59 18:59 Other: Voiding Method Toilet # Voids 3 1 - Labs CBC & Chem 7: 11/14/23 16:19 11/14/23 16:19 Labs: Abnormal Lab Results - Last 24 Hours (Table) 11/15/23 Range/Units 04:01 Total Bilirubin 2.8 H (0.2-1.3) mg/dL Unconjugated Bilirubin 2.4 H (0.0-1.1) mg/dL
--- NOTE | 2023-11-17 11:19 | P.PN ---
Subjective Progress Note Date: 11/17/23 Principal diagnosis: Sickle cell crisis In follow-up today patient reports his pain is well-managed, wants to try oral pain meds to see if he can manage at home. Denies any chest pain, shortness of breath, palpitations, joint pain or swelling. He is tolerating oral intake and is ambulatory Objective - Vital Signs Vital signs: Vital Signs Temp 98.0 F 11/17/23 07:23 Pulse 99 11/17/23 08:00 Resp 15 11/17/23 08:00 BP 109/67 11/17/23 07:23 Pulse Ox 93 L 11/17/23 07:23 FiO2 Intake & Output 11/16/23 11/17/23 11/17/23 18:59 06:59 18:59 Intake Total 2520 Balance 2520 Intake: Intake, IV Titration 900 Amount Sodium Chloride 0.9% 1, 900 000 ml @ 75 mls/hr IV . [id number] [facility]ANDNI Rx#:[id number] Oral 1620 Other: Voiding Method Toilet # Voids 3 - Constitutional General appearance: Present: average body habitus, cooperative, no acute distress - EENT Eyes: Present: anicteric sclerae, EOMI ENT: Present: hearing grossly normal - Respiratory Respiratory: bilateral: CTA - Cardiovascular Rhythm: regular Heart sounds: normal: S1, S2 Abnormal Heart Sounds: Absent: systolic murmur, diastolic murmur, rub, S3 Gallop, S4 Gallop, click, other - Peripheral edema leg Peripheral Edema: bilateral: None - Gastrointestinal General gastrointestinal: Present: soft - Neurologic Neurologic: Present: CNII-XII intact - Musculoskeletal Musculoskeletal: Present: strength equal bilaterally - Psychiatric Psychiatric: Present: A&O x's 3, appropriate affect, intact judgment & insight - Labs CBC & Chem 7: 11/14/23 16:19 11/14/23 16:19 Assessment and Plan (1) Sickle cell anemia with crisis Current Visit: Yes Status: Acute Priority: High Code(s): D57.00 - HB-SS DISEASE WITH CRISIS, UNSPECIFIED SNOMED Code(s): 013387699 Plan: Sickle cell crisis -Pt receiving hydration, tolerating oral intake, ambulating. Reporting improvements since admit and with treatment -Pt ready to transition to oral pain meds to see if he can manage at home. Case discussed with IM FORESTRY AIDE -Pt gets his pain meds from [facility]. He sees them next week. 7 day Rx sent to pt preferred pharmacy -Recommend ongoing medication for prevention of narcotic induced constipation ordered -No severe anemia, significant hemolysis. Does not require transfusion at this time. -Hydrea resumed, patient tolerating well. He will cont outpt. Dr ansariests: I have seen and examined pt, performed H&P, developed impression and plan of care. Discussed with dictator. Agree with documentation, dictated as a scribe.
[2023-11-17 13:01] LABS: Anisocytosis Slight; Basophils % (A) 0 %; Eosinophils # (A) 0.1 k/uL (0-0.7); Eosinophils % (A) 2 %; HCT 24.7 % (39.0-53.0); HGB 8.5 gm/dL (13.0-17.5); Hypochromasia Slight; Lymphocytes # (A) 3.2 k/uL (1.0-4.8); Lymphocytes % (A) 39 %; MCHC 34.4 g/dL (31.0-37.0); Macrocytosis Marked; Mean Platelet Volume 9.5; Monocytes # (A) 0.4 k/uL (0-1.0); Monocytes % (A) 4 %; Neutrophils # (A) 4.2 k/uL (1.3-7.7); Neutrophils % (A) 52 %; Platelet Count 227 k/uL (150-450); Poikilocytosis Slight; RBC 2.03 m/uL (4.30-5.90); RDW 16.6 % (11.5-15.5); WBC 8.1 k/uL (3.8-10.6)
[2023-11-17 13:25] LABS: ALT 24 U/L (4-49); AST 44 U/L (17-59); African American GFR (CKD) >90 (>60 ml/min/1.73 sqM); Albumin 3.9 g/dL (3.5-5.0); Albumin/Globulin Ratio 1.3; Alkaline Phosphatase 154 U/L (38-126); Anion Gap 5 mmol/L; Blood Urea Nitrogen 6 mg/dL (9-20); Carbon Dioxide 24 mmol/L (22-30); Chloride 110 mmol/L (98-107); Glucose 99 mg/dL (74-99); Non-African American GFR(CKD) >90 (>60 ml/min/1.73 sqM); Potassium 4.3 mmol/L (3.5-5.1); Sodium 139 mmol/L (137-145); Total Bilirubin 3.1 mg/dL (0.2-1.3); Total Protein 6.9 g/dL (6.3-8.2)
[2023-11-17 14:28] LABS: Sickle Cells Present
[2023-11-17 14:29] LABS: Ovalocytes Present; Target Cells Present
[2023-11-17 14:31] LABS: Polychromasia Present
--- NOTE | 2023-11-23 05:56 | P.DS ---
Providers Date of admission: 11/14/23 18:25 Expected date of discharge: 11/17/23 Attending physician: Gary Reardon Consults: 11/14/23 18:53 Consult Physician Urgent Consulting Provider: Da Alan Consult Reason/Comments: sickle cell Do you want consulting provider notified?: Yes, Notify in am Primary care physician: Da Alan MD Hospital Course: Final diagnosis Intractable back pain with history of sickle cell anemia follows with hematology outpatient Elevated total bilirubin although improved from previous readings, not significantly elevated History of previous sickle cell crisis, does not appear to be in active sickle cell crisis at this time Chronic pain Continued ongoing nicotine dependence GI prophylaxis DVT prophylaxis Full code Discharge disposition Patient is being discharged in a stable condition with guarded prognosis to home. Patient will follow-up with Dr. East in the outpatient setting upon discharge. Patient is to continue with close outpatient follow-up with his orthophoto tech/draftsman out of [facility] next week as scheduled. Total time taken is greater than 35 minutes. Hospital course This is a 33-year-old male who was recently admitted with intractable back pain with concerns of sickle cell crisis. Patient being closely monitored with hematology following maintained on high-dose IV Dilaudid along with his Oxy for pain management. Patient slowly improving showing clinical improvement and will be discharged home today. Please refer to hematology notes and patient also has been instructed to follow-up with his orthophoto tech/draftsman out of [facility] this week. Please refer to other consultation note for further HPI. Currently no reports of chest pain, shortness of breath, or palpitations. Patient is a febrile. No reports of nausea or vomiting and patient is tolerating diet. Patient will be discharged home today. Physical exam: Gen: This is a 33-year-old male who is awake, alert and oriented x 3, well- developed, well-nourished HEENT: Head is atraumatic, normocephalic. Pupils equal, round. Sclerae is anicteric. NECK: Supple. No JVD. No lymphadenopathy. No thyromegaly. LUNGS: Clear to auscultation. No wheezes or rhonchi. No intercostal retractions. HEART: Regular rate and rhythm. No murmur. ABDOMEN: Soft. Bowel sounds are present. No masses. No tenderness. EXTREMITIES: No pedal edema. No calf tenderness. NEUROLOGICAL: Patient is awake, alert and oriented x3. Cranial nerves 2 through 12 are grossly intact. Please refer to medication reconciliation sheet for a list of medications. The impression and plan of care has been dictated by Klarissa Petersen, Nurse Practitioner as directed. Dr. Brianne MD I have performed a history and examination and MDM of this patient, discussed the same with the dictator, and agree with the dictator's assessment and plan as written ,documented as a scribe. Based on total visit time, I have performed more than 50% of the visit. Patient Condition at Discharge: Fair Plan - Discharge Summary New Discharge Prescriptions: New polyethylene glycoL 3350 [Miralax] 17 gm PO HS PRN #30 packet PRN Reason: Constipation Sennosides-Docusate Sodium [Senokot-S] 1 each PO BID #60 tab Continue Folic Acid 1 mg PO DAILY Hydroxyurea [Hydrea] 1,000 mg PO DAILY Ibuprofen [Motrin] 400 mg PO Q8HR PRN 3 Days #12 tab PRN Reason: Pain oxyCODONE-APAP 10-325MG [Percocet 10-325 mg] 1 tab PO Q4H PRN PRN Reason: Pain Discharge Medication List Folic Acid 1 mg PO DAILY 05/20/23 [History] Hydroxyurea [Hydrea] 1,000 mg PO DAILY 05/20/23 [History] Ibuprofen [Motrin] 400 mg PO Q8HR PRN 3 Days #12 tab 05/24/23 [Rx] oxyCODONE-APAP 10-325MG [Percocet 10-325 mg] 1 tab PO Q4H PRN 11/14/23 [History] Sennosides-Docusate Sodium [Senokot-S] 1 each PO BID #60 tab 11/17/23 [Rx] polyethylene glycoL 3350 [Miralax] 17 gm PO HS PRN #30 packet 11/17/23 [Rx] Follow up Appointment(s)/Referral(s): Da Alan MD [Primary Care Provider] - 02/03/24 9:30 am Activity/Diet/Wound Care/Special Instructions: Activity limited until tolerated Follow-up with primary care provider on discharge Follow-up with [facility] specialist as scheduled Continue pain regimen along with bowel regimen to prevent opioid induced constipation Encouraged increase activity as tolerated and adequate fluid intake Discharge Disposition: HOME SELF-CARE
== END 2023-11-17 14:18 | disposition home or self-care (01) | DRG 347 ==
LOC: EC 15:27 → 4SSUR 18:24 → OBSVTOIN 18:25 → 4SSUR 19:52
PROVIDERS: ADMIT Hospitalist; ATTEND Hospitalist
DX: M54.9 Dorsalgia, unspecified (principal); D57.1 Sickle-cell disease without crisis; F17.200 Nicotine dependence, unspecified, uncomplicated; F19.11 Other psychoactive substance abuse, in remission; G89.29 Other chronic pain; I07.1 Rheumatic tricuspid insufficiency; N48.30 Priapism, unspecified; Z28.310 Unvaccinated for COVID-19; Z79.899 Other long term (current) drug therapy; Z88.1 Allergy status to other antibiotic agents
CPT/HCPCS: 96361; 96374; 96375; 96376; 99285

== ENCOUNTER 2024-06-05 18:56 | Inpatient (IN) | payer OTHER ==
[2024-06-05] MEDS: LACTATED RINGERS 1,000 ML IV SCH (19:48)
[2024-06-05] MEDS: HYDROmorphone 1 MG/ML 1 ML SYRINGE IVP STA ×3 (19:49→22:26)
[2024-06-05 20:13] LABS: HCT 33.1 % (39.0-53.0); HGB 10.8 gm/dL (13.0-17.5); MCHC 32.5 g/dL (31.0-37.0); MCV 132.4 fL (80.0-100.0); Macrocytosis Marked; Mean Platelet Volume 10.1; Platelet Count 242 k/uL (150-450); Reticulocyte % 9.4 % (0.5-2.0)
--- NOTE | 2024-06-05 20:13 | ED ---
Back Pain HPI - General Chief Complaint: Back Pain/Injury Stated Complaint: sickle pain Time Seen by Provider: 06/05/24 19:16 Source: patient Limitations: no limitations - History of Present Illness Initial Comments: 34-year-old male with history of sickle cell anemia presenting with chief complaint of abdominal and back pain. Patient reports the pain has been ongoing for last 2 days. It is a sharp pain located around the lower ribs that wraps into the back. It feels as though there is a ring around him. No loss of bowel or bladder control or saddle paresthesia. No nausea or vomiting. No diarrhea. He is having some chest discomfort. No difficulty breathing. He has been taking ibuprofen and Percocet without relief. States that weather changes can cause a sickle cell flareup for him. No fever. No injury or trauma. - Related Data Home Medications Medication Instructions Recorded Confirmed Folic Acid 1 mg PO DAILY 05/20/23 06/06/24 Hydroxyurea [Hydrea] 1,500 mg PO DAILY 05/20/23 06/06/24 oxyCODONE-APAP 10-325MG [Percocet 1 tab PO Q6H PRN 11/14/23 06/06/24 10-325 mg] Ibuprofen [Motrin Ib] 400 - 800 mg PO Q6H PRN 06/06/24 06/06/24 Pregabalin [Lyrica] 75 mg PO HS 06/06/24 06/06/24 Allergies Allergy/AdvReac Type Severity Reaction Status Date / Time cefazolin Allergy Rash/Hives Verified 06/06/24 07:23 Review of Systems ROS Statement: Those systems with pertinent positive or pertinent negative responses have been documented in the HPI. ROS Other: All systems not noted in ROS Statement are negative. Past Medical History Past Medical History: Blood Disorder Additional Past Medical History / Comment(s): sickle cell History of Any Multi-Drug Resistant Organisms: None Reported Past Surgical History: Cholecystectomy Additional Past Surgical History / Comment(s): 2011 cholecystectomy Past Anesthesia/Blood Transfusion Reactions: No Reported Reaction Past Psychological History: No Psychological Hx Reported Smoking Status: Current every day smoker Past Alcohol Use History: None Reported Past Drug Use History: None Reported General Exam Limitations: no limitations General appearance: alert, in no apparent distress Head exam: Present: atraumatic, normocephalic, normal inspection Eye exam: Present: normal appearance, EOMI Neck exam: Present: normal inspection. Absent: meningismus Respiratory exam: Present: normal lung sounds bilaterally. Absent: respiratory distress, wheezes, rales, rhonchi, stridor Cardiovascular Exam: Present: regular rate, normal rhythm, normal heart sounds. Absent: systolic murmur, diastolic murmur, rubs, gallop, clicks GI/Abdominal exam: Present: soft. Absent: distended, tenderness, guarding, rebound, rigid Extremities exam: Present: normal inspection Neurological exam: Present: alert, oriented X3 Psychiatric exam: Present: normal affect, normal mood Skin exam: Present: warm, dry, normal color Course Vital Signs 06/05/24 06/05/24 06/06/24 19:03 22:45 00:12 Temperature 98.4 F Pulse Rate 109 H 82 106 H Respiratory 18 16 16 Rate Blood Pressure 153/89 118/62 120/60 O2 Sat by Pulse 99 96 95 Oximetry Medical Decision Making - Medical Decision Making Was pt. sent in by a medical professional or institution (, PA, DISCHARGE PLANNER, urgent care, hospital, or detention...) When possible be specific @ -No Did you speak to anyone other than the patient for history (EMS, parent, family, police, friend...)? What history was obtained from this source @ -No Did you review nursing and triage notes (agree or disagree)? Why? @ -I reviewed and agree with nursing and triage notes Were old charts reviewed (outside hosp., previous admission, EMS record, old EKG, old radiological studies, urgent care reports/EKG's, detention records)? Report findings @ -No old charts were reviewed Differential Diagnosis (chest pain, altered mental status, abdominal pain women, abdominal pain men, vaginal bleeding, weakness, fever, dyspnea, syncope, headache, dizziness, GI bleed, back pain, seizure, CVA, palpatations, mental health, musculoskeletal)? @ -Differential Musculoskeletal Muscular strain, contusion, ligament sprain, fracture, arthritis, septic arthri tis, bursitis, cellulitis, muscle spasm, nerve compression, DVT, arterial occlusion, herpes zoster, electrolyte abnormality, tumor.... This is not meant to be in all inclusive list EKG interpreted by me (3pts min.). @ -As above X-rays interpreted by me (1pt min.). @ -Chest x-ray shows no acute process. KUB x-ray shows nonspecific bowel gas pattern CT interpreted by me (1pt min.). @ -None done U/S interpreted by me (1pt. min.). @ -None done What testing was considered but not performed or refused? (CT, X-rays, U/S, labs)? Why? @ -None What meds were considered but not given or refused? Why? @ -None Did you discuss the management of the patient with other professionals (professionals i.e. , PA, DISCHARGE PLANNER, lab, RT, psych nurse, social science instructor, astrobiologist, teacher, planned giving officer, manager of case)? Give summary @ -Spoke with Dr. Medina accepts admission Was smoking cessation discussed for >3mins.? @ -No Was critical care preformed (if so, how long)? @ -No Were there social determinants of health that impacted care today? How? (Homelessness, low income, unemployed, alcoholism, drug addiction, transportation, low edu. Level, literacy, decrease access to med. care, intermediate, rehab)? @ -No Was there de-escalation of care discussed even if they declined (Discuss DNR or withdrawal of care, Hospice)? DNR status @ -No What co-morbidities impacted this encounter? (DM, HTN, Smoking, COPD, CAD, Cancer, CVA, ARF, Chemo, Hep., AIDS, mental health diagnosis, sleep apnea, morbid obesity)? @ -Sickle cell anemia Was patient admitted / discharged? Hospital course, mention meds given and route, prescriptions, significant lab abnormalities, going to OR and other pertinent info. @ -34-year-old male with history of sickle cell presenting with chief complaint of back pain. Patient is having pain in his lower ribs and back. No red flag symptoms. History and physical examination are conducted. As expected reticulocyte count is elevated at 9.4. Hemoglobin 10.8. Negative troponin 0.023. Chest x-ray and KUB x-ray showed no acute process. Patient is treated with IV fluids and multiple rounds of pain medications. Patient reports continued pain. He will be admitted for sickle cell crisis and pain control. Patient is agreeable with this plan. I discussed this case with my attending Dr Tiffanie Landis Undiagnosed new problem with uncertain prognosis? @ -No Drug Therapy requiring intensive monitoring for toxicity (Heparin, Nitro, Insulin, Cardizem)? @ -No Were any procedures done? @ -No Diagnosis/symptom? @ -Sickle cell crisis Acute, or Chronic, or Acute on Chronic? @ -Acute on chronic Uncomplicated (without systemic symptoms) or Complicated (systemic symptoms)? @ -Complicated Side effects of treatment? @ -No Exacerbation, Progression, or Severe Exacerbation? @ -No Poses a threat to life or bodily function? How? (Chest pain, [place], [place], pneumonia, PE, COPD, DKA, ARF, appy, cholecystitis, CVA, Diverticulitis, Homicidal, Suicidal, threat to staff... and all critical care pts) Potential - Lab Data Result diagrams: 06/06/24 05:12 06/06/24 05:12 Lab Results 06/05/24 06/05/24 06/05/24 Range/Units 19:47 19:47 19:47 WBC 7.0 (3.8-10.6) k/uL RBC 2.50 L (4.30-5.90) m/uL Hgb 10.8 L (13.0-17.5) gm/dL Hct 33.1 L (39.0-53.0) % MCV 132.4 H (80.0-100.0) fL MCH 43.0 H (25.0-35.0) pg MCHC 32.5 (31.0-37.0) g/dL RDW 16.0 H (11.5-15.5) % Plt Count 242 (150-450) k/uL MPV 10.1 Neutrophils % (Manual) 32 % Lymphocytes % (Manual) 62 % Monocytes % (Manual) 7 % Eosinophils % (Manual) 1 % Neutrophils # (Manual) 2.24 (1.3-7.7) k/uL Lymphocytes # (Manual) 4.34 (1.0-4.8) k/uL Monocytes # (Manual) 0.49 (0-1.0) k/uL Eosinophils # (Manual) 0.07 (0-0.7) k/uL Nucleated RBCs 10 H (0-0) /100 WBC Manual Slide Review Performed Large Platelets Present Polychromasia Present Macrocytosis Marked A Target Cells Present Retic Count 9.4 H (0.5-2.0) % Sodium 137 (137-145) mmol/L Potassium 4.0 (3.5-5.1) mmol/L Chloride 100 (98-107) mmol/L Carbon Dioxide 29 (22-30) mmol/L Anion Gap 8 mmol/L BUN 5 L (9-20) mg/dL Creatinine 0.66 (0.66-1.25) mg/dL Est GFR (CKD-EPI)AfAm >90 (>60 ml/min/1.73 sqM) Est GFR (CKD-EPI)NonAf >90 (>60 ml/min/1.73 sqM) Glucose 121 H (74-99) mg/dL Plasma Lactic Acid Layo 1.1 (0.7-2.0) mmol/L Calcium 9.7 (8.4-10.2) mg/dL Total Bilirubin 1.5 H (0.2-1.3) mg/dL AST 38 (17-59) U/L ALT 40 (4-49) U/L Alkaline Phosphatase 139 H (38-126) U/L Troponin I (0.000-0.034) ng/mL Total Protein 7.4 (6.3-8.2) g/dL Albumin 4.5 (3.5-5.0) g/dL Lipase 22 L (23-300) U/L 06/05/24 Range/Units 19:47 WBC (3.8-10.6) k/uL RBC (4.30-5.90) m/uL Hgb (13.0-17.5) gm/dL Hct (39.0-53.0) % MCV (80.0-100.0) fL MCH (25.0-35.0) pg MCHC (31.0-37.0) g/dL RDW (11.5-15.5) % Plt Count (150-450) k/uL MPV Neutrophils % (Manual) % Lymphocytes % (Manual) % Monocytes % (Manual) % Eosinophils % (Manual) % Neutrophils # (Manual) (1.3-7.7) k/uL Lymphocytes # (Manual) (1.0-4.8) k/uL Monocytes # (Manual) (0-1.0) k/uL Eosinophils # (Manual) (0-0.7) k/uL Nucleated RBCs (0-0) /100 WBC Manual Slide Review Large Platelets Polychromasia Macrocytosis Target Cells Retic Count (0.5-2.0) % Sodium (137-145) mmol/L Potassium (3.5-5.1) mmol/L Chloride (98-107) mmol/L Carbon Dioxide (22-30) mmol/L Anion Gap mmol/L BUN (9-20) mg/dL Creatinine (0.66-1.25) mg/dL Est GFR (CKD-EPI)AfAm (>60 ml/min/1.73 sqM) Est GFR (CKD-EPI)NonAf (>60 ml/min/1.73 sqM) Glucose (74-99) mg/dL Plasma Lactic Acid Layo (0.7-2.0) mmol/L Calcium (8.4-10.2) mg/dL Total Bilirubin (0.2-1.3) mg/dL AST (17-59) U/L ALT (4-49) U/L Alkaline Phosphatase (38-126) U/L Troponin I 0.023 (0.000-0.034) ng/mL Total Protein (6.3-8.2) g/dL Albumin (3.5-5.0) g/dL Lipase (23-300) U/L Disposition Clinical Impression: Sickle cell anemia with crisis Disposition: ADMITTED IP TO THIS HOSP Condition: Fair
[2024-06-05 20:16] LABS: ALT 40 U/L (4-49); AST 38 U/L (17-59); African American GFR (CKD) >90 (>60 ml/min/1.73 sqM); Albumin 4.5 g/dL (3.5-5.0); Alkaline Phosphatase 139 U/L (38-126); Anion Gap 8 mmol/L; Blood Urea Nitrogen 5 mg/dL (9-20); Calcium 9.7 mg/dL (8.4-10.2); Carbon Dioxide 29 mmol/L (22-30); Chloride 100 mmol/L (98-107); Glucose 121 mg/dL (74-99); Lipase 22 U/L (23-300); Non-African American GFR(CKD) >90 (>60 ml/min/1.73 sqM); Sodium 137 mmol/L (137-145); Total Bilirubin 1.5 mg/dL (0.2-1.3); Total Protein 7.4 g/dL (6.3-8.2)
--- NOTE | 2024-06-05 20:21 | XR ---
EXAMINATION TYPE: XR chest 2V DATE OF EXAM: 06/05/2024 8:12 PM COMPARISON: Multiple prior chest radiographs, most recently dated 05/02/2024. CLINICAL INDICATION: Male, 34 years old with history of pain; [facility] TECHNIQUE: XR chest 2V Frontal and lateral views of the chest. FINDINGS: Lungs/Pleura: There is no evidence of pleural effusion, focal consolidation, or pneumothorax. Pulmonary vascularity: Unremarkable. Heart/mediastinum: Cardiomediastinal silhouette is unremarkable. Musculoskeletal: No acute osseous pathology. Other findings: None IMPRESSION: No acute cardiopulmonary disease/process. [facility], , 06/05/2024 8:19 PM
--- NOTE | 2024-06-05 20:22 | XR ---
EXAMINATION TYPE: XR KUB DATE OF EXAM: 06/05/2024 8:12 PM COMPARISON: None. CLINICAL INDICATION: Male, 34 years old with history of pain; [facility], pain TECHNIQUE: One radiographic view of the abdomen was obtained. FINDINGS: The bowel gas pattern is nonspecific without dilated loops of small or large bowel. . Fecal material and gas are demonstrated throughout the colon and rectum. There is no evidence for organomegaly or pneumoperitoneum. The osseous structures are intact. No ab normal calcifications are present. Previous cholecystectomy noted. IMPRESSION: Nonspecific bowel gas pattern without radiographic evidence for acute process. [facility], , 06/05/2024 8:20 PM
[2024-06-05 21:36] LABS: Eosinophils # (M) 0.07 k/uL (0-0.7); Lymphocytes # (M) 4.34 k/uL (1.0-4.8); Monocytes # (M) 0.49 k/uL (0-1.0); Neutrophils # (M) 2.24 k/uL (1.3-7.7); Neutrophils % (M) 32 %; Nucleated Red Blood Cells 10 /100 WBC (0-0); Polychromasia Present; Total Cells Counted 200
[2024-06-05 21:37] LABS: Large Platelets Present; Target Cells Present
[2024-06-05] MEDS ORDERED: KETOROLAC 15 MG/ML 1 ML VIAL IVP PRN (22:10)
[2024-06-05] MEDS ORDERED: NALOXONE 0.4 MG/ML 1 ML VIAL IV PRN (22:10)
[2024-06-05] MEDS ORDERED: IBUPROFEN 400 MG TAB PO PRN (22:10)
[2024-06-05] MEDS: SODIUM CHLORIDE 0.9% 1,000 ML IV SCH (22:26)
--- NOTE | 2024-06-05 23:28 | P.HPIM ---
History of Present Illness H&P Date: 06/05/24 Patient is a 34-year-old male with a history of sickle cell anemia presenting with abdominal and back pain. Patient reports the pain has been ongoing for the last 2 days. He describes it as a constant, sharp pain, located at the lower ribs that radiates around to his back. Patient reports pain is usually alleviated by bed rest, heating pads, Percocet, but has not been working lately. States that pain is made worse on exertion and strenuous activity. Patient states he is having mild, intermit tent, dull, non-radiating chest discomfort. His last crisis was 03/14/2024. Patient admits to nonproductive cough for the past few weeks due to being sick. Admits to non-bloody emesis in the mornings for the past couple days. Patient denies fever, chills headache, vision changes, shortness of breath, urinary symptoms, trauma. EKG independently interpreted displaying sinus rhythm, vent rate 85 bpm, QTc 398 ms CXR independently interpreted displaying no acute cardiopulmonary process KUB displaying nonspecific gas pattern without radiologist evidence for acute process T 98.4 F, MS 109, RR 18, BP 153/89, O2 sat 99% on room air Review of systems: Pertinent positives and negatives as discussed in HPI, a complete review of systems was performed and all other systems are negative. Physical examination: Vital signs reviewed General: non toxic, no distress, appears at stated age, normal weight Derm: no unusual rashes/lesions, warm Head: atraumatic, normocephalic, symmetric Eyes: EOMI, anicteric sclera, pupils equal round reactive to light ENT: Nose and ears atraumatic Mouth: no lip lesion, mucus membranes moist Cardiovascular: S1S2 reg, no murmur, positive dorsalis pedis pulse bilateral, no edema Lungs: CTA bilateral, no rhonchi, no rales, no accessory muscle use Abdominal: soft, nontender to palpation, no guarding Ext: muscle strength 5 out of 5 in all 4 extremities grossly, no gross muscle atrophy Neuro: CN II-XI grossly intact, no gross focal neuro deficits Psych: Alert, oriented to person, place, and time Assessment/Plan: Patient is a 34-year-old male with a history of sickle cell anemia presenting with abdominal and back pain. ED documentation reviewed. Discussed with patient. The patient is admitted with an anticipated greater than 2 midnight stay for evaluation of sickle cell crisis. #. Sickle cell crisis Hgb 10.8, MCV 132, platelet 242, reticulocyte count 9.4%, neutrophils 2.24, total bili 1.5 Patient denies any chest pain, fever, shortness of breath, cough, troponin 0.023continue to trend CXR independently interpreted displaying no acute cardiopulmonary process KUB displaying nonspecific gas pattern without radiologist evidence for acute process Pain management: Dilaudid 1 mg IVP q3hr prn, motrin 400 mg PO q6hr prn, torodol 15 mg IVP q6hr prn, will switch dilaudid to ANIMAL SURGEON pump Resume hydroxyurea at 1500 mg PO qd DC Normal saline at 75 cc an hour, switch to D5 0.45 at 125 cc per hour UA, coagulation panel pending Hematology consulted DVT prophylaxis: Lovenox 40 SQ daily CODE STATUS: FULL CODE Anticipated discharge place: pending clinical course Cecil Salas MD PGY-1 IM Dictation was produced using [employer] dictation software. please excuse any grammatical, word or spelling errors. I have seen and evaluated the patient today. I Discussed the case with the resident and agree with the resident's findings I edited the assessment and plan as necessary as documented in the resident's note. Past Medical History Past Medical History: Blood Disorder Additional Past Medical History / Comment(s): sickle cell History of Any Multi-Drug Resistant Organisms: None Reported Past Surgical History: Cholecystectomy Additional Past Surgical History / Comment(s): 2010 cholecystectomy Past Anesthesia/Blood Transfusion Reactions: No Reported Reaction Past Psychological History: No Psychological Hx Reported Smoking Status: Current every day smoker Past Alcohol Use History: None Reported Past Drug Use History: None Reported Medications and Allergies Home Medications Medication Instructions Recorded Confirmed Type Folic Acid 1 mg PO DAILY 05/20/23 11/14/23 History Hydroxyurea [Hydrea] 1,000 mg PO DAILY 05/20/23 11/14/23 History Ibuprofen [Motrin] 400 mg PO Q8HR PRN 3 Days #12 tab 05/24/23 11/14/23 Rx oxyCODONE-APAP 10-325MG [Percocet 1 tab PO Q4H PRN 11/14/23 11/14/23 History 10-325 mg] Sennosides-Docusate Sodium 1 each PO BID #60 tab 11/17/23 Rx [Senokot-S] polyethylene glycoL 3350 [Miralax] 17 gm PO HS PRN #30 packet 11/17/23 Rx Allergies Allergy/AdvReac Type Severity Reaction Status Date / Time cefazolin Allergy Rash/Hives Verified 06/05/24 19:05 Physical Exam Vitals: Vital Signs Temp Pulse Resp BP Pulse Ox 06/05/24 19:03 98.4 F 109 H 18 153/89 99 Intake and Output 06/05/24 06/05/24 06/05/24 06:59 14:59 22:59 Other: Weight 72.575 kg Results CBC & Chem 7: 06/05/24 19:47 06/06/24 05:12 Labs: Abnormal Lab Results - Last 24 Hours (Table) 06/05/24 06/05/24 Range/Units 19:47 19:47 RBC 2.50 L (4.30-5.90) m/uL Hgb 10.8 L (13.0-17.5) gm/dL Hct 33.1 L (39.0-53.0) % MCV 132.4 H (80.0-100.0) fL MCH 43.0 H (25.0-35.0) pg RDW 16.0 H (11.5-15.5) % Nucleated RBCs 10 H (0-0) /100 WBC Macrocytosis Marked A Retic Count 9.4 H (0.5-2.0) % BUN 5 L (9-20) mg/dL Glucose 121 H (74-99) mg/dL Total Bilirubin 1.5 H (0.2-1.3) mg/dL Alkaline Phosphatase 139 H (38-126) U/L Lipase 22 L (23-300) U/L
[2024-06-05 23:53] LABS: INR 1.1 (<1.2); Partial Thromboplastin Time 25.9 sec (22.0-30.0)
[2024-06-06] MEDS: HYDROmorphone 1 MG/ML 1 ML SYRINGE IVP PRN (00:11)
[2024-06-06 05:41] LABS: ALT 34 U/L (4-49); African American GFR (CKD) >90 (>60 ml/min/1.73 sqM); Albumin 3.4 g/dL (3.5-5.0); Albumin/Globulin Ratio 1.3; Anion Gap 6 mmol/L; Blood Urea Nitrogen 6 mg/dL (9-20); Calcium 9.1 mg/dL (8.4-10.2); Carbon Dioxide 23 mmol/L (22-30); Chloride 110 mmol/L (98-107); Globulin 2.6 g/dL; Glucose 87 mg/dL (74-99); Non-African American GFR(CKD) >90 (>60 ml/min/1.73 sqM); Sodium 139 mmol/L (137-145); Total Bilirubin 1.9 mg/dL (0.2-1.3)
[2024-06-06 05:53] LABS: AST 45 U/L (17-59); Alkaline Phosphatase 119 U/L (38-126); Potassium 4.3 mmol/L (3.5-5.1)
[2024-06-06] MEDS ORDERED: NALOXONE 0.4 MG/ML 1 ML VIAL IV PRN (05:58)
[2024-06-06] MEDS ORDERED: ONDANSETRON 4 MG/2 ML VIAL IVP PRN (05:58)
[2024-06-06 06:22] LABS: Anisocytosis Slight; HCT 27.9 % (39.0-53.0); MCHC 32.4 g/dL (31.0-37.0); MCV 134.3 fL (80.0-100.0); Macrocytosis Marked; Mean Platelet Volume 10.6; Platelet Count 181 k/uL (150-450); RBC 2.08 m/uL (4.30-5.90); RDW 16.1 % (11.5-15.5)
[2024-06-06 06:25] LABS: MCH 43.5 pg (25.0-35.0)
[2024-06-06] MEDS: DEXTROSE 5%-0.45% NACL 1,000 ML IV SCH (06:26)
[2024-06-06] MEDS: HYDROmorphone PCA 10 MG/50 ML BAG IV PRN (07:24)
[2024-06-06 07:43] LABS: Anisocytosis (M) Present; Lymphocytes # (M) 3.53 k/uL (1.0-4.8); Monocytes # (M) 0.56 k/uL (0-1.0); Neutrophils # (M) 2.17 k/uL (1.3-7.7); Neutrophils % (M) 35 %; Nucleated Red Blood Cells 6 /100 WBC (0-0); Poikilocytosis (M) Present; Total Cells Counted 200; WBC 6.2 k/uL (3.8-10.6)
[2024-06-06 08:13] LABS: Appearance,Urine Clear (Clear); Bilirubin,Urine Negative (Negative); Blood,Urine Negative (Negative); Color,Urine Colorless; Glucose,Urine (UA) Negative (Negative); Ketones,Urine Negative (Negative); Leukocyte Esterase,Urine Negative (Negative); Nitrite,Urine Negative (Negative); Protein,Urine Negative (Negative); Specific Gravity,Urine 1.006 (1.001-1.035); Urobilinogen,Urine <2.0 mg/dL (<2.0)
[2024-06-06] MEDS: ENOXAPARIN 40 MG/0.4 ML SYRINGE SQ SCH (08:34)
[2024-06-06] MEDS: FOLIC ACID 1 MG TAB PO SCH (08:35)
[2024-06-06] MEDS: HYDROXYUREA 500 MG CAP PO SCH (08:35)
--- NOTE | 2024-06-06 14:30 | P.PN ---
Subjective Progress Note Date: 06/06/24 Hospital course: Patient is a pleasant 34-year-old male with a past medical history of sickle cell anemia and nicotine dependence. Presented to the hospital on 06/05/2024 with concerns of sickle cell crisis with reports of diffuse abdominal pain and lower back pain. Patient reports the symptoms consistent with previous sickle cell crisis with last reported sickle cell crisis being 03/14/24. Upon arrival to our facility, patient underwent evaluation in the emergency department. Vital signs upon arrival show blood pressure 153/89, heart rate 109, respiratory rate 18, temp 98.4 F, and SpO2 of 99% on room air. EKG completed showing sinus mechanism at 85 bpm. Chest x-ray negative for acute cardiopulmonary process. KUB completed showing nonspecific bowel gas pattern without radiographic evidence for acute process. Labs completed and reviewed. CBC showing macrocytic hyperchromic anemia with hemoglobin of 10.8, MCV of 132.4, MCH of 43.0, and RDW of 16.0. Nucleated RBCs elevated at 10. Retic count elevated at 9.4. Coagulation profile normal finding and D-dimer negative at 0.59. BMP unremarkable. Blood glucose 121. Lactic acid 1.1. Liver profile showing elevated total bili of 1.5 and alkaline phosphatase of 139. Troponin was 0.023. Lipase 22. Urinalysis negative for blood or infection. Patient admitted under our services with consultation to hematology. Troponins were trended overnight resulting at 0.023, 0.018, 0.017, and 0.019. Physical exam: Patient seen and fully evaluated at bedside this morning. He currently reports pain is mostly controlled with Dilaudid ENVIRONMENTAL SUSTAINABILITY MANAGER. Patient reports mild pain to right lower back currently rated 2-3 out of 10 at this time. He denies having any chest pain, palpitations, shortness of breath and denies any other complaints at this time. He does report overnight and compliance monitor experiencing pain in his right thigh but states that is currently resolved. Vital signs reviewed and stable. General: Nontoxic, no distress and appears stated age. Derm: Skin warm and dry, normal coloration for ethnicity. Head: Atraumatic, normocephalic and symmetric. Eyes: EOM's intact, no lid lag, and anicteric sclera Mouth: no lip lesions, mucus membranes moist Cardiovascular: regular rate and rhythm with normal S1S2, no murmur, positive posterior tibial pulses bilaterally, and cap refill < 2 seconds. Lungs: Respirations even, regular, and unlabored on room air. Lungs CTA bilaterally, no rhonchi, no rales, no wheezing, and no accessory muscle usage. Abdominal: soft, nontender to palpation, no guarding, no appreciable organ omegaly Ext: ROM intact. No gross muscle atrophy, no edema, no contractures Neuro: Speech clear, face symmetrical and CN II-XII grossly intact with no noted focal neuro deficits Psych: Alert and oriented to person, place, time, and situation. Appropriate and pleasant affect. Assessment and Plan of Care: Acute sickle cell crisis Macrocytic hyperchromic hemolytic anemia -Hemoglobin decreasing from 10.8 down to 9.0 this morning with MCV of 134.3, MCH of 43.5, and RDW of 16.1. Nucleated RBCs elevated at 6 and LDH elevated at 335. Haptoglobin also ordered but is currently pending. -Hematology consulted, appreciate recommendations. -Continue with aggressive IV fluid hydration with lactated Ringer at 750 cc/h. -Continue pain management with Dilaudid ENVIRONMENTAL SUSTAINABILITY MANAGER in addition to as needed Toradol 15 mg IVP every 6 hours as needed.. -Continue hydroxyurea 1500 mg daily. -Continued close monitoring of CBC with differential daily. Transfuse as needed for hemoglobin less than 7. -Patient to remain on continuous telemetry monitoring. -Recommend smoking cessation and educated patient on risks of cotinued nicotine use including cardiovascular complications including hypertension and tachycardia with continued nicotine use and sickle cell. Data and imaging reviewed: -Labs reviewed. CBC showing microcytic anemia with hemoglobin of 9.0, MCV 134.3, MCH of 43.5, and RDW of 16.1. Nucleated RBCs remain elevated at 6 with marked macrocytosis. BMP showing hyperchloremia chloride of 110. Blood glucose 87. Liver profile showing elevated total bili of 1.9. LDH 335. Total protein 6.0 and albumin of 3.4. Troponins were trended resulting at 0.023, 0.018, 0.017, and 0.019. -Vital signs reviewed. Blood pressure 116/69, heart rate 70, respiratory rate 16, temp 98.0 F, and SpO2 of 96% on room air. Observation status changed to inpatient admission at this time due to sickle cell crisis causing hemolytic anemia as evidenced by decreased hemoglobin from 10.8 down to 9.0, elevated nucleated RBCs, and elevated LDH with haptoglobin pending. CODE STATUS: Full code DVT prophylaxis: SCDs Anticipated discharge date: Pending clinical course Anticipated discharge place: Home Patient was seen independently by Nurse Pracitioner. This document was prepared using [employer] dictation software. Please allow for errors in dental technician apprentice, while rare they do occur. Kris Peacock BUNG DRIVER rendered care for this patient independently, reviewed the findings and plan as documented in the note above and agree with plan. I did not physically speak with or examine the patient on this date. Objective - Vital Signs Vital signs: Vital Signs Temp 98.0 F 06/06/24 07:00 Pulse 70 06/06/24 07:00 Resp 16 06/06/24 07:00 BP 116/69 06/06/24 07:00 Pulse Ox 96 06/06/24 07:00 FiO2 Intake & Output 06/05/24 06/06/24 06/06/24 18:59 06:59 18:59 Intake Total 1014 Balance 1014 Weight 72.575 kg Intake: Oral 1014 Other: # Voids 1 - Labs CBC & Chem 7: 06/06/24 05:12 06/06/24 05:12 Labs: Abnormal Lab Results - Last 24 Hours (Table) 06/05/24 06/05/24 06/06/24 Range/Units 19:47 19:47 05:12 RBC 2.50 L 2.08 L (4.30-5.90) m/uL Hgb 10.8 L 9.0 L D (13.0-17.5) gm/dL Hct 33.1 L 27.9 L (39.0-53.0) % MCV 132.4 H 134.3 H (80.0-100.0) fL MCH 43.0 H 43.5 H (25.0-35.0) pg RDW 16.0 H 16.1 H (11.5-15.5) % Nucleated RBCs 10 H 6 H (0-0) /100 WBC Macrocytosis Marked A Marked A Retic Count 9.4 H (0.5-2.0) % Chloride (98-107) mmol/L BUN 5 L (9-20) mg/dL Creatinine (0.66-1.25) mg/dL Glucose 121 H (74-99) mg/dL Total Bilirubin 1.5 H (0.2-1.3) mg/dL Alkaline Phosphatase 139 H (38-126) U/L Total Protein (6.3-8.2) g/dL Albumin (3.5-5.0) g/dL Lipase 22 L (23-300) U/L / Range/Units 05:12 RBC (4.30-5.90) m/uL Hgb (13.0-17.5) gm/dL Hct (39.0-53.0) % MCV (80.0-100.0) fL MCH (25.0-35.0) pg RDW (11.5-15.5) % Nucleated RBCs (0-0) /100 WBC Macrocytosis Retic Count (0.5-2.0) % Chloride 110 H (98-107) mmol/L BUN 6 L (9-20) mg/dL Creatinine 0.57 L (0.66-1.25) mg/dL Glucose (74-99) mg/dL Total Bilirubin 1.9 H (0.2-1.3) mg/dL Alkaline Phosphatase (38-126) U/L Total Protein 6.0 L (6.3-8.2) g/dL Albumin 3.4 L (3.5-5.0) g/dL Lipase (23-300) U/L
--- NOTE | 2024-06-06 15:13 | P.CONS ---
History of Present Illness - Reason for Consult Consult date: 06/06/24 sickel cell crisis Requesting physician: Yoav Mccullough - Chief Complaint back pain - History of Present Illness Mr. Kemp is a 33-year-old gentleman with a past medical history significant for sickle cell disease complicated by acute pain crises. He established care locally with Dr. Flaca Alan in 2022 after he was admitted for an acute pain crisis at [facility] and seen in consult, 06/10/2022. This slowly improved with hydration and pain management. He did note palpitations during his admission, with echo performed on 06/11/2022 noting ejection fraction of 60 to 65% with mild concentric left ventricular hypertrophy along with mild to moderate tricuspid regurgitation. There was no evidence of pulmonary hypertension. Patient had been following with [facility] after his episode of acute chest syndrome in 2010. He was placed on Hydrea and was having monthly monthly exchange transfusions. He had to have his port removed though following an infection. Patient has a remote history of abuse of illicit drugs. He has overall been doing well, he may have 2-3 pain crises a year, usually during seasonal changes and times of extreme stress. He has a history of additional complications from sickle cell including acute chest syndrome as well as priapism Patient more recently has been on hydroxyurea, and taking it regularly. He was seen in the office just a few weeks ago and was having some emotional distress. He is now admitted for pain crises. Labs indicative of sickle cell crisis, hemolysis. Hemoglobin 9, hematocrit 27.9, retic 9.4, LDH 335, bilirubin 1.9. Macrocytosis 134-secondary to Hydrea use. KUB x-ray reporting a nonspecific bowel pattern without radiographic evidence for an acute process. There is fecal material and gas throughout the colon and rectum, no evidence of organomegaly or pneumoperitoneum. Chest x-ray impression, no acute cardiopulmonary process. 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 Patient states he is feeling better since admission Review of Systems 10 point review of systems is negative except as stated in HPI Past Medical History Past Medical History: Blood Disorder Additional Past Medical History / Comment(s): sickle cell History of Any Multi-Drug Resistant Organisms: None Reported Past Surgical History: Cholecystectomy Additional Past Surgical History / Comment(s): 2010 cholecystectomy Past Anesthesia/Blood Transfusion Reactions: No Reported Reaction Past Psychological History: No Psychological Hx Reported Smoking Status: Current every day smoker Past Alcohol Use History: None Reported Past Drug Use History: None Reported Medications and Allergies Home Medications Medication Instructions Recorded Confirmed Type Folic Acid 1 mg PO DAILY 05/20/23 06/06/24 History Hydroxyurea [Hydrea] 1,500 mg PO DAILY 05/20/23 06/06/24 History oxyCODONE-APAP 10-325MG [Percocet 1 tab PO Q6H PRN 11/14/23 06/06/24 History 10-325 mg] Ibuprofen [Motrin Ib] 400 - 800 mg PO Q6H PRN 06/06/24 06/06/24 History Pregabalin [Lyrica] 75 mg PO HS 06/06/24 06/06/24 History Allergies Allergy/AdvReac Type Severity Reaction Status Date / Time cefazolin Allergy Rash/Hives Verified 06/06/24 07:23 Physical Exam Vitals: Vital Signs Temp Pulse Pulse Resp BP BP Pulse Ox 06/06/24 07:00 98.0 F 70 16 116/69 96 06/06/24 00:57 98.5 F 77 12 130/84 95 06/06/24 00:12 106 H 16 120/60 95 06/05/24 22:45 82 16 118/62 96 06/05/24 19:03 98.4 F 109 H 18 153/89 99 Intake and Output 06/05/24 06/06/24 06/06/24 22:59 06:59 14:59 Intake Total 1014 Balance 1014 Intake: Oral 1014 Other: # Voids 1 Weight 72.575 kg 72.575 kg - Constitutional General appearance: average body habitus, cooperative, no acute distress - EENT Eyes: anicteric sclerae, EOMI ENT: hearing grossly normal, normal oropharynx - Neck Neck: no lymphadenopathy - Respiratory Respiratory: bilateral: CTA - Cardiovascular Rhythm: regular Heart sounds: normal: S1, S2 Abnormal Heart Sounds: no systolic murmur, no diastolic murmur, no rub, no S3 Gallop, no S4 Gallop, no click, no other leg Peripheral Edema: bilateral: None - Gastrointestinal General gastrointestinal: soft - Integumentary Integumentary: normal - Neurologic Neurologic: CNII-XII intact - Musculoskeletal Musculoskeletal: strength equal bilaterally - Psychiatric Psychiatric: A&O x's 3, appropriate affect, intact judgment & insight Results CBC & Chem 7: 06/06/24 05:12 06/06/24 05:12 Labs: Abnormal Lab Results - Last 24 Hours (Table) 06/05/24 06/05/24 06/06/24 Range/Units 19:47 19:47 05:12 RBC 2.50 L 2.08 L (4.30-5.90) m/uL Hgb 10.8 L 9.0 L D (13.0-17.5) gm/dL Hct 33.1 L 27.9 L (39.0-53.0) % MCV 132.4 H 134.3 H (80.0-100.0) fL MCH 43.0 H 43.5 H (25.0-35.0) pg RDW 16.0 H 16.1 H (11.5-15.5) % Nucleated RBCs 10 H 6 H (0-0) /100 WBC Macrocytosis Marked A Marked A Retic Count 9.4 H (0.5-2.0) % Chloride (98-107) mmol/L BUN 5 L (9-20) mg/dL Creatinine (0.66-1.25) mg/dL Glucose 121 H (74-99) mg/dL Total Bilirubin 1.5 H (0.2-1.3) mg/dL Alkaline Phosphatase 139 H (38-126) U/L Total Protein (6.3-8.2) g/dL Albumin (3.5-5.0) g/dL Lipase 22 L (23-300) U/L 06/06/24 Range/Units 05:12 RBC (4.30-5.90) m/uL Hgb (13.0-17.5) gm/dL Hct (39.0-53.0) % MCV (80.0-100.0) fL MCH (25.0-35.0) pg RDW (11.5-15.5) % Nucleated RBCs (0-0) /100 WBC Macrocytosis Retic Count (0.5-2.0) % Chloride 110 H (98-107) mmol/L BUN 6 L (9-20) mg/dL Creatinine 0.57 L (0.66-1.25) mg/dL Glucose (74-99) mg/dL Total Bilirubin 1.9 H (0.2-1.3) mg/dL Alkaline Phosphatase (38-126) U/L Total Protein 6.0 L (6.3-8.2) g/dL Albumin 3.4 L (3.5-5.0) g/dL Lipase (23-300) U/L Chest x-ray: report reviewed Abdominal x-ray: report reviewed Assessment and Plan (1) Sickle cell anemia with crisis Current Visit: Yes Status: Acute Priority: High Code(s): D57.00 - HB-SS DISEASE WITH CRISIS, UNSPECIFIED SNOMED Code(s): 178678193 Plan: Sickle cell crisis -Patient admitted with complaints of significant, generalized pain. Home pain medications were no longer providing any relief. -On admission patient's labs consistent with hemolysis. Hemoglobin stable, not requiring transfusion at this time. Transfuse for hemoglobin less than 7 or if patient is symptomatic. -Treatment of sickle cell crisis with hydration, pain medications and oxygen. -Medications for the prevention of narcotic induced constipation ordered. -Pain management has been asked to assess the patient. He is not going to be traveling to the [facility] anymore so, we will be managing pain. Would appreciate some recommendations to maximize patient's pain control o utpatient. -Labs daily, follow-up daily, ongoing pain assessment.
[2024-06-06] MEDS ORDERED: MAGNESIUM HYDROXIDE 2,400 MG/30 ML CUP PO PRN (15:14)
--- NOTE | 2024-06-06 15:24 | P.PAINPG ---
Objective - Vital Signs Vital signs: Vital Signs Temp 98.0 F 06/06/24 07:00 Pulse 70 06/06/24 07:00 Resp 16 06/06/24 07:00 BP 116/69 06/06/24 07:00 Pulse Ox 96 06/06/24 07:00 FiO2 Intake & Output 06/05/24 06/06/24 06/06/24 18:59 06:59 18:59 Intake Total 1014 240 Balance 1014 240 Weight 72.575 kg Intake: Oral 1014 240 Other: # Voids 1 - Labs CBC & Chem 7: 06/06/24 05:12 06/06/24 05:12 Labs: Abnormal Lab Results - Last 24 Hours (Table) 06/05/24 06/05/24 06/06/24 Range/Units 19:47 19:47 05:12 RBC 2.50 L 2.08 L (4.30-5.90) m/uL Hgb 10.8 L 9.0 L D (13.0-17.5) gm/dL Hct 33.1 L 27.9 L (39.0-53.0) % MCV 132.4 H 134.3 H (80.0-100.0) fL MCH 43.0 H 43.5 H (25.0-35.0) pg RDW 16.0 H 16.1 H (11.5-15.5) % Nucleated RBCs 10 H 6 H (0-0) /100 WBC Macrocytosis Marked A Marked A Retic Count 9.4 H (0.5-2.0) % Chloride (98-107) mmol/L BUN 5 L (9-20) mg/dL Creatinine (0.66-1.25) mg/dL Glucose 121 H (74-99) mg/dL Total Bilirubin 1.5 H (0.2-1.3) mg/dL Alkaline Phosphatase 139 H (38-126) U/L Lactate Dehydrogenase (120-246) U/L Total Protein (6.3-8.2) g/dL Albumin (3.5-5.0) g/dL Lipase 22 L (23-300) U/L 06/06/24 06/06/24 Range/Units 05:12 05:12 RBC (4.30-5.90) m/uL Hgb (13.0-17.5) gm/dL Hct (39.0-53.0) % MCV (80.0-100.0) fL MCH (25.0-35.0) pg RDW (11.5-15.5) % Nucleated RBCs (0-0) /100 WBC Macrocytosis Retic Count (0.5-2.0) % Chloride 110 H (98-107) mmol/L BUN 6 L (9-20) mg/dL Creatinine 0.57 L (0.66-1.25) mg/dL Glucose (74-99) mg/dL Total Bilirubin 1.9 H (0.2-1.3) mg/dL Alkaline Phosphatase (38-126) U/L Lactate Dehydrogenase 335 H (120-246) U/L Total Protein 6.0 L (6.3-8.2) g/dL Albumin 3.4 L (3.5-5.0) g/dL Lipase (23-300) U/L PQRS Measure Charge Sheet Comment: HISTORY OF PRESENT ILLNESS: A 34 yr old inpatient male w 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 Pt states pain level is provoked at 9 /10 in intensity, constant, localized in the lumbar spine, predominantly axial, throbbing in character without shooting pain. Pain has no provocation. Pain is alleviated by medications (Dilaudid MACHINERY CLEANER 10mg IV, Toradol 15mg/mL q6h), repositioning and rest. While on the current regimen, his pain level is at 2 /10. He used to be on Percocet 5/325mg q6h in 2023 but currently at Percocet 10/325mg q4h from Dr Palacio though MAPS states Dr Valles. As of 06/05/24 pt's retic count is elevated at 9.8 PMH: OA, Sickle Cell Anemia PSH: Cholecystectomy (2010) SH: Daily tobacco use, No ETOH use, No illicit drug use FH: Non contributory All: See list Meds: See list REVIEW OF ORGAN SYSTEMS: CONSTITUTIONAL: No fevers or chills. No recent weight loss. NEUROLOGICAL: + numbness and tingling along the distal extremities. No seizure disorders or headaches. MUSCULOSKELETAL: + pain PSYCHIATRIC: Denies current depression or suicidal thoughts. Physical Examinations : Constitutional : Cooperative , not in acute distress . Neurologic : Cranial nerve II to XII intact. No focal neurological deficits. Psychiatric : alert & oriented x 3. Matching mood & appropriate affect. Judgment & insight intact. Musculoskeletal : Cervical Spine Motor strength in the deltoid and biceps: Normal right side. Normal Left side Motor strength biceps and the wrist extensors: Normal right side . Normal left side Motor strength in the triceps muscle: Normal right side. Normal left side Deep tendon reflexes: Normal at the biceps. Normal at Brachioradialis. Normal at triceps Vertebral body tenderness to deep palpation over Cervical facet loading test: positive bilaterally Spurling test: positive bilaterally Neck distraction test: positive bilaterally Jolene sign: positive bilaterally Lumbar spine Motor strength lower extremities ,thigh and legs 5/5 Right side , 5/5 Left side Deep tendon reflexes : Normal Knee Jerk. Normal Ankle Jerk Vertebral body tenderness over Smart Test positive Lumbar facet Loading Test: positive Right / positive Left Range of motion of the lumbar spine Flexion 30 degrees, extension 10 degrees Straight Leg Raise test: Left/ Right positive at degrees Araceli test: positive right / positive left. Severe tenderness over the Sacroiliac joint on the Right / Left sides Gaenslen test: positive bilaterally Seated flexion test: positive bilaterally. Sacral spine : Severe tenderness over the Sacroiliac joint: right side / left side Range of motion: Flexion of the lumbar spine <60 degrees Range of motion: Extension of the lumbar spine <20 degrees Gaenslen's Test positive Araceli test: positive right side / left side Thigh Thrust Test Sacral Thrust Test Imaging: CXR and KUB from 06/05/24 Negative for Acute Process Assessment/ Plan : Sickle Cell Crisis No new intervention at this time. All questions answered. I have spent greater than 30 minutes on patient care today. Dr Otoole was a vailable by phone for the evaluation of this patient. The time was used to review the medical records including relevant urine studies and Prescription history (MAPs), review of the available imaging, evaluation and examination of the patient, coordination of care with the medical staff and if applicable referring physicians, as well as creation of the medical record PQRS Narrative: Blood Pressure [Left Arm] 116/69 Blood Pressure 120/60 Pain Intensity 4 Pain Scale Used Numeric (1 - 10) Scale Used Numeric (1 - 10) Home Medications: Ambulatory Orders Folic Acid 1 mg PO DAILY 05/20/23 Hydroxyurea [Hydrea] 1,500 mg PO DAILY 05/20/23 oxyCODONE-APAP 10-325MG [Percocet 10-325 mg] 1 tab PO Q6H PRN 11/14/23 Ibuprofen [Motrin Ib] 400 - 800 mg PO Q6H PRN 06/06/24 Pregabalin [Lyrica] 75 mg PO HS 06/06/24 Controlled Substance Measures - Controlled Substance Measures Is patient prescribed a controlled substance at discharge?: No
[2024-06-06] MEDS: LACTATED RINGERS 1,000 ML IV SCH (15:38)
[2024-06-06] MEDS: SENNOSIDES-DOCUSATE SODIUM 1 EACH TAB PO SCH (21:11)
[2024-06-07 08:34] LABS: ALT 28 U/L (10-49); AST 28 U/L (14-35); Albumin 3.6 g/dL (3.8-4.9); Albumin/Globulin Ratio 1.64 Ratio (1.60-3.17); Alkaline Phosphatase 145 U/L (41-126); BUN/Creat Ratio 9.83 Ratio (12.00-20.00); Blood Urea Nitrogen 5.9 mg/dL (9.0-27.0); Calcium 9.1 mg/dL (8.7-10.3); Carbon Dioxide 22.5 mmol/L (21.6-31.8); Chloride 110 mmol/L (96-109); Globulin 2.2 g/dL (1.6-3.3); Glucose 100 mg/dL (70-110); Potassium 4.2 mmol/L (3.5-5.5); Sodium 140 mmol/L (135-145); Total Bilirubin 1.6 mg/dL (0.3-1.2); Total Protein 5.8 g/dL (6.2-8.2)
[2024-06-07 08:50] LABS: HCT 24.5 % (39.6-50.0); MCH 44.8 pg (27.0-32.0); MCHC 36.7 g/dL (32.0-37.0); MCV 121.9 FL (80.0-97.0); NRBC Per 100 WBC 0.16 X 10*3/uL (0.00-0.01); Platelet Count 203 X 10*3/uL (140-440); RBC 2.01 X 10*6/uL (4.40-5.60); RDW 15.1 % (11.5-14.5); WBC 5.56 X 10*3/uL (4.50-10.00)
[2024-06-07] MEDS: oxyCODONE-APAP 10-325MG 1 EACH TAB PO SCH (12:41)
[2024-06-07 13:07] VITALS: BP 123/73; PULSE 66; RESP 14; TEMP 98.2
--- NOTE | 2024-06-07 13:57 | P.PN ---
Subjective Progress Note Date: 06/07/24 34-year-old male with PMH of sickle cell anemia and nicotine dependence. Presented to the hospital on 06/05/2024 with concerns of sickle cell crisis with reports of diffuse abdominal pain and lower back pain. Patient reports the symptoms consistent with previous sickle cell crisis with last reported sickle cell crisis being 03/14/24. Upon arrival to our facility, patient underwent evaluation. Vital signs upon arrival show BP 153/89, HR 109, RR 18, T 98.4 F, and SpO2 of 99% on RA. EKG completed showing sinus mechanism at 85 bpm. Chest x-ray negative for acute process. KUB completed showing no evidence for acute process. CBC showing Hg 10.8, MCV of 132.4, MCH of 43.0, and RDW of 16.0. Nucleated RBCs elevated at 10. Retic count elevated at 9.4. Coagulation profile normal finding and D-dimer negative at 0.59. BMP unremarkable. Blood glucose 121. Lactic acid 1.1. Liver profile showing elevated total bili of 1.5 and alkaline phosphatase of 139. Lipase 22. Urinalysis negative for blood or i nfection. Patient admitted under our services with consultation to hematology. Troponins were trended overnight resulting at 0.023, 0.018, 0.017, and 0.019. Patient was started on Dilaudid FORCE ADJUSTMENT SUPERVISOR pump. Pain management consulted. 06/07 Patient was seen and examined. Pain well controlled. 04/30 currently. CBC and CMP significant for RBC 2.01, Hg 9, Hct 24.5, MCV 121.9, Cl 110, BUN 5.9, T. Bili 1.6, alk phos 145, alb 3.6. General: non toxic, no distress, appears at stated age Derm: warm, dry Head: atraumatic, normocephalic, symmetric Mouth: no lip lesion, mucus membranes moist Cardiovascular: S1S2 reg, no murmur Lungs: Decreased BS bilaterally, no rales , no accessory muscle use Ext: no gross muscle atrophy, no edema, no contractures Neuro: no focal neuro deficits Psych: Alert and oriented. Based on my assessment of this patient, this patient meets a high complexity level of care. Sickle cell crisis: Trial without FORCE ADJUSTMENT SUPERVISOR pump. Ibuprofen 400 mg PO Q6H PRN, Toradol 15 mg IV Q6H PRN. Percocet 10 Q4H scheduled. LR at 150 cc/hr. Hemolytic anemia: LDH 335. Haptoglobin < 10. Monitor CBC. Transfuse if Hg < 7. Hematology on board. Hyperbilirubinemia likely due to above Anticipate discharge when pain is controlled. CODE STATUS: FULL CODE DVT Prophylaxis: Lovenox GI Prophylaxis: Designated medical POA if patient is not able to make medical decisions for themselves: I have reviewed the following jewelry consultant notes: Oncology, Pain management note. I have reviewed the results of the following tests: CBC, CMP, Haptoglobin, LDH. I have ordered the following tests: CBC and CMP in the AM. I have discussed the care of this patient with the following independent historian: SHANNON. I have independently interpreted the following test below: I have discussed the management of this patient with the following physician: Objective - Vital Signs Vital signs: Vital Signs Temp 98.2 F 06/07/24 13:06 Pulse 66 06/07/24 13:06 Resp 14 06/07/24 13:06 BP 123/73 06/07/24 13:06 Pulse Ox 99 06/07/24 12:02 FiO2 Intake & Output 06/06/24 06/07/24 06/07/24 18:59 06:59 18:59 Intake Total 2280 540 240 Balance 2280 540 240 Intake: Oral 2280 540 240 Other: # Voids 5 # Bowel Movements 1 - Labs CBC & Chem 7: 06/07/24 05:30 06/07/24 05:30 Labs: Abnormal Lab Results - Last 24 Hours (Table) 06/06/24 06/07/24 06/07/24 Range/Units 05:12 05:30 05:30 RBC 2.01 L (4.40-5.60) X 10*6/uL Hgb 9.0 L (13.0-17.0) g/dL Hct 24.5 L (39.6-50.0) % MCV 121.9 H (80.0-97.0) FL MCH 44.8 H (27.0-32.0) pg RDW 15.1 H (11.5-14.5) % NRBC/100 WBC Diff 0.16 H (0.00-0.01) X 10*3/uL Haptoglobin <10.0 L (31.2-198.0) mg/dL Chloride 110 H (96-109) mmol/L BUN 5.9 L (9.0-27.0) mg/dL BUN/Creatinine Ratio 9.83 L (12.00-20.00) Ratio Total Bilirubin 1.6 H (0.3-1.2) mg/dL Alkaline Phosphatase 145 H (41-126) U/L Total Protein 5.8 L (6.2-8.2) g/dL Albumin 3.6 L (3.8-4.9) g/dL
--- NOTE | 2024-06-07 14:12 | P.DS ---
Providers Date of admission: 06/05/24 22:13 Expected date of discharge: 06/07/24 Attending physician: Devon Medina MD Consults: 06/05/24 22:10 Consult Physician Urgent Consulting Provider: Da Alan Consult Reason/Comments: Sickle cell Do you want consulting provider notified?: Yes, Notify in am Primary care physician: Da Alan MD Hospital Course: 34-year-old male with PMH of sickle cell anemia and nicotine dependence. Presented to the hospital on 06/05/2024 with concerns of sickle cell crisis with reports of diffuse abdominal pain and lower back pain. Patient reports the symptoms consistent with previous sickle cell crisis with last reported sickle cell crisis being 03/14/24. Upon arrival to our facility, patient underwent evaluation. Vital signs upon arrival show BP 153/89, HR 109, RR 18, T 98.4 F, and SpO2 of 99% on RA. EKG completed showing sinus mechanism at 85 bpm. Chest x-ray negative for acute process. KUB completed showing no evidence for acute process. CBC showing Hg 10.8, MCV of 132.4, MCH of 43.0, and RDW of 16.0. Nucleated RBCs elevated at 10. Retic count elevated at 9.4. Coagulation profile normal finding and D-dimer negative at 0.59. BMP unremarkable. Blood glucose 121. Lactic acid 1.1. Liver profile showing elevated total bili of 1.5 and alkaline phosphatase of 139. Lipase 22. Urinalysis negative for blood or infection. Patient admitted under our services with consultation to hematology. Troponins were trended overnight resulting at 0.023, 0.018, 0.017, and 0.019. Patient was started on Dilaudid FRAME GATE MORTISER OPERATOR pump. Pain management consulted. 06/07 Patient was seen and examined. Pain well controlled. 04/30 currently. CBC and CMP significant for RBC 2.01, Hg 9, Hct 24.5, MCV 121.9, Cl 110, BUN 5.9, T. Bili 1.6, alk phos 145, alb 3.6. Discharge Plan: Percocet 10 Q4 PRN x [address] days. Follow up with Dr. Alan and Dr. Otoole within 1 week of discharge. Maintain hydration. General: non toxic, no distress, appears at stated age Derm: warm, dry Head: atraumatic, normocephalic, symmetric Mouth: no lip lesion, mucus membranes moist Cardiovascular: S1S2 reg, no murmur Lungs: Decreased BS bilaterally, no rales , no accessory muscle use Ext: no gross muscle atrophy, no edema, no contractures Neuro: no focal neuro deficits Psych: Alert and oriented. Discharge Diagnosis: Sickle cell crisis Hemolytic anemia Hyperbilirubinemia likely due to above This complex discharge took 35 minutes to complete. Patient Condition at Discharge: Stable Plan - Discharge Summary Discharge Rx Participant: Yes New Discharge Prescriptions: New oxyCODONE-APAP 10-325MG [Percocet 10-325 mg] 1 each PO Q4HR #18 tab Continue Folic Acid 1 mg PO DAILY Hydroxyurea [Hydrea] 1,500 mg PO DAILY Pregabalin [Lyrica] 75 mg PO HS Ibuprofen [Motrin Ib] 400 - 800 mg PO Q6H PRN PRN Reason: Pain Discontinued oxyCODONE-APAP 10-325MG [Percocet 10-325 mg] 1 tab PO Q6H PRN PRN Reason: Pain Discharge Medication List Folic Acid 1 mg PO DAILY 05/20/23 [History] Hydroxyurea [Hydrea] 1,500 mg PO DAILY 05/20/23 [History] Ibuprofen [Motrin Ib] 400 - 800 mg PO Q6H PRN 06/06/24 [History] Pregabalin [Lyrica] 75 mg PO HS 06/06/24 [History] oxyCODONE-APAP 10-325MG [Percocet 10-325 mg] 1 each PO Q4HR #18 tab 06/07/24 [Rx] Follow up Appointment(s)/Referral(s): Da Alan MD [Primary Care Provider] - 08/17/24 10:30 am Romy Otoole MD [STAFF PHYSICIAN] - 1 Week Activity/Diet/Wound Care/Special Instructions: Maintain hydration Discharge Disposition: HOME SELF-CARE
[2024-06-07] MEDS ORDERED: HYDROmorphone 2 MG TAB PO PRN (14:16)
[2024-06-07] MEDS ORDERED: HYDROmorphone 1 MG/ML 1 ML SYRINGE IVP PRN (14:18)
--- NOTE | 2024-06-07 14:34 | P.PN ---
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 Objective - Vital Signs Vital signs: Vital Signs Temp 98.2 F 06/07/24 13:06 Pulse 66 06/07/24 13:06 Resp 14 06/07/24 13:06 BP 123/73 06/07/24 13:06 Pulse Ox 99 06/07/24 12:02 FiO2 Intake & Output 06/06/24 06/07/24 06/07/24 18:59 06:59 18:59 Intake Total 2280 540 1800 Balance 2280 540 1800 Intake: Oral 2280 540 1800 Other: # Voids 5 5 # Bowel Movements 1 1 - Constitutional General appearance: Present: average body habitus, cooperative, no acute distress - EENT Eyes: Present: anicteric sclerae, EOMI ENT: Present: hearing grossly normal - Respiratory Details: resp even and unlabored - Cardiovascular Details: Radial pulse 2+, regular - Peripheral edema leg Peripheral Edema: bilateral: None - Neurologic Neurologic: Present: CNII-XII intact - Musculoskeletal Musculoskeletal: Present: strength equal bilaterally - Psychiatric Psychiatric: Present: A&O x's 3, appropriate affect, intact judgment & insight - Labs CBC & Chem 7: 06/07/24 05:30 06/07/24 05:30 Labs: Abnormal Lab Results - Last 24 Hours (Table) 06/06/24 06/07/24 06/07/24 Range/Units 05:12 05:30 05:30 RBC 2.01 L (4.40-5.60) X 10*6/uL Hgb 9.0 L (13.0-17.0) g/dL Hct 24.5 L (39.6-50.0) % MCV 121.9 H (80.0-97.0) FL MCH 44.8 H (27.0-32.0) pg RDW 15.1 H (11.5-14.5) % NRBC/100 WBC Diff 0.16 H (0.00-0.01) X 10*3/uL Haptoglobin <10.0 L (31.2-198.0) mg/dL Chloride 110 H (96-109) mmol/L BUN 5.9 L (9.0-27.0) mg/dL BUN/Creatinine Ratio 9.83 L (12.00-20.00) Ratio Total Bilirubin 1.6 H (0.3-1.2) mg/dL Alkaline Phosphatase 145 H (41-126) U/L Total Protein 5.8 L (6.2-8.2) g/dL Albumin 3.6 L (3.8-4.9) g/dL Assessment and Plan (1) Sickle cell anemia with crisis Current Visit: Yes Status: Acute Priority: High Code(s): D57.00 - HB-SS DISEASE WITH CRISIS, UNSPECIFIED SNOMED Code(s): 050406958 Plan: Sickle cell crisis -Patient admitted with complaints of significant, generalized pain. Home pain medications were no longer providing any relief. -On admission patient's labs consistent with hemolysis. Hemoglobin stable today, no transfusion needed this admit. Labs today show a slight improvement in bilirubin. -Treatment of sickle cell crisis with hydration, pain medications and oxygen. 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 -Medications for the prevention of narcotic induced constipation ordered. -See DC order and 3 day Rx for pt percocet sent. Made an appt for him to be seen Tuesday in office to get medications in order is scheduled. Verbally told pt, he agreed with plan
== END 2024-06-07 14:55 | disposition home or self-care (01) | DRG 662 ==
LOC: EC 18:56 → OBSVTOIN 22:13 → 5NMEDONC 22:13
PROVIDERS: ADMIT Internal Medicine; ATTEND Internal Medicine
DX: D57.00 Hb-SS disease with crisis, unspecified (principal); D75.89 Other specified diseases of blood and blood-forming organs; F17.210 Nicotine dependence, cigarettes, uncomplicated; M19.90 Unspecified osteoarthritis, unspecified site; E87.8 Other disorders of electrolyte and fluid balance, not elsewhere classified; I07.1 Rheumatic tricuspid insufficiency; Z71.6 Tobacco abuse counseling; Z90.49 Acquired absence of other specified parts of digestive tract; Z88.1 Allergy status to other antibiotic agents
CPT/HCPCS: 36415; 71046; 74018; 80053; 81003; 83010; 83605; 83615; 83690; 83735; 84484; 85025; 85027; 85045; 85379; 85384; 85610; 85730; 93005; 96361; 96374; 96376; 99285

== ENCOUNTER → 2024-06-28 | Outpatient (CLI) | payer OTHER ==
[2024-06-28 15:09] VITALS: BP 122/73; PULSE 80; RESP 16; TEMP 98.3
--- NOTE | 2024-06-28 15:40 | P.SLEEP ---
History of Present Illness DATE: 06/28/2024 CONSULTATION/NEW PATIENT EVALUATION HISTORY OF PRESENT ILLNESS/SLEEP-WAKE EVALUATION: 34-year-old gentleman had b een evaluated in the sleep center for possible obstructive sleep apnea hypopnea syndrome. SLEEP SCHEDULE: Usually sleep schedule from 10 PM to 7 AM. FALLING ASLEEP: Usually no significant problems with falling asleep. DURING SLEEP: Patient snores and wakes up from sleep 3 times with nocturia. Positive history of palpitations and heartburn no history of hypnogogical hallucinations, sleep paralysis, or cataplexy. DURING THE DAY/WAKE STATE: In the morning patient wake up tired, has problems with memory, depression, anxiety. [place] sleepiness scale is 6. Patient takes nap at 1 PM. PAST MEDICAL HISTORY: Sickle cell anemia, back problems. PAST SURGICAL HISTORY: Cholecystectomy. MEDICATIONS: Please see below. SOCIAL HISTORY: Please see below. FAMILY HISTORY: Please see below. REVIEW OF SYSTEMS: Snoring, multiple awakenings from sleep. No fevers. No double vision. No recent chest pain. No shortness of breath. No abdominal pain. No bleeding episodes. No blood in urine. No seizure episodes. PHYSICAL EXAMINATION: GENERAL: A pleasant patient without any distress. VITAL SIGNS: Please see below, weight 164 pounds, BMI 24.2. HEENT: PERRLA, EOMI. Evaluation of oropharynx showed tongue protrudes midline, low position of soft palate Mallampati 3. NECK: Supple. No JVD. Thyroid is not palpable. 15 inches in circumference. LUNGS: Clear to percussion and to auscultation. Good air exchange. No wheezing or rhonchi. HEART: S1, S2 regular. No murmurs, gallops or rubs. ABDOMEN: Soft and nontender. Bowel sounds are present. No organomegaly appreciated. EXTREMITIES: No clubbing or cyanosis. CAD INTERN: Awake, alert, and oriented x3. Cranial nerves 2 to 7 intact. There is no fasciculation or atrophy noted. No focal deficits observed. ASSESSMENT: 1. Snoring, multiple awakenings from sleep, small oropharyngeal airspace, low position of soft palate Mallampati 3. Obstructive sleep apnea hypopnea syndrome. 2. History of sickle cell anemia. 3. Back problems. 4. Status post cholecystectomy. PLAN: 1. Polysomnography for evaluation of patient's breathing during sleep. 2. Following plan after reading sleep study. 3. Preferable position during sleep on the side. 4. No driving if patient feels any sleepiness. Patient is aware of civil and criminal liability for unsafe driving. 5. Sleep hygiene with regular sleep time for at least 7.5-8 hours. Thank you very much for referring this patient for consultation. Sincerely, Francisco Javier Cervantes MD, PhD, FAASM. Diplomat of [place] [employer], Sleep Medicine Board by [place] [employer] [place] [employer] [facility] [place] Past Medical History Past Medical History: Blood Disorder Additional Past Medical History / Comment(s): sickle cell, Anemia History of Any Multi-Drug Resistant Organisms: None Reported Past Surgical History: Cholecystectomy Additional Past Surgical History / Comment(s): 2011 cholecystectomy Past Anesthesia/Blood Transfusion Reactions: No Reported Reaction Past Psychological History: No Psychological Hx Reported Smoking Status: Current every day smoker Past Alcohol Use History: None Reported Past Drug Use History: None Reported - Past Family History Mother Additional Family Medical History / Comment(s): mental illness Medications and Allergies Home Medications Medication Instructions Recorded Confirmed Type Folic Acid 1 mg PO DAILY 05/20/23 06/28/24 History Hydroxyurea [Hydrea] 1,500 mg PO DAILY 05/20/23 06/28/24 History Ibuprofen [Motrin Ib] 400 - 800 mg PO Q6H PRN 06/06/24 06/28/24 History Pregabalin [Lyrica] 75 mg PO HS 06/06/24 06/06/24 History oxyCODONE-APAP 10-325MG [Percocet 1 each PO Q4HR #18 tab 06/07/24 06/28/24 Rx 10-325 mg] Allergies Allergy/AdvReac Type Severity Reaction Status Date / Time cefazolin Allergy Rash/Hives Verified 06/06/24 07:23 Physical Exam Vitals: Vital Signs Temp Pulse Resp BP Pulse Ox 06/28/24 15:08 98.3 F 80 16 122/73 99 Intake and Output 06/28/24 06/28/24 06/28/24 06:59 14:59 22:59 Other: Weight 74.389 kg Sleep Note - Sleep Data ESS Total: 6 - Sleep Note Sleep Note: Temperature: 98.3 F Pulse Rate: 80 Respiratory Rate: 16 Blood Pressure: 122/73 SpO2: 99 Height: 5 ft 9 in Weight: 74.389 kg BMI: Neck Circumference: 15
== END ==
LOC: 3 N SLEEP 14:50
PROVIDERS: ATTEND Internal Medicine
DX: G47.33 Obstructive sleep apnea (adult) (pediatric) (principal); Z90.49 Acquired absence of other specified parts of digestive tract; Z86.2 Personal history of diseases of the blood and blood-forming organs and certain disorders involving the immune mechanism; Z88.8 Allergy status to other drugs, medicaments and biological substances
CPT/HCPCS: 99211

== ENCOUNTER 2024-07-12 19:38 | Outpatient (CLI) | payer OTHER ==
--- NOTE | 2024-07-18 13:48 | P.PCN ---
Description of Procedure: POLYSOMNOGRAPHY REPORT PROCEDURE(S)/DATE(S): Polysomnography 07/12/2024 CLINICAL: Patient has been seen in the sleep center for evaluation of obstructive sleep apnea-hypopnea syndrome. Please see my consultation. Sleep study has been done for evaluation of patient breathing during the sleep. PROCEDURE: The standard montage for clinical polysomnography included the electroencephalogram, the electrooculogram, the mentalis surface electromyography and Lead II cardiography. The respiratory battery consisted of measurements of nasal/buccal air flow, pressure transducer measurements from nose, thoracic and/or abdominal effort and intercostal surface electromyography. Video monitoring has been done to check for any parasomnia events. Nocturnal oxyhemoglobin saturations were obtained by finger oximetry. Step-bird titration with positive airway pressure was utilized to control the respiratory events, if necessary. RESULTS: During the diagnostic sleep study sleep efficiency was slightly below normal 85.1%. Latency to sleep onset was normal 17.5 min. Sleep architecture s howed stage NI was normal 7.7%, Delta sleep was short 5.0%, REM sleep was high 31.8%. Latency to REM sleep was short 42 minutes. Respiratory channel showed 0 obstructive apneas, 0 mixed apneas, 0 central apneas, 1 hypopneas with lowest oxygen level 91%. Total apnea hypopnea index was 0.1. Heart rate was in the range between 74 and 81, average 77. EMG showed 0 periodic limb movements per hour. IMPRESSIONS: 1. No significant respiratory abnormalities have been documented during the sleep study. Normal oxygenation during sleep. 2. No significant periodic limb movements have been documented. Please see other impressions from consultation PLAN: 1. I will see patient for follow-up visit to explain results of the test and recommendations. 2. No driving if feeling sleepiness. 3. Sleep hygiene with regular time in bed for at least 7-1/2 hours. Thank you very much for allowing me to participate in the management of your patient. Sincerely, Francisco Javier Cervantes MD, PhD, FAASM. Diplomat of [place] [employer], Sleep Medicine Board by [place] [employer] [facility] [place] cc:
== END 2024-07-13 05:43 | disposition home or self-care (01) ==
LOC: 3 N SLEEP 19:38
PROVIDERS: ATTEND Internal Medicine
DX: G47.33 Obstructive sleep apnea (adult) (pediatric) (principal); Z88.1 Allergy status to other antibiotic agents
CPT/HCPCS: 95810

== ENCOUNTER 2024-08-31 13:47 | Emergency (ER) | payer OTHER ==
--- NOTE | 2024-08-31 14:11 | ED ---
General Adult HPI - General Chief complaint: Abdominal Pain Stated complaint: Sickle cell flare up Time Seen by Provider: 08/31/24 13:59 Source: patient, RN notes reviewed Mode of arrival: ambulatory Limitations: no limitations - History of Present Illness Initial comments: This is a 34-year-old male with history of sickle cell disease presenting to emergency room with complaints of bilateral flank pain that is most severe over the right with mild radiation. Patient states that the pain feels similar to when he had sickle cell crisis in the past however is on the opposite side. He also states that he is having diffuse pain all over his body. He denies difficulty breathing, abdominal pain, nausea, vomiting, fevers, chills, urinary or bowel habit changes. Denies recent blood transfusion. - Related Data Home Medications Medication Instructions Recorded Confirmed Folic Acid 1 mg PO DAILY 05/20/23 06/28/24 Hydroxyurea [Hydrea] 1,500 mg PO DAILY 05/20/23 06/28/24 Ibuprofen [Motrin Ib] 400 - 800 mg PO Q6H PRN 06/06/24 06/28/24 Pregabalin [Lyrica] 75 mg PO HS 06/06/24 06/06/24 Previous Rx's Medication Instructions Recorded oxyCODONE-APAP 10-325MG [Percocet 1 each PO Q4HR #18 tab 06/07/24 10-325 mg] Allergies Allergy/AdvReac Type Severity Reaction Status Date / Time cefazolin Allergy Rash/Hives Verified 08/31/24 13:50 Review of Systems ROS Statement: Those systems with pertinent positive or pertinent negative responses have been documented in the HPI. ROS Other: All systems not noted in ROS Statement are negative. Past Medical History Past Medical History: Blood Disorder Additional Past Medical History / Comment(s): sickle cell, Anemia History of Any Multi-Drug Resistant Organisms: None Reported Past Surgical History: Cholecystectomy Additional Past Surgical History / Comment(s): 2011 cholecystectomy Past Anesthesia/Blood Transfusion Reactions: No Reported Reaction Past Psychological History: No Psychological Hx Reported Smoking Status: Current every day smoker Past Alcohol Use History: None Reported Past Drug Use History: None Reported - Past Family History Mother Additional Family Medical History / Comment(s): mental illness General Exam - General Exam Comments Initial Comments: Visual Physical Exam Vital signs reviewed General: Well-appearing, nontoxic, no acute distress. Head: Normocephalic, atraumatic Eyes: PERRLA, EOMI ENT: Airway patent Chest: Nonlabored breathing Skin: No visual rash, normal skin tone Neuro: Alert and oriented 3 Musculoskeletal: No gross abnormalities Limitations: no limitations General appearance: alert, in no apparent distress ENT exam: Present: normal exam, mucous membranes moist Neck exam: Present: normal inspection. Absent: tenderness, meningismus, lymphadenopathy Respiratory exam: Present: normal lung sounds bilaterally. Absent: respiratory distress, wheezes, rales, rhonchi, stridor Cardiovascular Exam: Present: regular rate, normal rhythm, normal heart sounds. Absent: systolic murmur, diastolic murmur, rubs, gallop, clicks GI/Abdominal exam: Present: soft, normal bowel sounds. Absent: distended, tenderness, guarding, rebound, rigid Extremities exam: Present: normal inspection, full ROM, normal capillary refill. Absent: tenderness, pedal edema, joint swelling, calf tenderness Back exam: Present: normal inspection Skin exam: Present: warm, dry, intact, normal color. Absent: rash Course Vital Signs 08/31/24 08/31/24 13:50 16:59 Temperature 97.8 F 99.0 F Pulse Rate 83 97 Respiratory 18 17 Rate Blood Pressure 119/82 145/99 O2 Sat by Pulse 99 99 Oximetry Medical Decision Making - Medical Decision Making Was pt. sent in by a medical professional or institution (JEIMY Li, HOTEL OR MOTEL ROOM SERVICE SUPERVISOR, urgent care, hospital, or intermediate...) When possible be specific @ -No Did you speak to anyone other than the patient for history (EMS, parent, family, police, friend...)? What history was obtained from this source @ -No Did you review nursing and triage notes (agree or disagree)? Why? @ -I reviewed and agree with nursing and triage notes Were old charts reviewed (outside hosp., previous admission, EMS record, old EKG, old radiological studies, urgent care reports/EKG's, intermediate records)? Report findings @ -No old charts were reviewed Differential Diagnosis (chest pain, altered mental status, abdominal pain women, abdominal pain men, vaginal bleeding, weakness, fever, dyspnea, syncope, headache, dizziness, GI bleed, back pain, seizure, CVA, palpatations, mental health, musculoskeletal)? @ -Differential Abdominal Pain Men: Appendicitis, cholecystitis, diverticulosis, ischemic bowel, pancreatitis, hepatitis, UTI, gastroenteritis, AAA, incarcerated hernia, bowel obstruction, constipation, inflammatory bowel, hepatitis, peptic ulcer disease, splenic infarction, perforated viscus, testicular torsion, this is not meant to be an all-inclusive list EKG interpreted by me (3pts min.). @ -None X-rays interpreted by me (1pt min.). @ -None done CT interpreted by me (1pt min.). @ -None done U/S interpreted by me (1pt. min.). @ -None done What testing was considered but not performed or refused? (CT, X-rays, U/S, l abs)? Why? @ -None What meds were considered but not given or refused? Why? @ -None Did you discuss the management of the patient with other professionals (professionals i.e. , PA, HOTEL OR MOTEL ROOM SERVICE SUPERVISOR, lab, RT, psych nurse, psychiatric social worker supervisor, flight security specialist, teacher, u.s. revenue officer, nurse outreach case manager)? Give summary @ -No Was smoking cessation discussed for >3mins.? @ -No Was critical care preformed (if so, how long)? @ -No Were there social determinants of health that impacted care today? How? (Homelessness, low income, unemployed, alcoholism, drug addiction, transportation, low edu. Level, literacy, decrease access to med. care, [facility], rehab)? @ -No Was there de-escalation of care discussed even if they declined (Discuss DNR or withdrawal of care, Hospice)? DNR status @ -No What co-morbidities impacted this encounter? (DM, HTN, Smoking, COPD, CAD, Cancer, CVA, ARF, Chemo, Hep., AIDS, mental health diagnosis, sleep apnea, morbid obesity)? @ -None Was patient admitted / discharged? Hospital course, mention meds given and route, prescriptions, significant lab abnormalities, going to OR and other pertinent info. @ - discharged. 34-year male presenting with pain. Overall patient is well-appearing. Patient's hemoglobin is stable at 10.2. Unable to assess reticulocyte count as this is a send out laboratory test. Troponin is not elevated at 0.016. Urinalysis no signs infection. Reevaluation after fluids and pain medications patient states that he is feeling well and was requesting discharge. Recommend close follow-up with medical staff assistant. Return parameters have been discussed. Case discussed with Dr. Leiva Undiagnosed new problem with uncertain prognosis? @ -No Drug Therapy requiring intensive monitoring for toxicity (Heparin, Nitro, Insulin, Cardizem)? @ -No Were any procedures done? @ -No Diagnosis/symptom? @ -Sickle cell pain Acute, or Chronic, or Acute on Chronic? @ -Acute Uncomplicated (without systemic symptoms) or Complicated (systemic symptoms)? @ -Uncomplicated Side effects of treatment? @ -No Exacerbation, Progression, or Severe Exacerbation? @ -No Poses a threat to life or bodily function? How? (Chest pain, [place], [place], pneumonia, PE, COPD, DKA, ARF, appy, cholecystitis, CVA, Diverticulitis, Homicidal, Suicidal, threat to staff... and all critical care pts) @ -No - Lab Data Result diagrams: 08/31/24 15:48 08/31/24 15:48 Lab Results 08/31/24 08/31/24 08/31/24 Range/Units 15:48 15:48 15:48 WBC 10.18 H (4.50-10.00) 10*3/uL RBC 2.33 L (4.40-5.60) 10*6/uL Hgb 10.2 L (13.0-17.0) g/dL Hct 26.5 L (39.6-50.0) % MCV 113.7 H (80.0-97.0) fL MCH 43.8 H (27.0-32.0) pg MCHC 38.5 H (32.0-37.0) g/dL Plt Count 202 (140-440) 10*3/uL MPV 10.6 (9.5-12.2) fL Immature Gran % (Auto) 0.3 % Neutrophils % 44.5 % Lymphocytes % 49.0 % Monocytes % 5.9 % Eosinophils % 0.1 % Basophils % 0.2 % Immature Gran # 0.03 (0.00-0.04) 10*3/uL Neutrophils # 4.53 (1.80-7.70) 10*3/uL Lymphocytes # 4.99 (0.90-5.00) 10*3/uL Monocytes # 0.60 (0.20-1.00) 10*3/uL Eosinophils # 0.01 L (0.04-0.35) 10*3/uL Basophils # 0.02 (0.00-0.10) 10*3/uL Differential Comment Manual Slide Review Performed Sodium 140 (137-145) mmol/L Potassium 4.1 (3.5-5.1) mmol/L Chloride 105 (98-107) mmol/L Carbon Dioxide 21 L (22-30) mmol/L Anion Gap 14 mmol/L BUN 9 (9-20) mg/dL Creatinine 0.69 (0.66-1.25) mg/dL Est GFR (CKD-EPI)AfAm >90 (>60 ml/min/1.73 sqM) Est GFR (CKD-EPI)NonAf >90 (>60 ml/min/1.73 sqM) Glucose 95 (74-99) mg/dL Calcium 10.6 H (8.4-10.2) mg/dL Magnesium 1.9 (1.6-2.3) mg/dL Total Bilirubin 1.8 H (0.2-1.3) mg/dL AST 49 (17-59) U/L ALT 38 (4-49) U/L Alkaline Phosphatase 151 H (38-126) U/L Troponin I 0.016 (0.000-0.034) ng/mL Total Protein 7.8 (6.3-8.2) g/dL Albumin 4.7 (3.5-5.0) g/dL Lipase 20 L (23-300) U/L Urine Color Urine Appearance (Clear) Urine pH (5.0-8.0) Ur Specific [place] (1.001-1.035) Urine Protein (Negative) Urine Glucose (UA) (Negative) Urine Ketones (Negative) Urine Blood (Negative) Urine Nitrite (Negative) Urine Bilirubin (Negative) Urine Urobilinogen (<2.0) mg/dL Ur Leukocyte Esterase (Negative) 08/31/24 Range/Units 17:08 WBC (4.50-10.00) 10*3/uL RBC (4.40-5.60) 10*6/uL Hgb (13.0-17.0) g/dL Hct (39.6-50.0) % MCV (80.0-97.0) fL MCH (27.0-32.0) pg MCHC (32.0-37.0) g/dL Plt Count (140-440) 10*3/uL MPV (9.5-12.2) fL Immature Gran % (Auto) % Neutrophils % % Lymphocytes % % Monocytes % % Eosinophils % % Basophils % % Immature Gran # (0.00-0.04) 10*3/uL Neutrophils # (1.80-7.70) 10*3/uL Lymphocytes # (0.90-5.00) 10*3/uL Monocytes # (0.20-1.00) 10*3/uL Eosinophils # (0.04-0.35) 10*3/uL Basophils # (0.00-0.10) 10*3/uL Differential Comment Manual Slide Review Sodium (137-145) mmol/L Potassium (3.5-5.1) mmol/L Chloride (98-107) mmol/L Carbon Dioxide (22-30) mmol/L Anion Gap mmol/L BUN (9-20) mg/dL Creatinine (0.66-1.25) mg/dL Est GFR (CKD-EPI)AfAm (>60 ml/min/1.73 sqM) Est GFR (CKD-EPI)NonAf (>60 ml/min/1.73 sqM) Glucose (74-99) mg/dL Calcium (8.4-10.2) mg/dL Magnesium (1.6-2.3) mg/dL Total Bilirubin (0.2-1.3) mg/dL AST (17-59) U/L ALT (4-49) U/L Alkaline Phosphatase (38-126) U/L Troponin I (0.000-0.034) ng/mL Total Protein (6.3-8.2) g/dL Albumin (3.5-5.0) g/dL Lipase (23-300) U/L Urine Color Light Yellow Urine Appearance Clear (Clear) Urine pH 5.5 (5.0-8.0) Ur Specific [place] 1.008 (1.001-1.035) Urine Protein Trace H (Negative) Urine Glucose (UA) Negative (Negative) Urine Ketones Negative (Negative) Urine Blood Negative (Negative) Urine Nitrite Negative (Negative) Urine Bilirubin Negative (Negative) Urine Urobilinogen <2.0 (<2.0) mg/dL Ur Leukocyte Esterase Negative (Negative) Disposition Clinical Impression: Sickle cell pain crisis Disposition: HOME SELF-CARE Condition: Stable Instructions (If sedation given, give patient instructions): Sickle Cell Crisis (ED) Additional Instructions: Please return to the Emergency Department if symptoms worsen or any other concerns. Is patient prescribed a controlled substance at d/c from ED?: No Referrals: Wade Clark DO [STAFF PHYSICIAN] - 1-2 days Time of Disposition: 18:05
[2024-08-31 15:59] LABS: Basophils # (A) 0.02 10*3/uL (0.00-0.10); Basophils % (A) 0.2 %; Eosinophils # (A) 0.01 10*3/uL (0.04-0.35); Eosinophils % (A) 0.1 %; HCT 26.5 % (39.6-50.0); HGB 10.2 g/dL (13.0-17.0); Lymphocytes # (A) 4.99 10*3/uL (0.90-5.00); MCV 113.7 fL (80.0-97.0); Mean Platelet Volume 10.6 fL (9.5-12.2); Monocytes % (A) 5.9 %; Neutrophils # (A) 4.53 10*3/uL (1.80-7.70); Neutrophils % (A) 44.5 %; Platelet Count 202 10*3/uL (140-440); RBC 2.33 10*6/uL (4.40-5.60); RDW 14.4 % (11.5-14.5); WBC 10.18 10*3/uL (4.50-10.00)
[2024-08-31 16:06] LABS: MCH 43.8 pg (27.0-32.0); MCHC 38.5 g/dL (32.0-37.0)
[2024-08-31 16:16] LABS: ALT 38 U/L (4-49); AST 49 U/L (17-59); African American GFR (CKD) >90 (>60 ml/min/1.73 sqM); Albumin 4.7 g/dL (3.5-5.0); Alkaline Phosphatase 151 U/L (38-126); Anion Gap 14 mmol/L; Blood Urea Nitrogen 9 mg/dL (9-20); Calcium 10.6 mg/dL (8.4-10.2); Carbon Dioxide 21 mmol/L (22-30); Chloride 105 mmol/L (98-107); Glucose 95 mg/dL (74-99); Lipase 20 U/L (23-300); Magnesium 1.9 mg/dL (1.6-2.3); Non-African American GFR(CKD) >90 (>60 ml/min/1.73 sqM); Potassium 4.1 mmol/L (3.5-5.1); Sodium 140 mmol/L (137-145); Total Bilirubin 1.8 mg/dL (0.2-1.3); Total Protein 7.8 g/dL (6.3-8.2)
[2024-08-31] MEDS: HYDROmorphone 1 MG/ML 1 ML SYRINGE IVP STA ×2 (17:17→18:12)
[2024-08-31] MEDS: SODIUM CHLORIDE 0.9% 1,000 ML IV ONE (17:19)
[2024-08-31 17:22] LABS: Appearance,Urine Clear (Clear); Bilirubin,Urine Negative (Negative); Blood,Urine Negative (Negative); Color,Urine Light Yellow; Glucose,Urine (UA) Negative (Negative); Ketones,Urine Negative (Negative); Leukocyte Esterase,Urine Negative (Negative); Nitrite,Urine Negative (Negative); PH, Urine 5.5 (5.0-8.0); Protein,Urine Trace (Negative); Specific Gravity,Urine 1.008 (1.001-1.035); Urobilinogen,Urine <2.0 mg/dL (<2.0)
[2024-08-31 18:32] VITALS: BP 134/84; PULSE 80; RESP 18; TEMP 98.3
== END 2024-08-31 18:40 | disposition home or self-care (01) ==
LOC: EC 13:47
DX: D57.00 Hb-SS disease with crisis, unspecified (principal); F17.200 Nicotine dependence, unspecified, uncomplicated; Z88.1 Allergy status to other antibiotic agents
CPT/HCPCS: 36415; 93005; 80053; 83690; 83735; 84484; 85025; 85045; 81003; 99284; 96374; 96376; 96361; J1171

== ENCOUNTER → 2024-09-12 | Outpatient (CLI) | payer OTHER ==
[2024-09-12 14:49] LABS: African American GFR (CKD) >90 (>60 ml/min/1.73 sqM); Blood Urea Nitrogen 7 mg/dL (9-20); Non-African American GFR(CKD) >90 (>60 ml/min/1.73 sqM)
--- NOTE | 2024-09-12 16:27 | CT ---
EXAMINATION TYPE: CT abdomen pelvis w con CT DLP: 1000 mGycm, Automated exposure control for dose reduction was used. DATE OF EXAM: 09/12/2024 3:24 PM COMPARISON: KUB radiograph 06/05/2024 CLINICAL INDICATION:Male, 34 years old with history of R10.9 UNSPECIFIED ABDOMINAL PAIN; Left sided a bdominal pain more towards flank TECHNIQUE: Standard CT of the abdomen and pelvis following the administration of 100 cc of Isovue 3 00 IV contrast material. Coronal and sagittal reformats were performed. FINDINGS: LOWER CHEST: Minimal posterior dependent subsegmental atelectasis is noted. ABDOMEN LIVER: Unremarkable GALLBLADDER AND BILE DUCTS: The gallbladder is surgically absent. No biliary ductal dilatation. PANCREAS: Unremarkable. SPLEEN: Unremarkable. ADRENAL GLANDS: Unremarkable. KIDNEYS AND URETERS: No evidence of hydronephrosis or renal calculus. Lobulated appearance to both ki dneys. The kidneys enhance symmetrically. Contrast is demonstrated within both collecting systems on the delayed phase. PELVIS BLADDER: Unremarkable REPRODUCTIVE: Unremarkable. ABDOMEN & PELVIS STOMACH AND BOWEL: Stomach and duodenum are unremarkable. The appendix is within normal limits. No fo ranjana bowel wall thickening or surrounding inflammatory changes. No evidence of bowel obstruction. PERITONEUM: No evidence of pneumoperitoneum or free fluid. Migration of a gallbladder clip into the r ight paracolic gutter. VASCULATURE: No evidence of aortic aneurysm. MUSCULOSKELETAL: No acute osseous abnormalities LYMPH NODES: No evidence for lymphadenopathy. SOFT TISSUE/ABDOMINAL WALL: Unremarkable IMPRESSION: No CT evidence for acute abdominal/pelvic process. [facility], , 09/12/2024 4:25 PM
== END | disposition home or self-care (01) ==
LOC: RADCTMAIN 14:05
PROVIDERS: ATTEND Internal Medicine
DX: R10.9 Unspecified abdominal pain (principal)
CPT/HCPCS: 82565; 84520; 74177; 36415; Q9967

== ENCOUNTER → 2024-09-20 | Outpatient (CLI) | payer OTHER ==
[2024-09-20 15:59] VITALS: BP 134/80; PULSE 76; RESP 16; TEMP 98.1
--- NOTE | 2024-09-20 17:30 | P.PROGSL ---
Subjective DATE: 09/20/2024 FOLLOW UP VISIT. Patient returned to sleep center for follow-up visit to discuss results of polysomnogram and following plan. I discussed results of polysomnogram with patient in details. Apnea hypopnea index was 0.1 and oxygen level was above 91%, which totally normal. No significant periodic limb movements have been documented during the sleep study.. [place] sleepiness scale is 6 today, which is normal. MEDICATIONS: Please see below During physical exam: GENERAL: A pleasant patient without any distress. VITAL SIGNS: Please see below. HEENT: PERRLA, EOMI. NECK: Supple. No JVD. LUNGS: Clear to percussion and to auscultation. Good air exchange. No wheezing or rhonchi. HEART: S1, S2 regular. ABDOMEN: Soft and nontender. EXTREMITIES: No clubbing or cyanosis. ELECTRIC MILKERS INSTALLER: Awake, alert, and oriented x3. No focal deficit. Impressions: 1. No significant respiratory abnormalities have been documented during polysomnogram 2. No periodic limb movements. 3. History of sickle cell anemia. 4. Back problems. 5. Status post cholecystectomy. Plan: 1. Sleep hygiene with regular time in bed for at least 8 hours. 2. Precautions related to driving. No driving if feel any sleepiness. Thank you very much for allowing me to participate in the management of your patient. Francisco Javier Cervantes MD, PhD, FAASM. Diplomat of [place] [employer], Sleep Medicine Board by [place] [employer] Procedure Rn of [facility] [place] cc: Da Alan MD Objective - Vital Signs Vital Signs: Vital Signs Temp 98.1 F 09/20/24 15:58 Pulse 76 09/20/24 15:58 Resp 16 09/20/24 15:58 BP 134/80 09/20/24 15:58 Pulse Ox 100 09/20/24 15:58 FiO2 Home Medications: Home Medications Medication Instructions Recorded Confirmed Type Folic Acid 1 mg PO DAILY 05/20/23 06/28/24 History Hydroxyurea [Hydrea] 1,500 mg PO DAILY 05/20/23 06/28/24 History Ibuprofen [Motrin Ib] 400 - 800 mg PO Q6H PRN 06/06/24 06/28/24 History Pregabalin [Lyrica] 75 mg PO HS 06/06/24 06/06/24 History oxyCODONE-APAP 10-325MG [Percocet 1 each PO Q4HR #18 tab 06/07/24 06/28/24 Rx 10-325 mg]
== END ==
LOC: 3 N SLEEP 15:33
PROVIDERS: ATTEND Internal Medicine
DX: G47.33 Obstructive sleep apnea (adult) (pediatric) (principal); Z86.2 Personal history of diseases of the blood and blood-forming organs and certain disorders involving the immune mechanism; Z90.49 Acquired absence of other specified parts of digestive tract; Z88.8 Allergy status to other drugs, medicaments and biological substances
CPT/HCPCS: 99212

== ENCOUNTER 2024-10-03 01:43 | Observation (INO) | payer OTHER ==
--- NOTE | 2024-10-03 01:50 | ED ---
Overdose HPI - General Stated Complaint: Overdose Time Seen by Provider: 10/03/24 01:48 Source: RN notes reviewed, old records reviewed Mode of arrival: EMS Limitations: altered mental status, physical limitation - History of Present Illness Initial Comments: This is a 34-year-old male coming in for overdose today. Patient is a level significant constitution party patient for overdose of multiple overdoses including Percocet oxycodone, given Narcan. Patient presents today with significant body shaking and tremor, does not participate in history of present illness MD Complaint: intentional overdose -: days(s) Intent: unwilling to say, unknown (Patient will not) How Overdose Was Discovered: family/friend present at time Treatments Prior to Arrival: none - Related Data Home Medications Medication Instructions Recorded Confirmed Folic Acid 1 mg PO DAILY 05/20/23 10/03/24 Hydroxyurea [Hydrea] 1,500 mg PO DAILY 05/20/23 10/03/24 oxyCODONE ER [OxyCONTIN] 10 mg PO Q12HR 10/03/24 10/03/24 oxyCODONE-APAP 10-325MG [Percocet 1 tab PO Q6H PRN 10/03/24 10/03/24 10-325 mg] Previous Rx's Medication Instructions Recorded Azithromycin [Zithromax] 500 mg PO DAILY 7 Days #7 tab 10/06/24 Allergies Allergy/AdvReac Type Severity Reaction Status Date / Time cefazolin Allergy Rash/Hives Verified 10/03/24 09:39 Review of Systems ROS Statement: Those systems with pertinent positive or pertinent negative responses have been documented in the HPI. ROS Other: All systems not noted in ROS Statement are negative. Past Medical History Past Medical History: Blood Disorder Additional Past Medical History / Comment(s): sickle cell, Anemia History of Any Multi-Drug Resistant Organisms: None Reported Past Surgical History: Cholecystectomy Additional Past Surgical History / Comment(s): 2011 cholecystectomy Past Anesthesia/Blood Transfusion Reactions: No Reported Reaction Past Psychological History: No Psychological Hx Reported Smoking Status: Current every day smoker Past Alcohol Use History: None Reported Past Drug Use History: None Reported - Past Family History Mother Additional Family Medical History / Comment(s): mental illness General Exam General appearance: alert, in no apparent distress Head exam: Present: atraumatic, normocephalic, normal inspection Eye exam: Present: normal appearance, PERRL, EOMI. Absent: scleral icterus, conjunctival injection, periorbital swelling ENT exam: Present: normal exam, mucous membranes moist Neck exam: Present: normal inspection. Absent: tenderness, meningismus, lymphad enopathy Respiratory exam: Present: normal lung sounds bilaterally. Absent: respiratory distress, wheezes, rales, rhonchi, stridor Cardiovascular Exam: Present: regular rate, normal rhythm, normal heart sounds. Absent: systolic murmur, diastolic murmur, rubs, gallop, clicks GI/Abdominal exam: Present: soft, normal bowel sounds. Absent: distended, tenderness, guarding, rebound, rigid Extremities exam: Present: normal inspection, full ROM, normal capillary refill. Absent: tenderness, pedal edema, joint swelling, calf tenderness Back exam: Present: normal inspection Neurological exam: Present: alert, oriented X3, CN II-XII intact Psychiatric exam: Present: normal affect, normal mood Skin exam: Present: warm, dry, intact, normal color. Absent: rash Course Vital Signs 10/03/24 10/03/24 10/03/24 01:43 03:24 06:33 Temperature 97.8 F Pulse Rate 128 H 81 74 Pulse Rate [ Sales Contractor ] Respiratory 22 16 18 Rate Blood Pressure 133/82 111/76 112/83 Blood Pressure [Left Arm] O2 Sat by Pulse 98 97 96 Oximetry 10/03/24 10/03/24 10/03/24 09:00 10:00 11:00 Temperature Pulse Rate 64 75 72 Pulse Rate [ Sales Contractor ] Respiratory 18 18 18 Rate Blood Pressure 106/63 98/51 101/67 Blood Pressure [Left Arm] O2 Sat by Pulse 96 95 95 Oximetry 10/03/24 10/03/24 10/03/24 12:32 17:02 17:07 Temperature Pulse Rate 69 99 Pulse Rate [ Sales Contractor ] Respiratory 15 18 18 Rate Blood Pressure 99/59 143/75 Blood Pressure [Left Arm] O2 Sat by Pulse 100 Oximetry 10/03/24 10/03/24 10/03/24 19:06 20:00 23:43 Temperature 98.6 F 98.5 F Pulse Rate 70 Pulse Rate [ 66 66 Sales Contractor ] Respiratory 19 16 16 Rate Blood Pressure 110/63 Blood Pressure 110/63 93/65 [Left Arm] O2 Sat by Pulse 99 97 97 Oximetry - Reevaluation(s) Reevaluation #1: 07/16/25 06:38 Medical records reviewed Reevaluation #2: 10/03/24 06:38 Patient remains without needing extra Narcan here in the ER mental status improving Reevaluation #3: 10/03/24 06:38 Patient informed of results questions answered Reevaluation #4: Was pt. sent in by a medical professional or institution (, JEIM[facility], POWER CHISEL OPERATOR, urgent care, hospital, or jail...) When possible be specific @ -no Did you speak to anyone other than the patient for history (EMS, parent, family, police, friend...)? What history was obtained from this source @ -no Did you review nursing and triage notes (agree or disagree)? Why? @ -agree Are old charts reviewed (outside hosp., previous admission, EMS record, old EKG, old radiological studies, urgent care reports/EKG's, jail records)? Report findings @ -yes Differential Diagnosis (chest pain, altered mental status, abdominal pain women, abdominal pain men, vaginal bleeding, weakness, fever, dyspnea, syncope, headache, dizziness, GI bleed, back pain, seizure, CVA, palpatations, mental health, musculoskeletal)? @ -prior EKG interpreted by me (3pts min.). @ -yes X-rays interpreted by me (1pt min.). @ -yes positive for pneumonia CT interpreted by me (1pt min.). @ -no U/S interpreted by me (1pt. min.). @ -no What testing was considered but not performed or refused? (CT, X-rays, U/S, labs)? Why? @ -none What meds were considered but not given or refused? Why? @ -none Did you discuss the management of the patient with other professionals (professionals i.e. , JEIMY, POWER CHISEL OPERATOR, lab, RT, psych nurse, health social work professor, rn prior authorization, teacher, community service officer coordinator, leather case finisher)? Give summary @ -no Was smoking cessation discussed for >3mins.? @ -no Was critical care preformed (if so, how long)? @ -yes31 Were there social determinants of health that impacted care today? How? (Homelessness, low income, unemployed, alcoholism, drug addiction, transportation, low edu. Level, literacy, decrease access to med. care, fdc, rehab)? @ -none Was there de-escalation of care discussed even if they declined (Discuss DNR or withdrawal of care, Hospice)? DNR status @ -no What co-morbidities impacted this encounter? (DM, HTN, Smoking, COPD, CAD, Cancer, CVA, ARF, Chemo, Hep., AIDS, mental health diagnosis, sleep apnea, morbid obesity)? @ -none Was patient admitted / discharged? Hospital course, mention meds given and route, prescriptions, significant lab abnormalities, going to OR and other pertinent info. @ - 34 male with overdose suspected significant opiate and Tylenol overdose prior to arrival. Patient will admit for monitoring of overdose symptoms needing Narcan if possible as well as respiratory status, concern for sickle cell crisis, psychiatric evaluation Admitted Undiagnosed new problem with uncertain prognosis? @ -no Drug Therapy requiring intensive monitoring for toxicity (Heparin, Nitro, Insulin, Cardizem)? @ -no Were any procedures done? @ -no Diagnosis/symptom? @ -Pneumonia opiate Tylenol overdose, sickle cell crisis Acute, or Chronic, or Acute on Chronic? @ -Acute Uncomplicated (without systemic symptoms) or Complicated (systemic symptoms)? @ -Complicated Side effects of treatment? @ -no Exacerbation, Progression, or Severe Exacerbation? @ -exacerbation Poses a threat to life or bodily function? How? (Chest pain, [place], [place], pneumonia, PE, COPD, DKA, ARF, appy, cholecystitis, CVA, Diverticulitis, Homicidal, Suicidal, threat to staff... and all critical care pts) @ -yes sickle cell disease Reevaluation #5: Differential Altered Mental Status: Hypoglycemia, DKA, hypercapnia, ETOH, overdose, CO poisoning, trauma, myxedema coma, HTN encephalopathy, infection, encephalitis, psychosis, intercranial hemorrhage, hepatic encephalopathy, meningitis, CVA, this is not meant to be an all-inclusive list - Consultations Consultation #1: Spoke with admitting physicians Dr. Helms agrees to admit this patient Medical Decision Making - Medical Decision Making 34 male with overdose suspected significant opiate and Tylenol overdose prior to arrival. Patient will admit for monitoring of overdose symptoms needing Narcan if possible as well as respiratory status, concern for sickle cell crisis, psychiatric evaluation - Lab Data Result diagrams: 10/05/24 05:18 10/05/24 05:18 Lab Results 10/03/24 10/03/24 10/03/24 Range/Units 02:00 02:00 02:00 WBC (4.50-10.00) 10*3/uL RBC (4.40-5.60) 10*6/uL Hgb (13.0-17.0) g/dL Hct (39.6-50.0) % MCV (80.0-97.0) fL MCH (27.0-32.0) pg MCHC (32.0-37.0) g/dL Plt Count (140-440) 10*3/uL MPV (9.5-12.2) fL Immature Gran % (Auto) % Neutrophils % % Lymphocytes % % Monocytes % % Eosinophils % % Basophils % % Immature Gran # (0.00-0.04) 10*3/uL Neutrophils # (1.80-7.70) 10*3/uL Lymphocytes # (0.90-5.00) 10*3/uL Monocytes # (0.20-1.00) 10*3/uL Eosinophils # (0.04-0.35) 10*3/uL Basophils # (0.00-0.10) 10*3/uL Manual Slide Review Polychromasia Target Cells [place] Bodies Retic Count (0.10-1.80) % PT 11.1 (10.0-12.5) sec INR 1.0 (<1.2) APTT 23.0 (22.0-30.0) sec Fibrinogen (200-500) mg/dL Sodium 140 (137-145) mmol/L Potassium 4.1 (3.5-5.1) mmol/L Chloride 102 (98-107) mmol/L Carbon Dioxide 24 (22-30) mmol/L Anion Gap 14 mmol/L BUN 10 (9-20) mg/dL Creatinine 0.79 (0.66-1.25) mg/dL Est GFR (CKD-EPI)AfAm >90 (>60 ml/min/1.73 sqM) Est GFR (CKD-EPI)NonAf >90 (>60 ml/min/1.73 sqM) Glucose 107 H (74-99) mg/dL Lactic Ac Sepsis Rflx Plasma Lactic Acid Layo 3.1 H* (0.7-2.0) mmol/L Calcium 10.8 H (8.4-10.2) mg/dL Phosphorus 3.1 (2.5-4.5) mg/dL Magnesium 1.8 (1.6-2.3) mg/dL Total Bilirubin 1.8 H (0.2-1.3) mg/dL AST 48 (17-59) U/L ALT 33 (4-49) U/L Alkaline Phosphatase 148 H (38-126) U/L Lactate Dehydrogenase (120-246) U/L Creatine Kinase (55-170) U/L Troponin I (0.000-0.034) ng/mL Total Protein 7.9 (6.3-8.2) g/dL Albumin 4.8 (3.5-5.0) g/dL Salicylates mg/dL Acetaminophen ug/mL Serum Alcohol mg/dL Acetone, Qual (Negative) Blood Type Blood Type Recheck Bld Type Recheck Status Antibody Screen Spec Expiration Date 10/03/24 10/03/24 10/03/24 Range/Units 02:00 02:00 02:00 WBC (4.50-10.00) 10*3/uL RBC (4.40-5.60) 10*6/uL Hgb (13.0-17.0) g/dL Hct (39.6-50.0) % MCV (80.0-97.0) fL MCH (27.0-32.0) pg MCHC (32.0-37.0) g/dL Plt Count (140-440) 10*3/uL MPV (9.5-12.2) fL Immature Gran % (Auto) % Neutrophils % % Lymphocytes % % Monocytes % % Eosinophils % % Basophils % % Immature Gran # (0.00-0.04) 10*3/uL Neutrophils # (1.80-7.70) 10*3/uL Lymphocytes # (0.90-5.00) 10*3/uL Monocytes # (0.20-1.00) 10*3/uL Eosinophils # (0.04-0.35) 10*3/uL Basophils # (0.00-0.10) 10*3/uL Manual Slide Review Polychromasia Target Cells [place] Bodies Retic Count (0.10-1.80) % PT (10.0-12.5) sec INR (<1.2) APTT (22.0-30.0) sec Fibrinogen 383 (200-500) mg/dL Sodium (137-145) mmol/L Potassium (3.5-5.1) mmol/L Chloride (98-107) mmol/L Carbon Dioxide (22-30) mmol/L Anion Gap mmol/L BUN (9-20) mg/dL Creatinine (0.66-1.25) mg/dL Est GFR (CKD-EPI)AfAm (>60 ml/min/1.73 sqM) Est GFR (CKD-EPI)NonAf (>60 ml/min/1.73 sqM) Glucose (74-99) mg/dL Lactic Ac Sepsis Rflx Plasma Lactic Acid Layo (0.7-2.0) mmol/L Calcium (8.4-10.2) mg/dL Phosphorus (2.5-4.5) mg/dL Magnesium (1.6-2.3) mg/dL Total Bilirubin (0.2-1.3) mg/dL AST (17-59) U/L ALT (4-49) U/L Alkaline Phosphatase (38-126) U/L Lactate Dehydrogenase 391 H (120-246) U/L Creatine Kinase (55-170) U/L Troponin I 0.015 (0.000-0.034) ng/mL Total Protein (6.3-8.2) g/dL Albumin (3.5-5.0) g/dL Salicylates mg/dL Acetaminophen ug/mL Serum Alcohol mg/dL Acetone, Qual (Negative) Blood Type Blood Type Recheck Bld Type Recheck Status Antibody Screen Spec Expiration Date 10/03/24 10/03/24 10/03/24 Range/Units 02:41 03:55 03:55 WBC 12.00 H (4.50-10.00) 10*3/uL RBC 2.01 L (4.40-5.60) 10*6/uL Hgb 8.8 L (13.0-17.0) g/dL Hct 23.4 L (39.6-50.0) % MCV 116.4 H (80.0-97.0) fL MCH 43.8 H (27.0-32.0) pg MCHC 37.6 H (32.0-37.0) g/dL Plt Count 183 (140-440) 10*3/uL MPV 10.4 (9.5-12.2) fL Immature Gran % (Auto) 0.3 % Neutrophils % 72.8 % Lymphocytes % 17.4 % Monocytes % 8.9 % Eosinophils % 0.3 % Basophils % 0.3 % Immature Gran # 0.03 (0.00-0.04) 10*3/uL Neutrophils # 8.75 H (1.80-7.70) 10*3/uL Lymphocytes # 2.09 (0.90-5.00) 10*3/uL Monocytes # 1.07 H (0.20-1.00) 10*3/uL Eosinophils # 0.03 L (0.04-0.35) 10*3/uL Basophils # 0.03 (0.00-0.10) 10*3/uL Manual Slide Review Performed Polychromasia Present Target Cells Present [place] Bodies Present Retic Count 9.30 H (0.10-1.80) % PT (10.0-12.5) sec INR (<1.2) APTT (22.0-30.0) sec Fibrinogen (200-500) mg/dL Sodium (137-145) mmol/L Potassium (3.5-5.1) mmol/L Chloride (98-107) mmol/L Carbon Dioxide (22-30) mmol/L Anion Gap mmol/L BUN (9-20) mg/dL Creatinine (0.66-1.25) mg/dL Est GFR (CKD-EPI)AfAm (>60 ml/min/1.73 sqM) Est GFR (CKD-EPI)NonAf (>60 ml/min/1.73 sqM) Glucose (74-99) mg/dL Lactic Ac Sepsis Rflx Y Plasma Lactic Acid Layo (0.7-2.0) mmol/L Calcium (8.4-10.2) mg/dL Phosphorus (2.5-4.5) mg/dL Magnesium (1.6-2.3) mg/dL Total Bilirubin (0.2-1.3) mg/dL AST (17-59) U/L ALT (4-49) U/L Alkaline Phosphatase (38-126) U/L Lactate Dehydrogenase (120-246) U/L Creatine Kinase (55-170) U/L Troponin I (0.000-0.034) ng/mL Total Protein (6.3-8.2) g/dL Albumin (3.5-5.0) g/dL Salicylates mg/dL Acetaminophen ug/mL Serum Alcohol mg/dL Acetone, Qual (Negative) Blood Type Blood Type Recheck Bld Type Recheck Status Antibody Screen Spec Expiration Date 10/03/24 10/03/24 10/03/24 Range/Units 04:09 05:00 05:25 WBC (4.50-10.00) 10*3/uL RBC (4.40-5.60) 10*6/uL Hgb (13.0-17.0) g/dL Hct (39.6-50.0) % MCV (80.0-97.0) fL MCH (27.0-32.0) pg MCHC (32.0-37.0) g/dL Plt Count (140-440) 10*3/uL MPV (9.5-12.2) fL Immature Gran % (Auto) % Neutrophils % % Lymphocytes % % Monocytes % % Eosinophils % % Basophils % % Immature Gran # (0.00-0.04) 10*3/uL Neutrophils # (1.80-7.70) 10*3/uL Lymphocytes # (0.90-5.00) 10*3/uL Monocytes # (0.20-1.00) 10*3/uL Eosinophils # (0.04-0.35) 10*3/uL Basophils # (0.00-0.10) 10*3/uL Manual Slide Review Polychromasia Target Cells [place] Bodies Retic Count (0.10-1.80) % PT (10.0-12.5) sec INR (<1.2) APTT (22.0-30.0) sec Fibrinogen (200-500) mg/dL Sodium (137-145) mmol/L Potassium (3.5-5.1) mmol/L Chloride (98-107) mmol/L Carbon Dioxide (22-30) mmol/L Anion Gap mmol/L BUN (9-20) mg/dL Creatinine (0.66-1.25) mg/dL Est GFR (CKD-EPI)AfAm (>60 ml/min/1.73 sqM) Est GFR (CKD-EPI)NonAf (>60 ml/min/1.73 sqM) Glucose (74-99) mg/dL Lactic Ac Sepsis Rflx Plasma Lactic Acid Layo <0.5 L (0.7-2.0) mmol/L Calcium (8.4-10.2) mg/dL Phosphorus (2.5-4.5) mg/dL Magnesium (1.6-2.3) mg/dL Total Bilirubin (0.2-1.3) mg/dL AST (17-59) U/L ALT (4-49) U/L Alkaline Phosphatase (38-126) U/L Lactate Dehydrogenase (120-246) U/L Creatine Kinase 30 L (55-170) U/L Troponin I (0.000-0.034) ng/mL Total Protein (6.3-8.2) g/dL Albumin (3.5-5.0) g/dL Salicylates <1.0 mg/dL Acetaminophen <10.0 ug/mL Serum Alcohol <10 mg/dL Acetone, Qual Negative (Negative) Blood Type Blood Type Recheck Bld Type Recheck Status Antibody Screen Spec Expiration Date 10/03/24 Range/Units 05:25 WBC (4.50-10.00) 10*3/uL RBC (4.40-5.60) 10*6/uL Hgb (13.0-17.0) g/dL Hct (39.6-50.0) % MCV (80.0-97.0) fL MCH (27.0-32.0) pg MCHC (32.0-37.0) g/dL Plt Count (140-440) 10*3/uL MPV (9.5-12.2) fL Immature Gran % (Auto) % Neutrophils % % Lymphocytes % % Monocytes % % Eosinophils % % Basophils % % Immature Gran # (0.00-0.04) 10*3/uL Neutrophils # (1.80-7.70) 10*3/uL Lymphocytes # (0.90-5.00) 10*3/uL Monocytes # (0.20-1.00) 10*3/uL Eosinophils # (0.04-0.35) 10*3/uL Basophils # (0.00-0.10) 10*3/uL Manual Slide Review Polychromasia Target Cells [place] Bodies Retic Count (0.10-1.80) % PT (10.0-12.5) sec INR (<1.2) APTT (22.0-30.0) sec Fibrinogen (200-500) mg/dL Sodium (137-145) mmol/L Potassium (3.5-5.1) mmol/L Chloride (98-107) mmol/L Carbon Dioxide (22-30) mmol/L Anion Gap mmol/L BUN (9-20) mg/dL Creatinine (0.66-1.25) mg/dL Est GFR (CKD-EPI)AfAm (>60 ml/min/1.73 sqM) Est GFR (CKD-EPI)NonAf (>60 ml/min/1.73 sqM) Glucose (74-99) mg/dL Lactic Ac Sepsis Rflx Plasma Lactic Acid Layo (0.7-2.0) mmol/L Calcium (8.4-10.2) mg/dL Phosphorus (2.5-4.5) mg/dL Magnesium (1.6-2.3) mg/dL Total Bilirubin (0.2-1.3) mg/dL AST (17-59) U/L ALT (4-49) U/L Alkaline Phosphatase (38-126) U/L Lactate Dehydrogenase (120-246) U/L Creatine Kinase (55-170) U/L Troponin I (0.000-0.034) ng/mL Total Protein (6.3-8.2) g/dL Albumin (3.5-5.0) g/dL Salicylates mg/dL Acetaminophen ug/mL Serum Alcohol mg/dL Acetone, Qual (Negative) Blood Type A Positive Blood Type Recheck A Pos Bld Type Recheck Status No Antibody Screen NEGATIVE Spec Expiration Date 10/06/20242324 - EKG Data -: EKG Interpreted by Me (EKG sinus 90 NC 143 QRS 82 QTc 376) - Radiology Data Radiology results: report reviewed (Chest x-ray possible for left lower lobe pneumonia), image reviewed Critical Care Time Critical Care Time: Yes Total Critical Care Time: 31 Disposition Clinical Impression: Acetaminophen overdose, Sickle cell anemia with crisis, Pneumonia, Drug overdo se, Altered mental state Disposition: ADMITTED IP TO THIS [facility] Condition: Serious Is patient prescribed a controlled substance at d/c from ED?: No Time of Disposition: 06:30
[2024-10-03] MEDS: ONDANSETRON 4 MG/2 ML VIAL IVP STA (01:54)
[2024-10-03] MEDS: LORazepam 1 MG/0.5 ML VIAL IV STA (01:54)
[2024-10-03] MEDS: SODIUM CHLORIDE 0.9% 1,000 ML IV ONE ×2 (01:58→04:21)
[2024-10-03 02:30] LABS: INR 1.0 (<1.2); Partial Thromboplastin Time 23.0 sec (22.0-30.0); Prothrombin Time 11.1 sec (10.0-12.5)
[2024-10-03 02:33] LABS: ALT 33 U/L (4-49); AST 48 U/L (17-59); African American GFR (CKD) >90 (>60 ml/min/1.73 sqM); Albumin 4.8 g/dL (3.5-5.0); Alkaline Phosphatase 148 U/L (38-126); Anion Gap 14 mmol/L; Blood Urea Nitrogen 10 mg/dL (9-20); Calcium 10.8 mg/dL (8.4-10.2); Carbon Dioxide 24 mmol/L (22-30); Chloride 102 mmol/L (98-107); Glucose 107 mg/dL (74-99); Magnesium 1.8 mg/dL (1.6-2.3); Non-African American GFR(CKD) >90 (>60 ml/min/1.73 sqM); Potassium 4.1 mmol/L (3.5-5.1); Sodium 140 mmol/L (137-145); Total Protein 7.9 g/dL (6.3-8.2)
[2024-10-03 04:06] LABS: Basophils # (A) 0.03 10*3/uL (0.00-0.10); Basophils % (A) 0.3 %; Eosinophils # (A) 0.03 10*3/uL (0.04-0.35); Eosinophils % (A) 0.3 %; HCT 23.4 % (39.6-50.0); HGB 8.8 g/dL (13.0-17.0); Lymphocytes # (A) 2.09 10*3/uL (0.90-5.00); Lymphocytes % (A) 17.4 %; MCHC 37.6 g/dL (32.0-37.0); MCV 116.4 fL (80.0-97.0); Monocytes # (A) 1.07 10*3/uL (0.20-1.00); Monocytes % (A) 8.9 %; Neutrophils # (A) 8.75 10*3/uL (1.80-7.70); Neutrophils % (A) 72.8 %; Platelet Count 183 10*3/uL (140-440); RBC 2.01 10*6/uL (4.40-5.60); RDW 15.1 % (11.5-14.5); WBC 12.00 10*3/uL (4.50-10.00)
[2024-10-03 04:11] LABS: MCH 43.8 pg (27.0-32.0)
[2024-10-03 04:52] LABS: Acetaminophen <10.0 ug/mL; Creatine Kinase 30 U/L (55-170); Salicylate <1.0 mg/dL
[2024-10-03 05:30] LABS: Howell-Jolly Bodies Present; Polychromasia Present; Target Cells Present
--- NOTE | 2024-10-03 06:02 | XR ---
EXAM: XR Chest, 1 View CLINICAL HISTORY: ITS.REASON XR Reason: sob TECHNIQUE: Frontal view of the chest. COMPARISON: X-ray dated 06/05/2024. FINDINGS: Lungs: Question of a left lower lobe pneumonia. The right lung is clear. Pleural space: Unremarkable. No pneumothorax. Heart: Unremarkable. No cardiomegaly. Mediastinum: Unremarkable. Normal mediastinal contour. Bones/joints: Unremarkable. No acute fracture. IMPRESSION: Possible left lower lobe pneumonia.
[2024-10-03] MEDS ORDERED: NALOXONE 0.4 MG/ML 1 ML VIAL IV PRN (06:35)
[2024-10-03] MEDS ORDERED: ONDANSETRON 4 MG/2 ML VIAL IVP PRN (06:35)
[2024-10-03] MEDS ORDERED: PNEUMONIA PROTOCOL UTILIZED 1 EACH MISC PO PRN (06:40)
[2024-10-03] MEDS ORDERED: IPRATROPIUM-ALBUTEROL 3 ML NEB INHALATION PRN (06:40)
[2024-10-03] MEDS: DEXTROSE 5%-0.45% NACL 1,000 ML IV SCH (07:03)
[2024-10-03] MEDS: AMPICILLIN-SULBACTAM 3 GM in SODIUM CHLORIDE 0.9% 100 ML IVPB STA (07:03)
[2024-10-03] MEDS: AZITHROMYCIN 500 MG in SODIUM CHLORIDE 0.9% 250 ML IVPB STA (10:28)
[2024-10-03] MEDS ORDERED: AMPICILLIN-SULBACTAM 3 GM in SODIUM CHLORIDE 0.9% 100 ML IVPB SCH (14:00)
--- NOTE | 2024-10-03 14:57 | HP ---
HISTORY AND PHYSICAL HISTORY OF PRESENT ILLNESS: A 34-year-old male coming for an overdose today. Multiple overdose of his Percocet, oxycodone, given Narcan, significant shaking tremor, does not participate, intentional overdose, and intent unable to say MEDICATIONS: Folic acid, Hydrea, Lyrica, and Motrin. ALLERGIES: He is allergies to cefazolin. PAST MEDICAL HISTORY: Sickle cell anemia and cholecystectomy. Current everyday smoker PHYSICAL EXAMINATION: CARDIOVASCULAR: S1 and S2. LUNGS: Transmitted upper sounds. GI: Soft. HEMATOLOGY: Negative Homans. ABDOMEN: Distended. NEUROLOGIC: Cranial nerves intact. PSYCH: Fair mood and affect. VITAL SIGNS: Reviewed. ASSESSMENT AND PLAN: Possible sickle cell crisis. He had opioid and Tylenol overdose prior to arrival. We will get psych to see him. Chronic pain doctor to see the patient also. He had a high lactic acid, is dehydrated, lactic acidosis. Fluid rehydration is being done. Please see further orders. Prognosis guarded. MMODL / IJN: [id number] /
--- NOTE | 2024-10-03 14:59 | P.CN ---
Psychiatric Consult - . Consult date: 10/03/24 Consult:: 10/03/24 14:53 IDENTIFYING DATA: This patient is a 34-year-old male, employed, REASON FOR REFERRAL: Psychiatry was consulted for OD HISTORY OF PRESENT ILLNESS: The patient presented to the hospital after overdosing on Percocet. Patient did receive 8 mg of Narcan prior to arrival, EKG showed sinus rhythm with QTc 376. Patient seen and evaluated in his room. He states feeling as though the overdose was due to him taking too much of his pain medications combined with Benadryl for sleep. He does report some sleep difficulties. He denies this being a suicide attempt, he was future oriented, talked about his desire to go back to work and gave screenplay writer permission to speak to for collateral. Other than insomnia he denies any anhedonia, low mood or energy, appetite changes. At this time patient denies any suicidal or homicidal ideations, intent or plan. Patient denies any auditory, visual hallucinations and denies any paranoia or delusions. Patients admits to using nicotine daily. Spoke to patient's Haleigh who states she does not feel as though the overdose was due to suicide attempt. She states patient has been more forgetful lately and she feels as though he might have taken too much of his Percocet by accident. She reports a strong support network with patient including his sabianism and her, see someone from his sabianism recently and was recently in therapy however his therapist left the practice and he has struggled with finding a new therapist since then. She does not feel as though patient has been depressed, denying any psychiatric concerns. She denied any access to firearms at home. PAST PSYCHIATRIC HISTORY: Patient has a history of depression. Patient denies being on any psychiatric medications. Patient reports remote inpatient hospitalization "many years ago". Patient was recently seeing a counselor however she left her practice. Patient denies any history of suicide attempts in the past. PAST MEDICAL HISTORY: Sickle cell anemia. ALLERGIES: as per EMR. CHEMICAL DEPENDENCY HISTORY: as per HPI. FAMILY PSYCHIATRIC/SUBSTANCE USE HISTORY: Patient states his brother has mental health issues SOCIAL HISTORY: Patient is and has no children between his however she has children of her own. He completed high school and is currently employed. MENTAL STATUS EXAM: General Appearance: Patient appears to be stated age is alert, pleasant, and cooperative. Patient appears to have fair hygiene and grooming wearing hospital gown with fair eye contact. Behavior: Patient is calmly lying in bed without any agitated behavior. Speech: Patient's speech is fluent and nonpressured. Mood/Affect: Patient reports their mood is "okay", affect is congruent Suicidality/Homicidality: Patient denies having any suicidal or homicidal ideation intent or plan. Perceptions: Patient denies any visual hallucinations and denies any auditory hallucinations Though content/process: There is no evidence of any delusional thought content and thought process is linear and goal-directed. Memory and concentration: AOX3, grossly intact for the purposes of this session. Can spell "WORLD" backwards Judgment and insight: Poor IMPRESSIONS: History of depression Nicotine dependence PLAN: -At this time patient DOES NOT meet criteria for inpatient psychiatric admission. Spoke to patient's who is agreeable with patient returning home. -Would recommend the following medication changes/additions: None, encourage patient to get reconnected with a counselor as his current one recently left -jordan worker to provide patient with outpatient mental health/psychiatry resources for appropriate follow up upon discharge -Psychiatry will sign off at this time -Please contact with any questions.
[2024-10-03 15:13] LABS: Barbiturate Screen,Urine Not Detected (NotDetected); Benzodiazepines Screen,Urine Detected (NotDetected); Opiate Screen,Urine Detected (NotDetected); Oxycodone Screen, Urine Detected (NotDetected); Phencyclidine Screen,Urine Not Detected (NotDetected); Tricyclic Antidepressant,Urine Not Detected (NotDetected); Urn Cannabinoid Scrn Not Detected (NotDetected)
--- NOTE | 2024-10-03 15:38 | CT ---
EXAMINATION TYPE: CT chest wo con DATE OF EXAM: 10/03/2024 COMPARISON: None CLINICAL INDICATION: Male, 34 years old with history of lll pneumonia; PHH, pneumonia, chest pain, ov erdose TECHNIQUE: CT scan of the thorax is performed without IV contrast. CT DLP: 402.[address] CTDI: mGy Automated exposure control for dose reduction was used. FINDINGS: LUNGS: The lungs are grossly clear, there is no concerning parenchymal mass or nodule identified. T here is no pleural effusion or pneumothorax seen. The tracheobronchial tree is patent. MEDIASTINUM: Lack of IV contrast is noted to limit evaluation for mediastinal and especially hilar ad enopathy. There are no definitive greater than 1 cm hilar or mediastinal lymph nodes. No cardiomega ly or pericardial effusion is seen. IMPRESSION: No significant abnormality seen. Follow-up recommendations for incidental pulmonary nodules are per [employer] or [employer]. [facility], Workstation: VU 10/03/2024 3:36 PM
[2024-10-03 16:10] LABS: ALT 24 U/L (4-49); AST 29 U/L (17-59); African American GFR (CKD) >90 (>60 ml/min/1.73 sqM); Albumin 3.7 g/dL (3.5-5.0); Alkaline Phosphatase 123 U/L (38-126); Anion Gap 9 mmol/L; Blood Urea Nitrogen 4 mg/dL (9-20); Calcium 9.7 mg/dL (8.4-10.2); Carbon Dioxide 20 mmol/L (22-30); Chloride 112 mmol/L (98-107); Glucose 100 mg/dL (74-99); Non-African American GFR(CKD) >90 (>60 ml/min/1.73 sqM); Potassium 4.0 mmol/L (3.5-5.1); Sodium 141 mmol/L (137-145); Total Protein 6.2 g/dL (6.3-8.2)
[2024-10-03] MEDS: HYDROmorphone 1 MG/ML 1 ML SYRINGE IVP PRN (17:07)
[2024-10-03] MEDS: AMPICILLIN-SULBACTAM 3 GM in SODIUM CHLORIDE 0.9% 100 ML IVPB SCH (18:54)
[2024-10-04 01:22] LABS: Basophils # (A) 0.02 10*3/uL (0.00-0.10); Basophils % (A) 0.2 %; Eosinophils # (A) 0.04 10*3/uL (0.04-0.35); Eosinophils % (A) 0.4 %; HCT 24.0 % (39.6-50.0); HGB 8.7 g/dL (13.0-17.0); Lymphocytes # (A) 4.35 10*3/uL (0.90-5.00); Lymphocytes % (A) 48.8 %; MCHC 36.3 g/dL (32.0-37.0); Monocytes # (A) 0.85 10*3/uL (0.20-1.00); Monocytes % (A) 9.5 %; Neutrophils # (A) 3.63 10*3/uL (1.80-7.70); Neutrophils % (A) 40.9 %; Platelet Count 183 10*3/uL (140-440); RBC 2.02 10*6/uL (4.40-5.60); RDW 15.5 % (11.5-14.5); WBC 8.91 10*3/uL (4.50-10.00)
[2024-10-04 01:36] LABS: ALT 21 U/L (4-49); AST 29 U/L (17-59); African American GFR (CKD) >90 (>60 ml/min/1.73 sqM); Albumin 3.5 g/dL (3.5-5.0); Alkaline Phosphatase 102 U/L (38-126); Anion Gap 8 mmol/L; Blood Urea Nitrogen 6 mg/dL (9-20); Calcium 9.8 mg/dL (8.4-10.2); Carbon Dioxide 26 mmol/L (22-30); Chloride 108 mmol/L (98-107); Glucose 121 mg/dL (74-99); Magnesium 2.0 mg/dL (1.6-2.3); Non-African American GFR(CKD) >90 (>60 ml/min/1.73 sqM); Potassium 3.7 mmol/L (3.5-5.1); Sodium 142 mmol/L (137-145); Total Protein 5.9 g/dL (6.3-8.2)
[2024-10-04 01:49] LABS: MCH 43.1 pg (27.0-32.0)
[2024-10-04 01:50] LABS: MCV 118.8 fL (80.0-97.0)
[2024-10-04] MEDS: IOPAMIDOL CONTRAST (ORAL USE) VIAL PO PRN (04:30)
--- NOTE | 2024-10-04 07:31 | XR ---
EXAMINATION TYPE: XR chest 2V DATE OF EXAM: 10/04/2024 6:35 AM COMPARISON: Chest radiographs from 10/03/2024 CLINICAL INDICATION: Male, 34 years old with history of pneumonia; [facility] TECHNIQUE: XR chest 2V Frontal and lateral views of the chest. FINDINGS: Lungs/Pleura: There is no evidence of pleural effusion, focal consolidation, or pneumothorax. Pulmonary vascularity: Unremarkable. Heart/mediastinum: Cardiomediastinal silhouette is unremarkable. Musculoskeletal: No acute osseous pathology. IMPRESSION: No acute cardiopulmonary disease/process. [facility], , 10/04/2024 7:29 AM
--- NOTE | 2024-10-04 07:50 | CT ---
EXAMINATION TYPE: CT abdomen pelvis w con DATE OF EXAM: 10/04/2024 6:48 AM COMPARISON: CT abdomen pelvis most recent from 09/12/2024. CLINICAL INDICATION: Male, 34 years old with history of abd pain, leukocytosis; TECHNIQUE: Axial CT abdomen pelvis w con;Sagittal and coronal reformats were created on a separate w orkstation. Contrast used:100 mL of Isovue 300 with IV Contrast, (none if empty) Oral contrast used: with Oral Contrast (none if empty) CT DLP: 779 mGycm, Automated exposure control for dose reduction was used. FINDINGS: LOWER CHEST: Unremarkable ABDOMEN LIVER: Unremarkable GALLBLADDER AND BILE DUCTS: The gallbladder is surgically absent. PANCREAS: Unremarkable. SPLEEN: Unremarkable. ADRENAL GLANDS: Unremarkable. KIDNEYS AND URETERS: No evidence of hydronephrosis or obstructing renal calculus. The ureters are unr emarkable. PELVIS BLADDER: No evidence for wall thickening or mass given limitations of exam. REPRODUCTIVE: Unremarkable. ABDOMEN & PELVIS STOMACH AND BOWEL: No evidence of bowel obstruction. The appendix is normal. PERITONEUM/RETROPERITONEUM: No evidence of pneumoperitoneum or free fluid. VASCULATURE: No evidence of aortic aneurysm. MUSCULOSKELETAL: No acute osseous abnormalities LYMPH NODES: No gross evidence for lymphadenopathy. SOFT TISSUE/ABDOMINAL WALL: Fat-containing umbilical hernia. IMPRESSION: No evidence for acute process. The appendix is normal. No obstructive uropathy or renal calculus. No lymphadenopathy or organizing fluid collection. [facility], , 10/04/2024 7:48 AM
--- NOTE | 2024-10-04 07:56 | P.CONS ---
History of Present Illness - Reason for Consult Consult date: 10/03/24 Pneumonia Requesting physician: Pantera Helms - Chief Complaint Not feeling right x few days - History of Present Illness Patient is a 34-year-old -[place] male with a past medical he significant for sickle cell anemia current everyday smoker has been brought into the hospital concerning for overdosing on Percocet patient apparently took his medication to help him for sleep and mention he was brought to the hospital as the patient was not feeling right patient denies having any headache or URI symptoms no chest pain shortness of breath or cough he did have some nausea but no vomiting some vague abdominal discomfort no constipation no diarrhea and no urinary symptoms on presentation to the hospital the patient was afebrile no fever have been recorded subsequently patient was tachycardic on admission subsequently resolved he was not hypotensive or hypoxic patient noticed to have elevated white count of 12,000 with a left shift creatinine was normal lactic acid was normal bilirubin is mildly elevated though rest of the liver enzymes are normal urine testing was positive for opiates oxycodone and benzo urine for Legionella antigen negative patient did have a chest x-ray possible left lower lobe pneumonia however CT chest did not show any significant abnormality patient was started on Unasyn infectious disease was consulted concerning for pneumonia Review of Systems Positive point and negatives has been mentioned in the HPI, complete review of systems was performed and all other systems are negative Past Medical History Past Medical History: Blood Disorder Additional Past Medical History / Comment(s): sickle cell, Anemia History of Any Multi-Drug Resistant Organisms: None Reported Past Surgical History: Cholecystectomy Additional Past Surgical History / Comment(s): 2010 cholecystectomy Past Anesthesia/Blood Transfusion Reactions: No Reported Reaction Past Psychological History: No Psychological Hx Reported Smoking Status: Current every day smoker Past Alcohol Use History: None Reported Past Drug Use History: None Reported - Past Family History Mother Additional Family Medical History / Comment(s): mental illness Medications and Allergies Home Medications Medication Instructions Recorded Confirmed Type Folic Acid 1 mg PO DAILY 05/20/23 10/03/24 History Hydroxyurea [Hydrea] 1,500 mg PO DAILY 05/20/23 10/03/24 History oxyCODONE ER [OxyCONTIN] 10 mg PO Q12HR 10/03/24 10/03/24 History oxyCODONE-APAP 10-325MG [Percocet 1 tab PO Q6H PRN 10/03/24 10/03/24 History 10-325 mg] Allergies Allergy/AdvReac Type Severity Reaction Status Date / Time cefazolin Allergy Rash/Hives Verified 10/03/24 09:39 Physical Exam Vitals: Vital Signs Temp Pulse Pulse Resp BP BP Pulse Ox 10/03/24 20:00 66 16 110/63 97 10/03/24 19:06 98.6 F 70 19 110/63 99 10/03/24 17:07 18 10/03/24 17:02 99 18 143/75 100 10/03/24 12:32 69 15 99/59 10/03/24 11:00 72 18 101/67 95 10/03/24 10:00 75 18 98/51 95 10/03/24 09:00 64 18 106/63 96 10/03/24 06:33 74 18 112/83 96 10/03/24 03:24 81 16 111/76 97 10/03/24 01:43 97.8 F 128 H 22 133/82 98 Intake and Output 10/03/24 10/03/24 10/03/24 06:59 14:59 22:59 Other: Voiding Method Toilet Weight 74.843 kg GENERAL DESCRIPTION: Middle-age male lying in bed, no distress. No tachypnea or accessory muscle of respiration use. HEENT: Shows Pallor , no scleral icterus. Oral mucous membrane is dry. NECK: Trachea central, no thyromegaly. LUNGS: Unlabored breathing. Clear to auscultation anteriorly. No wheeze or crackle. HEART: S1, S2, regular rate and rhythm. No loud murmur ABDOMEN: Soft, left-sided tenderness EXTREMITIES: No edema of feet. SKIN: No rash, no masses palpable. NEUROLOGICAL: The patient is awake, mood and affect normal. Results CBC & Chem 7: 10/04/24 00:30 10/04/24 00:30 Labs: Abnormal Lab Results - Last 24 Hours (Table) 10/03/24 10/03/24 10/03/24 Range/Units 02:00 02:00 02:00 WBC (4.50-10.00) 10*3/uL RBC (4.40-5.60) 10*6/uL Hgb (13.0-17.0) g/dL Hct (39.6-50.0) % MCV (80.0-97.0) fL MCH (27.0-32.0) pg MCHC (32.0-37.0) g/dL Neutrophils # (1.80-7.70) 10*3/uL Monocytes # (0.20-1.00) 10*3/uL Eosinophils # (0.04-0.35) 10*3/uL Retic Count (0.10-1.80) % Chloride (98-107) mmol/L Carbon Dioxide (22-30) mmol/L BUN (9-20) mg/dL Creatinine (0.66-1.25) mg/dL Glucose 107 H (74-99) mg/dL Plasma Lactic Acid Layo 3.1 H* (0.7-2.0) mmol/L Calcium 10.8 H (8.4-10.2) mg/dL Total Bilirubin 1.8 H (0.2-1.3) mg/dL Alkaline Phosphatase 148 H (38-126) U/L Lactate Dehydrogenase 391 H (120-246) U/L Creatine Kinase (55-170) U/L Total Protein (6.3-8.2) g/dL Urine Opiates Screen (NotDetected) Ur Oxycodone Screen (NotDetected) U Benzodiazepines Scrn (NotDetected) 10/03/24 10/03/24 10/03/24 Range/Units 03:55 03:55 04:09 WBC 12.00 H (4.50-10.00) 10*3/uL RBC 2.01 L (4.40-5.60) 10*6/uL Hgb 8.8 L (13.0-17.0) g/dL Hct 23.4 L (39.6-50.0) % MCV 116.4 H (80.0-97.0) fL MCH 43.8 H (27.0-32.0) pg MCHC 37.6 H (32.0-37.0) g/dL Neutrophils # 8.75 H (1.80-7.70) 10*3/uL Monocytes # 1.07 H (0.20-1.00) 10*3/uL Eosinophils # 0.03 L (0.04-0.35) 10*3/uL Retic Count 9.30 H (0.10-1.80) % Chloride (98-107) mmol/L Carbon Dioxide (22-30) mmol/L BUN (9-20) mg/dL Creatinine (0.66-1.25) mg/dL Glucose (74-99) mg/dL Plasma Lactic Acid Layo (0.7-2.0) mmol/L Calcium (8.4-10.2) mg/dL Total Bilirubin (0.2-1.3) mg/dL Alkaline Phosphatase (38-126) U/L Lactate Dehydrogenase (120-246) U/L Creatine Kinase 30 L (55-170) U/L Total Protein (6.3-8.2) g/dL Urine Opiates Screen (NotDetected) Ur Oxycodone Screen (NotDetected) U Benzodiazepines Scrn (NotDetected) 10/03/24 10/03/24 10/03/24 Range/Units 05:25 14:24 15:27 WBC (4.50-10.00) 10*3/uL RBC (4.40-5.60) 10*6/uL Hgb (13.0-17.0) g/dL Hct (39.6-50.0) % MCV (80.0-97.0) fL MCH (27.0-32.0) pg MCHC (32.0-37.0) g/dL Neutrophils # (1.80-7.70) 10*3/uL Monocytes # (0.20-1.00) 10*3/uL Eosinophils # (0.04-0.35) 10*3/uL Retic Count (0.10-1.80) % Chloride 112 H (98-107) mmol/L Carbon Dioxide 20 L (22-30) mmol/L BUN 4 L (9-20) mg/dL Creatinine 0.60 L (0.66-1.25) mg/dL Glucose 100 H (74-99) mg/dL Plasma Lactic Acid Layo <0.5 L (0.7-2.0) mmol/L Calcium (8.4-10.2) mg/dL Total Bilirubin 1.6 H (0.2-1.3) mg/dL Alkaline Phosphatase (38-126) U/L Lactate Dehydrogenase (120-246) U/L Creatine Kinase (55-170) U/L Total Protein 6.2 L (6.3-8.2) g/dL Urine Opiates Screen Detected H (NotDetected) Ur Oxycodone Screen Detected H (NotDetected) U Benzodiazepines Scrn Detected H (NotDetected) Assessment and Plan (1) Leukocytosis Current Visit: Yes Status: Acute Code(s): D72.829 - ELEVATED WHITE BLOOD CELL COUNT, UNSPECIFIED SNOMED Code(s): 510812243 (2) Allergy to cephalosporin Current Visit: Yes Status: Acute Code(s): Z88.1 - ALLERGY STATUS TO OTHER ANTIBIOTIC AGENTS SNOMED Code(s): 889705638 (3) Abdominal tenderness Current Visit: Yes Status: Acute Code(s): R10.819 - ABDOMINAL TENDERNESS, UNSPECIFIED SITE SNOMED Code(s): 11801476 Plan: 1patient presented to hospital concerning for not feeling right in this patient with concern for possible overdosing on the Percocet with a history of chronic pain syndrome chest x-ray showed left lower lobe pneumonia however CT of the [place] st did not show any acute abnormality patient did have significant respiratory symptoms suggestive of pneumonia he did have elevated white count also noted to have some tenderness to abdominal will need to rule out any new abdominal source. 2patient did have cefazolin allergy that would limit the number of antibiotic safe to use 3we will obtain CT of abdominal pelvis with contrast to better define underlying pathology. 4will treat with empiric Unasyn while waiting for the workup to be completed. We will follow on clinical condition and cultures to further adjust medication if needed Thank you for this consultation we will follow the patient along with you Dictation was produced using [employer] dictation software. please excuse any grammatical, word or spelling errors. Time with Patient: Greater than 30
[2024-10-04] MEDS: FOLIC ACID 1 MG TAB PO SCH (08:10)
[2024-10-04] MEDS: HYDROXYUREA 500 MG CAP PO SCH (08:11)
[2024-10-04] MEDS: AZITHROMYCIN 500 MG in SODIUM CHLORIDE 0.9% 250 ML IVPB SCH (08:38)
[2024-10-04 11:29] VITALS: BMI 18.6
--- NOTE | 2024-10-04 13:56 | P.PN ---
Subjective Progress Note Date: 10/04/24 Principal diagnosis: Reason for follow-up is leukocytosis Patient is a 34-year-old -[place] male with a past medical he significant for sickle cell anemia current everyday smoker has been brought into the hospital concerning for overdosing on Percocet was complaining of not feeling right he did have mild elevated white count and some abdominal tenderness patient did have a CT did not show any acute abnormality. On today's evaluation that is 10/04/2024,the patient remains to be afebrile, patient is on room air not requiring supplemental oxygen and denies any shortne ss of breath no chest pain or cough.Patient denies having any nausea or vomiting, no abdominal pain and no diarrhea. Patient white normalized to 8.91, creatinine 0.55 CT abdominal pelvis did not show any acute abnormality Objective - Vital Signs Vital signs: Vital Signs Temp 97.9 F 10/04/24 07:55 Pulse 58 L 10/04/24 07:55 Resp 16 10/04/24 07:55 BP 116/72 10/04/24 07:55 Pulse Ox 97 10/04/24 07:55 FiO2 Intake & Output 10/03/24 10/04/24 10/04/24 18:59 06:59 18:59 Weight 59 kg 59 kg Other: Voiding Method Toilet # Voids 2 - Exam GENERAL DESCRIPTION: Middle-age male lying in bed in no distress RESPIRATORY SYSTEM: Unlabored breathing , decreased breath sounds at bases HEART: S1 S2 regular rate and rhythm , ABDOMEN: Soft , no tenderness EXTREMITIES: No edema feet - Labs CBC & Chem 7: 10/04/24 00:30 10/04/24 00:30 Labs: Abnormal Lab Results - Last 24 Hours (Table) 10/03/24 10/03/24 10/04/24 Range/Units 14:24 15:27 00:30 RBC 2.02 L (4.40-5.60) 10*6/uL Hgb 8.7 L (13.0-17.0) g/dL Hct 24.0 L (39.6-50.0) % MCV 118.8 H (80.0-97.0) fL MCH 43.1 H (27.0-32.0) pg Chloride 112 H (98-107) mmol/L Carbon Dioxide 20 L (22-30) mmol/L BUN 4 L (9-20) mg/dL Creatinine 0.60 L (0.66-1.25) mg/dL Glucose 100 H (74-99) mg/dL Total Bilirubin 1.6 H (0.2-1.3) mg/dL Total Protein 6.2 L (6.3-8.2) g/dL Urine Opiates Screen Detected H (NotDetected) Ur Oxycodone Screen Detected H (NotDetected) U Benzodiazepines Scrn Detected H (NotDetected) 10/04/24 Range/Units 00:30 RBC (4.40-5.60) 10*6/uL Hgb (13.0-17.0) g/dL Hct (39.6-50.0) % MCV (80.0-97.0) fL MCH (27.0-32.0) pg Chloride 108 H (98-107) mmol/L Carbon Dioxide (22-30) mmol/L BUN 6 L (9-20) mg/dL Creatinine 0.55 L (0.66-1.25) mg/dL Glucose 121 H (74-99) mg/dL Total Bilirubin 1.8 H (0.2-1.3) mg/dL Total Protein 5.9 L (6.3-8.2) g/dL Urine Opiates Screen (NotDetected) Ur Oxycodone Screen (NotDetected) U Benzodiazepines Scrn (NotDetected) Assessment and Plan (1) Leukocytosis Current Visit: Yes Status: Acute Code(s): D72.829 - ELEVATED WHITE BLOOD CELL COUNT, UNSPECIFIED SNOMED Code(s): 265402151 (2) Allergy to cephalosporin Current Visit: Yes Status: Acute Code(s): Z88.1 - ALLERGY STATUS TO OTHER ANTIBIOTIC AGENTS SNOMED Code(s): 773537546 (3) Abdominal tenderness Current Visit: Yes Status: Acute Code(s): R10.819 - ABDOMINAL TENDERNESS, UNSPECIFIED SITE SNOMED Code(s): 89657598 Plan: 1patient presented to hospital concerning for not feeling right in this patient with concern for possible overdosing on the Percocet with a history of chronic pain syndrome chest x-ray showed left lower lobe pneumonia however CT of the chest did not show any acute abnormality patient did have significant respir atory symptoms suggestive of pneumonia he did have elevated white count also noted to have some tenderness to abdominal will need to rule out any new abdominal source. 2patient did have cefazolin allergy that would limit the number of antibiotic safe to use 3patient did have CT of abdominal pelvis with contrast did not show any acute abnormality 4patient continue with Unasyn while waiting for the culture finalized as the patient white count has normalized Dictation was produced using [employer] dictation software. please excuse any grammatical, word or spelling errors. Time with Patient: Less than 30
[2024-10-05 07:58] LABS: Basophils # (A) 0.01 X 10*3/uL (0.00-0.10); Basophils % (A) 0.1 %; Eosinophils # (A) 0.05 X 10*3/uL (0.04-0.35); Eosinophils % (A) 0.7 %; HCT 24.0 % (39.6-50.0); HGB 8.4 g/dL (13.0-17.0); Immature Grans, Automated 0.10 %; Lymphocytes # (A) 3.98 X 10*3/uL (0.90-5.00); Lymphocytes % (A) 56.9 %; MCH 41.8 pg (27.0-32.0); MCHC 35.0 g/dL (32.0-37.0); MCV 119.4 FL (80.0-97.0); Monocytes # (A) 0.79 X 10*3/uL (0.20-1.00); Monocytes % (A) 11.3 %; NRBC Per 100 WBC 0.14 X 10*3/uL (0.00-0.01); Neutrophils # (A) 2.15 X 10*3/uL (1.80-7.70); Neutrophils % (A) 30.9 %; Platelet Count 205 X 10*3/uL (140-440); RBC 2.01 X 10*6/uL (4.40-5.60); RDW 16.0 % (11.5-14.5); WBC 6.99 X 10*3/uL (4.50-10.00)
[2024-10-05 08:14] LABS: ALT 20 U/L (10-49); AST 22 U/L (14-35); Albumin 3.8 g/dL (3.8-4.9); Albumin/Globulin Ratio 2.00 Ratio (1.60-3.17); Alkaline Phosphatase 112 U/L (41-126); Anion Gap 9.70 mmol/L (4.00-12.00); BUN/Creat Ratio 9.83 Ratio (12.00-20.00); Blood Urea Nitrogen 5.9 mg/dL (9.0-27.0); Calcium 9.4 mg/dL (8.7-10.3); Carbon Dioxide 20.3 mmol/L (21.6-31.8); Chloride 112 mmol/L (96-109); Globulin 1.9 g/dL (1.6-3.3); Glucose 112 mg/dL (70-110); Potassium 4.1 mmol/L (3.5-5.5); Sodium 142 mmol/L (135-145); Total Protein 5.7 g/dL (6.2-8.2)
--- NOTE | 2024-10-05 15:34 | P.PN ---
Subjective Progress Note Date: 10/05/24 Principal diagnosis: Reason for follow-up is leukocytosis Patient is a 34-year-old -Chinese male with a past medical he significant for sickle cell anemia current everyday smoker has been brought into the hospital concerning for overdosing on Percocet was complaining of not feeling right he did have mild elevated white count and some abdominal tenderness patient did have a CT did not show any acute abnormality. On today's evaluation that is 10/05/2024, the patient continues to be afebrile, the patient is on room air and breathing comfortably, the Pt denies having any chest pain or cough, the patient denies having any abdominal pain no vomiting or any diarrhea mention feeling better. Patient white count is 6.99, creatinine 0.6 blood culture has been negative so far Objective - Vital Signs Vital signs: Vital Signs Temp 98 F 10/05/24 06:52 Pulse 53 L 10/05/24 06:52 Resp 18 10/05/24 06:52 BP 121/65 10/05/24 06:52 Pulse Ox 94 L 10/05/24 06:52 FiO2 Intake & Output 10/04/24 10/05/24 10/05/24 18:59 06:59 18:59 Weight 59 kg 59.5 kg Other: # Voids 2 1 # Bowel Movements 1 - Exam GENERAL DESCRIPTION: Middle-age male lying in bed in no distress RESPIRATORY SYSTEM: Unlabored breathing , decreased breath sounds at bases HEART: S1 S2 regular rate and rhythm , ABDOMEN: Soft , no tenderness EXTREMITIES: No edema feet - Labs CBC & Chem 7: 10/05/24 05:18 10/05/24 05:18 Labs: Abnormal Lab Results - Last 24 Hours (Table) 10/05/24 10/05/24 Range/Units 05:18 05:18 RBC 2.01 L (4.40-5.60) X 10*6/uL Hgb 8.4 L (13.0-17.0) g/dL Hct 24.0 L (39.6-50.0) % MCV 119.4 H (80.0-97.0) FL MCH 41.8 H (27.0-32.0) pg RDW 16.0 H (11.5-14.5) % NRBC/100 WBC Diff 0.14 H (0.00-0.01) X 10*3/uL Chloride 112 H (96-109) mmol/L Carbon Dioxide 20.3 L (21.6-31.8) mmol/L BUN 5.9 L (9.0-27.0) mg/dL BUN/Creatinine Ratio 9.83 L (12.00-20.00) Ratio Glucose 112 H (70-110) mg/dL Total Bilirubin 1.3 H (0.3-1.2) mg/dL Total Protein 5.7 L (6.2-8.2) g/dL Microbiology - Last 24 Hours (Table) 10/03/24 23:54 Blood Culture - Preliminary Blood Assessment and Plan (1) Leukocytosis Current Visit: Yes Status: Acute Code(s): D72.829 - ELEVATED WHITE BLOOD CELL COUNT, UNSPECIFIED SNOMED Code(s): 072382820 (2) Allergy to cephalosporin Current Visit: Yes Status: Acute Code(s): Z88.1 - ALLERGY STATUS TO OTHER ANTIBIOTIC AGENTS SNOMED Code(s): 194066674 (3) Abdominal tenderness Current Visit: Yes Status: Acute Code(s): R10.819 - ABDOMINAL TENDERNESS, UNSPECIFIED SITE SNOMED Code(s): 83510328 Plan: 1patient presented to hospital concerning for not feeling right in this patient with concern for possible overdosing on the Percocet with a history of chronic pain syndrome chest x-ray showed left lower lobe pneumonia however CT of the chest did not show any acute abnormality patient did have significant respiratory symptoms suggestive of pneumonia he did have elevated white count also noted to have some tenderness to abdominal will need to rule out any new abdominal source. 2patient did have cefazolin allergy that would limit the number of antibiotic safe to use 3patient did have CT of abdominal pelvis with contrast did not show any acute abnormality 4patient is afebrile white count has been normal, continue with Unasyn while waiting for the culture finalized. Dictation was produced using [employer] dictation software. please excuse any grammatical, word or spelling errors. Time with Patient: Less than 30
--- NOTE | 2024-10-06 00:27 | PN ---
PROGRESS NOTE DATE OF SERVICE: 10/04/2024 SUBJECTIVE: This is a 34-year-old white male with pneumonia and treated with antibiotics IV. OBJECTIVE: CARDIOVASCULAR: S1, S2. LUNGS: Scattered wheeze. Sickle cell crisis, sickle cell anemia, [id number] abdominal pain, pneumonia, antibiotic treatments. Prognosis treated. Possible discharge home next day or 2. MMODL / IJN: [id number] /
[2024-10-06 01:45] VITALS: PULSE 62
[2024-10-06 07:46] VITALS: RESP 16
[2024-10-06 12:27] VITALS: BP 126/75; TEMP 98.6
--- NOTE | 2024-10-06 14:15 | P.PN ---
Subjective Progress Note Date: 10/06/24 Principal diagnosis: Reason for follow-up is leukocytosis Patient is a 34-year-old -Singaporean male with a past medical he significant for sickle cell anemia current everyday smoker has been brought into the hospital concerning for overdosing on Percocet was complaining of not feeling right he did have mild elevated white count and some abdominal tenderness patient did have a CT did not show any acute abnormality. On today's evaluation that is 10/07/2023, patient did have a temperature of 98 F this morning and denies having any chills, patient is on room air and claudy thing comfortably no chest pain or cough, the patient did not have any nausea vomiting abdominal pain or any diarrhea. Patient did not have lab draw today white count was normal as of yesterday blood culture has been negative Objective - Vital Signs Vital signs: Vital Signs Temp 98.6 F 10/06/24 12:25 Pulse 62 10/06/24 12:25 Resp 16 10/06/24 12:25 BP 126/75 10/06/24 12:25 Pulse Ox 100 10/06/24 12:25 FiO2 21 10/06/24 08:28 Intake & Output 10/05/24 10/06/24 10/06/24 18:59 06:59 18:59 Intake Total 465 Balance 465 Weight 58 kg Intake: IV 225 Dextrose 5%-0.45% NaCl 1, 225 000 ml @ 75 mls/hr IV . [id number] [facility] Rx#:[id number] Oral 240 Other: Voiding Method Toilet # Voids 2 2 # Bowel Movements 1 - Exam GENERAL DESCRIPTION: Middle-age male lying in bed in no distress RESPIRATORY SYSTEM: Unlabored breathing , decreased breath sounds at bases HEART: S1 S2 regular rate and rhythm , ABDOMEN: Soft , no tenderness EXTREMITIES: No edema feet - Labs CBC & Chem 7: 10/05/24 05:18 10/05/24 05:18 Labs: Microbiology - Last 24 Hours (Table) 10/03/24 23:54 Blood Culture - Preliminary Blood Assessment and Plan (1) Leukocytosis Current Visit: Yes Status: Acute Code(s): D72.829 - ELEVATED WHITE BLOOD CELL COUNT, UNSPECIFIED SNOMED Code(s): 904239465 (2) Allergy to cephalosporin Current Visit: Yes Status: Acute Code(s): Z88.1 - ALLERGY STATUS TO OTHER ANTIBIOTIC AGENTS SNOMED Code(s): 962723072 (3) Abdominal tenderness Current Visit: Yes Status: Acute Code(s): R10.819 - ABDOMINAL TENDERNESS, UNSPECIFIED SITE SNOMED Code(s): 90573774 Plan: 1patient presented to hospital concerning for not feeling right in this patient with concern for possible overdosing on the Percocet with a history of chronic pain syndrome chest x-ray showed left lower lobe pneumonia however CT of the chest did not show any acute abnormality patient did have significant respiratory symptoms suggestive of pneumonia he did have elevated white count also noted to have some tenderness to abdominal will need to rule out any new abdominal source. 2patient did have cefazolin allergy that would limit the number of antibiotic safe to use 3patient did have CT of abdominal pelvis with contrast did not show any acute abnormality 4patient is afebrile white count has been normal, culture has been negative did well on Unasyn May consider short course of oral Augmentin on discharge Dictation was produced using [employer] dictation software. please excuse any grammatical, word or spelling errors.
[2024-10-07] MEDS ORDERED: AZITHROMYCIN 500 MG TAB PO SCH (09:00)
== END 2024-10-06 14:31 | disposition home or self-care (01) ==
LOC: EC 01:43 → 3SCARD 06:35 → 4SSUR 21:22
PROVIDERS: ADMIT Family Medicine; ATTEND Family Medicine
DX: T39.1X2A Poisoning by 4-Aminophenol derivatives, intentional self-harm, initial encounter (principal); D57.00 Hb-SS disease with crisis, unspecified; E86.0 Dehydration; E87.20 Acidosis, unspecified; J18.9 Pneumonia, unspecified organism; D72.829 Elevated white blood cell count, unspecified; F17.200 Nicotine dependence, unspecified, uncomplicated; F32.A Depression, unspecified; G47.00 Insomnia, unspecified; D64.9 Anemia, unspecified; Z88.1 Allergy status to other antibiotic agents; Z79.899 Other long term (current) drug therapy; Z79.891 Long term (current) use of opiate analgesic
CPT/HCPCS: 96376 ×4; 96361 ×2; 96366 ×4; 96367 ×2; 96365 ×2; 96375; 99291; 36415; 94760; 93005; 86900; 86901; 80053 ×3; 87449; 82550; 82009; 83605; 83615; 83735 ×2; 84100 ×2; 84484; 85025 ×3; 85384; 85610; 85045; 85730; 86850; 87040; 80306; 80143; 80179; 71045; 71046; 71250; 74177; G0378 ×4; G0480; S0176 ×3; J2060; J2405; J0456 ×3; J1171 ×4; J0295 ×4; Q9967; 80320; 99285